=== PATIENT | male | born 2000 | race Caucasian/White ===

== ENCOUNTER 2022-03-20 14:41 | Emergency (ER) | payer OTHER, SELFPAY ==
--- NOTE | ~2022-03-20 | XR_ITS ---
EXAMINATION: XR foot LT min 3V DATE: 03/20/2022 15:07 INDICATION: Left foot pain. Injury. TECHNIQUE: 4 views of left foot were obtained. COMPARISON: None. FINDINGS: There is moderate hallux valgus. No fracture. Joint spaces are normal. IMPRESSION: 1. Moderate hallux valgus. Reviewed, dictated and finalized at location A. TIC CUTTER IMPRESSION: 1. Moderate hallux valgus.
--- NOTE | 2022-03-20 14:44 | ED.LOWEXIN ---
HPI - Extremity Injury (Lower) General Chief Complaint: Extremity Injury, Lower Stated Complaint: left foot injury Time Seen by Provider: 03/20/22 14:55 Source: patient and RN notes reviewed Mode of arrival: ambulatory Limitations: no limitations History of Present Illness HPI Narrative: 21-year-old male presents with concern for left ankle and foot injury. He reports that 2 days ago he rolled the ankle playing basketball. Reports he has been using crutches and has wrap the ankle. He reports pain worsens with weight-bearing MD complaint: ankle injury and foot injury Related Data Home Medications Medication Instructions Recorded Confirmed No Home Medications 03/20/22 03/20/22 Allergies Allergy/AdvReac Type Severity Reaction Status Date / Time No Known Allergies Allergy Verified 03/20/22 14:48 Review of Systems Review of Systems: CONSTITUTIONAL: Denies malaise, chills, sweats, or fever. SKIN: Denies rash or itching, open skin, laceration, abrasion, redness, warmth, swelling. MUSCULOSKELETAL: Reports left ankle and foot pain NEUROLOGIC: Denies numbness, weakness All systems reviewed & are unremarkable except as noted in HPI and below PMFSH Comments At time of signature, agree with nursing past medical, surgical, social and family history. There is no relevant family history pertinent to the presenting complaint Exam Narrative: GENERAL: Well-appearing, well-nourished, and in no acute distress. HEAD: Normocephalic, atraumatic. EYES: PERRLA, conjunctivae clear NECK: Supple. CHEST: Speaks in full sentences. No respiratory distress. HEART: Regular rate and rhythm. Normal and equal peripheral pulses. EXTREMITIES: Left ankle, foot, digits have grossly normal strength and sensation, grossly normal range of motion. Mild medial foot edema without ecchymosis. 5/5 strength with ankle in digit flexion and extension. Normal sensation with sensitivity to light touch and pain. Medial tenderness. No open wounds, no skin tenting, no devitalized tissue or atrophy, no trophic changes, no obvious deformity, alignment normal, nearby joints and structures intact. Distal pulses palpable and equal bilaterally, skin warm, dry, pink. Capillary refill less than 3 seconds. SKIN: Warm, dry, no rash. NEURO: Alert and oriented x3. PSYCH: Normal mood and affect Course Course Emergency Course: Patient is aware of diagnosis, understands and agrees to treatment plan. Anticipatory guidance given. Patient agrees to follow-up as directed and is aware of reasons to seek care at the emergency department. Portions of this record may have been created with voice recognition software Level of Care: Express Care Visit Vital Signs Vital signs: Reviewed. MDM - Extremity Injury (Lower) MDM Narrative Medical decision making narrative: Patients injury and pain is consistent with musculoskeletal etiology. No signs of neurological or vascular compromise on exam. Compartments and tissues are soft without signs of compartment syndrome. Pain is felt appropriate for further evaluation on an outpatient basis. Imaging Data My impression: Images reviewed, interpreted by radiologist, agree, see report. Radiologist's impression: EXAMINATION: XR foot LT min 3V DATE: 03/20/2022 15:07 INDICATION: Left foot pain. Injury. TECHNIQUE: 4 views of left foot were obtained. COMPARISON: None. FINDINGS: There is moderate hallux valgus. No fracture. Joint spaces are normal. IMPRESSION: 1. Moderate hallux valgus. Critical Care Time Critical Care Time Critical Care Time: No Discharge Plan Discharge Clinical Impression: Foot sprain Patient Disposition: Home, Self-Care Condition: Stable Instructions: Foot Sprain (ED) Additional Instructions: Avoid activities that cause pain until the pain subsides. Ice to the area 20-30 minutes 4-6 times a day Elevate above heart Elastic wrap as directed for comfort for the next 5-7 days Crutches as dir
[2022-03-20 14:50] VITALS: BP 128/51; PULSE 90; RESP 14; TEMP 36.6; O2SAT 100
== END 2022-03-20 15:23 | disposition home or self-care (01) ==
PROVIDERS: Emergency Provider Nurse Practitioner
DX: S93.602A Unspecified sprain of left foot, initial encounter (principal); X50.9XXA Other and unspecified overexertion or strenuous movements or postures, initial encounter; Y93.67 Activity, basketball
CPT/HCPCS: 73630; 99213; G0463

== ENCOUNTER 2023-02-10 13:41 | Emergency (ER) | payer OTHER, SELFPAY ==
[2023-02-10 13:56] VITALS: BP 143/91; PULSE 64; RESP 16; TEMP 36.9; O2SAT 100
--- NOTE | 2023-02-10 14:04 | ECG_ITS ---
Measurements Intervals [place] Rate: 93 P: 81 UT: 125 QRS: 79 QRSD: 90 T: 46 QT: 309 QTc: 385 Interpretive Statements SINUS RHYTHM WITH SINUS ARRHYTHMIA POSSIBLE LEFT ATRIAL ENLARGEMENT MINIMAL Q WAVES- INF/LAT LEADS BORDERLINE ST-T WAVE ABNORMALITY- INFERIOR LEADS BORDERLINE ECG NO PREVIOUS ECG AVAILABLE FOR COMPARISON Electronically Signed On 02-11-2023 6:58:03 LITHOGRAPHIC CAMERA OPERATOR by Ramy Sandoval D.O.
[2023-02-10 14:28] LABS: Basophils Percent Auto 0.4 % (0.2-1.2); Eosinophils Percent Auto 0.1 % (0-4.4); Hematocrit 43.5 % (42.0-52.0); Immature Granulocyte Absolute 0.04 K/mm3 (0.00-0.031); Immature Granulocyte Percent A 0.4 % (0-0.5); Lymphocytes Absolute Auto 0.73 K/mm3 (0.9-3.2); Lymphocytes Percent Auto 7.9 % (18.3-44.2); Mean Corpuscular HGB Conc 34.5 g/dl (32-36); Mean Corpuscular Hemoglobin 29.6 pg (26-34); Mean Corpuscular Volume 85.8 fl (80-100); Mean Platelet Volume 11.1 fl (7.4-10.4); Monocytes Absolute Auto 0.5 K/mm3 (0.1-0.6); Monocytes Percent Auto 5.7 % (2.6-8.5); Neutrophils Absolute Auto 7.9 K/mm3 (1.3-6.7); Neutrophils Percent Auto 85.5 % (45.5-73.1); Platelet Count Result 269 k/mm3 (150-375); Red Blood Count 5.07 M/mm3 (4.6-6.20); Red Cell Distribution Width 12.2 % (11.5-14.5); White Blood Count 9.3 K/mm3 (4.5-10.0)
[2023-02-10 14:30] LABS: Appearance Urine Clear (Clear); Bilirubin Urine Negative (Negative); Blood Urine Negative (Negative); Color Urine Yellow (Yellow); Glucose Urine UA Negative (Negative); Ketones Urine 1+ mg/dL (Negative); Leukocyte Esterase Ur Negative LEU/UL (Negative); Nitrate Urine Negative (Negative); Protein Urine Negative (Negative); Specific Grav Ur 1.007 (1.001-1.035)
[2023-02-10 14:34] LABS: Add Urine Microscopic? NO
[2023-02-10 14:42] LABS: Acetaminophen < 10 ug/mL (10-30); Ethanol < 10 mg/dL (<10); Salicylate < 1.0 mg/dL (2-20)
[2023-02-10 14:47] LABS: Amphetamine Screen Urine Negative (Negative); Barbiturate Screen Urine Negative (Negative); Benzodiazepines Screen Urine Negative (Negative); Cannabinoid Screen Urine Positive (Negative); Cocaine Screen Urine Negative (Negative); Methadone Screen Urine Negative (Negative); Opiate Screen Urine Negative (Negative); Phencyclidine Screen Urine Negative (Negative)
[2023-02-10 14:49] LABS: Alanine Aminotransferase 22 U/L (6-50); Albumin Level 5.4 g/dL (3.5-5.1); Alkaline Phosphatase 59 U/L (38-126); Anion Gap 15 mmol/L (8-16); Aspartate Amino Transferase 26 U/L (17-59); Bilirubin,Total 1.5 mg/dL (0.2-1.3); Blood Urea Nitrogen 9 mg/dL (9-20); Calcium 10.5 mg/dL (8.4-10.2); Carbon Dioxide 20 mmol/L (22-30); Chloride 103 mmol/L (98-107); Estimated Glomerular Filt Rate > 60; Glucose 126 mg/dL (65-110); Potassium 3.4 mmol/L (3.4-5.0); Sodium 138 mmol/L (137-145)
--- NOTE | 2023-02-10 15:11 | ED.PSYCH ---
HPI - Psych General Chief Complaint: Psychiatric Symptoms Stated Complaint: smoked thc Time Seen by Provider: 02/10/23 14:06 History of Present Illness HPI Narrative: 22-year-old male presenting for psychiatric evaluation. Patient's family is at bedside and helps with the history. He states that she was acting bizarrely earlier today. He seems to be having a manic episode and was jumping all around and saying things that did not make sense. He was paranoid and thought that people were out to kill him. EMS was called and reported that he continued to be paranoid in route, concern people were outside wanting to hurt him. Currently, patient is calm and cooperative. He states that he has been having worsening depression and anxiety lately. He feels that it is related to his stressful job. States that he has thought about hurting himself but he has never followed through. No plan for suicide. No homicidal ideation. States that he did feel paranoid earlier but he denies prior episodes of paranoia. No physical complaints. Related Data Home Medications Medication Instructions Recorded Confirmed No Home Medications 03/20/22 03/20/22 Allergies Allergy/AdvReac Type Severity Reaction Status Date / Time No Known Allergies Allergy Verified 02/10/23 14:30 Review of Systems Review of Systems: All systems reviewed & are unremarkable except as noted in HPI and below PMFSH Social History Social History Substance use type: marijuana Exam Narrative: GENERAL: Intermittently tearful, in no acute distress, pleasant and cooperative HEAD: Normocephalic, atraumatic. EYES: PERRLA and EOMI. ENT: Grossly unremarkable NECK: Supple. CHEST: No respiratory distress. HEART: Regular rate and rhythm ABDOMEN: Nondistended EXTREMITIES: Normal range of motion. No edema. SKIN: Warm, dry, no rash. NEURO: No focal deficits. Alert and oriented x3. PSYCH: Appears somewhat anxious, intermittently tearful when speaking about the situation, denies SI or HI Course Vital Signs Vital signs: Vital Signs Temperature 98.4 F 02/10/23 13:56 Pulse Rate 64 02/10/23 13:56 Respiratory Rate 16 02/10/23 13:56 Blood Pressure 143/91 H 02/10/23 13:56 Pulse Oximetry 100 02/10/23 13:56 Oxygen Delivery Room Air 02/10/23 13:56 Temperature 98.4 F 02/10/23 13:56 Pulse Rate 64 02/10/23 13:56 Respiratory Rate 16 02/10/23 13:56 Blood Pressure 143/91 H 02/10/23 13:56 Pulse Oximetry 100 02/10/23 13:56 Oxygen Delivery Room Air 02/10/23 13:56 MDM - Psych MDM Narrative Medical decision making narrative: 22-year-old male presenting for psychiatric evaluation. Vital stable. Exam remarkable for the above. Patient medically cleared. Evaluated by the crisis team who has contracted the patient for safety. Patient continues to deny SI HI. They have provided resources for close follow-up, his is at bedside and is supportive of this plan. Patient is also agreeable with this plan. They feel safe going home. Strict return precautions given. Discharged in stable condition. Differential Diagnosis Differential diagnosis: Likely acute psychosis, suicidal ideation, depression and acute anxiety Medical Records Attestation: I reviewed the patient's medical records. Lab Data Attestation: I reviewed the patient's lab results. 02/10/23 14:20 02/10/23 14:20 Labs: Lab Results 02/10/23 02/10/23 Range/Units 14:20 14:21 WBC 9.3 (4.5-10.0) K/mm3 RBC 5.07 (4.6-6.20) M/mm3 Hgb 15.0 (14.0-18.0) g/dL Hct 43.5 (42.0-52.0) % MCV 85.8 (80-100) fl MCH 29.6 (26-34) pg MCHC 34.5 (32-36) g/dl RDW 12.2 (11.5-14.5) % Plt Count 269 (150-375) k/mm3 MPV 11.1 H (7.4-10.4) fl Immature Gran % (Auto) 0.4 (0-0.5) % Neut % (Auto) 85.5 H (45.5-73.1) % Lymph % (Auto) 7.9 L (18.3-44.2) % [place] % (Auto)
[2023-02-10 16:13] LABS: SARS-CoV-2 RNA PCR Negative (Negative)
[2023-02-10 17:23] VITALS: BP 140/82; PULSE 62; RESP 20; O2SAT 100
== END 2023-02-10 17:25 | disposition home or self-care (01) ==
PROVIDERS: Emergency Provider Emergency Medicine
DX: F32.A Depression, unspecified (principal); F41.9 Anxiety disorder, unspecified; Z11.52 Encounter for screening for COVID-19; R94.31 Abnormal electrocardiogram [ECG] [EKG]
CPT/HCPCS: 36415; 80053; 80307; 81003; 84443; 85025; 87635; 93005; 99284

== ENCOUNTER 2023-09-10 19:53 | Emergency (ER) | payer MEDICAID, SELFPAY ==
--- NOTE | ~2023-09-10 | CT_ITS ---
EXAMINATION: CT brain wo con DATE: 09/10/2023 20:35 INDICATION: Seizure . TECHNIQUE: Computed tomography (CT) of the head was performed without intravenous contrast. The mA wa s adjusted according to patient size. Iterative reconstruction technique was employed. The dose-lengt h product was 605.33 mGy-cm. COMPARISON: None. FINDINGS: No acute intracranial hemorrhage or extra-axial fluid collection. No hydrocephalus, mass, or herniation. No acute ischemic infarct. Unremarkable dural venous sinus attenuation. No acute osseous abnormality. Bilateral maxillary mucosal thickening, the remaining aerated spaces are clear. IMPRESSION: No acute intracranial process. Reviewed, dictated and finalized at location K.
[2023-09-10 19:53] VITALS: BP 111/86; PULSE 98; RESP 14; O2SAT 97
--- NOTE | 2023-09-10 20:00 | ECG_ITS ---
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 Measurements Intervals [place] Rate: 91 P: 75 MO: 145 QRS: 76 QRSD: 90 T: 55 QT: 330 QTc: 408 Interpretive Statements SINUS RHYTHM ST ELEVATION, PROBABLY EARLY REPOLARIZATION [ST ELEVATION WITH NORMALLY INFLECTED T WAVE] NONSPECIFIC ST & T-WAVE ABNORMALITY No previous ECG available for comparison Electronically Signed On 09-11-2023 14:17:21 CDT by Esteban Toledo M.D.
[2023-09-10 20:05] VITALS: PULSE 91
[2023-09-10 20:17] LABS: Basophils Absolute Auto 0.1 K/mm3 (0.0-0.1); Basophils Percent Auto 0.5 % (0.2-1.2); Eosinophils Absolute Auto 0.4 K/mm3 (0-0.3); Eosinophils Percent Auto 3.1 % (0-4.4); Hematocrit 41.7 % (42.0-52.0); Hemoglobin 14.4 g/dL (14.0-18.0); Immature Granulocyte Absolute 0.07 K/mm3 (0.00-0.031); Immature Granulocyte Percent A 0.6 % (0-0.5); Lymphocytes Absolute Auto 1.86 K/mm3 (0.9-3.2); Lymphocytes Percent Auto 16.3 % (18.3-44.2); Mean Corpuscular HGB Conc 34.5 g/dl (32-36); Mean Corpuscular Hemoglobin 30.5 pg (26-34); Mean Corpuscular Volume 88.3 fl (80-100); Mean Platelet Volume 10.5 fl (7.4-10.4); Monocytes Absolute Auto 0.7 K/mm3 (0.1-0.6); Monocytes Percent Auto 6.1 % (2.6-8.5); Neutrophils Absolute Auto 8.4 K/mm3 (1.3-6.7); Neutrophils Percent Auto 73.4 % (45.5-73.1); Platelet Count Result 290 k/mm3 (150-375); Red Blood Count 4.72 M/mm3 (4.6-6.20); Red Cell Distribution Width 11.9 % (11.5-14.5); White Blood Count 11.4 K/mm3 (4.5-10.0)
[2023-09-10 20:29] LABS: Lactic Acid Reflex 2.4 mmol/L (0.7-2.0)
--- NOTE | 2023-09-10 20:32 | ED.SEIZURE ---
HPI - Seizure General Chief Complaint: Seizure Stated Complaint: seizure Time Seen by Provider: 09/10/23 20:22 History of Present Illness HPI Narrative: Pt was at [address] and had reported seizure lasting a couple of minutes. Pt has no prior seizure history. Pt has no recollection of event and woke up in ambulance in route. Pt has no complaints right now. Pt denies LAND or weakness or numbness. Pt admits to drinking some beers and has smoked marijuana. Related Data Home Medications Medication Instructions Recorded Confirmed No Home Medications 03/20/22 03/20/22 Allergies Allergy/AdvReac Type Severity Reaction Status Date / Time No Known Allergies Allergy Verified 02/10/23 14:30 Review of Systems Review of Systems: All systems reviewed & are unremarkable except as noted in HPI and below PMFSH Social History Social History Substance use type: marijuana Exam Const: General: healthy appearing and no acute distress Nutritional Appearance: well nourished Orientation/consciousness: patient oriented x3 Limitations: no limitations HENMT: Head: normal to inspection Face/Nose/Sinus: Normal external nose present Eyes: Conjunctivae: conjunctivae normal Pupils: Equal, round and reactive pupils present EOM: EOMs intact bilaterally Neck: Neck: normal visual inspection and no lymphadenopathy Resp: Effort & Inspection: normal respiratory effort Auscultation: clear to auscultation bilaterally Cardio: Rate: regular rate Rhythm: regular rhythm GI: GI Palp: Yes Soft to palpation Auscultation: normal bowel sounds Skin: General skin exam: normal color Rashes: no rashes Wounds: no wounds Extrem: General: normal to inspection and no clubbing, cyanosis or edema Psych: Appearance: grossly normal Mental Status: mental status grossly normal Affect: normal affect Attitude: cooperative Course Vital Signs Vital signs: Vital Signs Pulse Rate 98 09/10/23 19:53 Respiratory Rate 14 09/10/23 19:53 Blood Pressure 111/86 09/10/23 19:53 Pulse Oximetry 97 09/10/23 19:53 Oxygen Delivery Room Air 09/10/23 19:53 Pulse Rate 95 09/10/23 21:29 Respiratory Rate 16 09/10/23 21:29 Blood Pressure 120/71 09/10/23 21:29 Pulse Oximetry 98 09/10/23 21:29 Oxygen Delivery Room Air 09/10/23 19:53 MDM - Seizure MDM Narrative Medical decision making narrative: Pt has reported seizure with no prior hs. Pt has no complaints now. will check labs and CT head to rule out tumor or mass and to rule out electrolyte abnormality. CT and labs unremarkable. will send home with neuro follow up Lab Data 09/10/23 20:12 09/10/23 21:28 Labs: Lab Results 09/10/23 09/10/23 Range/Units 20:12 21:28 WBC 11.4 H (4.5-10.0) K/mm3 RBC 4.72 (4.6-6.20) M/mm3 Hgb 14.4 (14.0-18.0) g/dL Hct 41.7 L (42.0-52.0) % MCV 88.3 (80-100) fl MCH 30.5 (26-34) pg MCHC 34.5 (32-36) g/dl RDW 11.9 (11.5-14.5) % Plt Count 290 (150-375) k/mm3 MPV 10.5 H (7.4-10.4) fl Immature Gran % (Auto) 0.6 H (0-0.5) % Neut % (Auto) 73.4 H (45.5-73.1) % Lymph % (Auto) 16.3 L (18.3-44.2) % [place] % (Auto) 6.1 (2.6-8.5) % Eos % (Auto) 3.1 (0-4.4) % Baso % (Auto) 0.5 (0.2-1.2) % Lymph # (Auto) 1.86 (0.9-3.2) K/mm3 [place] # (Auto) 0.7 H (0.1-0.6) K/mm3 Eos # (Auto) 0.4 H (0-0.3) K/mm3 Baso # (Auto) 0.1 (0.0-0.1) K/mm3 Abs Immat Gran (auto) 0.07 H (0.00-0.031) K/mm3 Absolute Neuts (auto) 8.4 H (1.3-6.7) K/mm3 Absolute Nucleated RBC 0.000 (0.0-0.012) K/mm3 Nucleated RBC % 0.0 (0.0-0.2) % Sodium 137 (137-145) mmol/L Potassium 4.1 (3.4-5.0) mmol/L Chloride 102 (98-107) mmol/L Carbon Dioxide 26 (22-30) mmol/L Anion Gap 9 (4-12) mmol/L BUN 9 (9-20) mg/dL Creatinine 0.90 (0.7-1.3) mg/dL Estim Creat Clear Calc 99 ml/min P[place]ha
[2023-09-10 20:40] LABS: Ethanol 13 mg/dL (<10)
[2023-09-10 21:29] VITALS: BP 120/71; PULSE 95; RESP 16; O2SAT 98
[2023-09-10 21:52] LABS: Amphetamine Screen Urine Negative (Negative); Barbiturate Screen Urine Negative (Negative); Benzodiazepines Screen Urine Negative (Negative); Cannabinoid Screen Urine Positive (Negative); Cocaine Screen Urine Negative (Negative); Methadone Screen Urine Negative (Negative); Opiate Screen Urine Negative (Negative); Phencyclidine Screen Urine Negative (Negative)
[2023-09-10 22:15] LABS: Alanine Aminotransferase 18 U/L (6-50); Albumin Level 4.6 g/dL (3.5-5.1); Alkaline Phosphatase 54 U/L (38-126); Anion Gap 9 mmol/L (4-12); Aspartate Amino Transferase 22 U/L (17-59); Bilirubin,Total 0.7 mg/dL (0.2-1.3); Blood Urea Nitrogen 9 mg/dL (9-20); Calcium 9.9 mg/dL (8.4-10.2); Carbon Dioxide 26 mmol/L (22-30); Chloride 102 mmol/L (98-107); Creatine Kinase 74 U/L (55-170); Estimated CRCL calculation 99 ml/min; Estimated Glomerular Filt Rate > 60; Glucose 101 mg/dL (65-110); Magnesium 2.1 mg/dL (1.6-2.3); Potassium 4.1 mmol/L (3.4-5.0); Sodium 137 mmol/L (137-145)
[2023-09-10 23:15] LABS: Reflex Lactic Acid Yes or No Add Lactic
== END 2023-09-10 22:23 | disposition home or self-care (01) ==
PROVIDERS: Emergency Medicine; Emergency Provider Emergency Medicine
DX: R56.9 Unspecified convulsions (principal); R94.31 Abnormal electrocardiogram [ECG] [EKG]
CPT/HCPCS: 36415; 70450; 80053; 80307; 82550; 83605; 83735; 85025; 93005; 99284

== ENCOUNTER 2024-08-26 23:25 | Emergency (ER) | payer MEDICAID, SELFPAY ==
--- NOTE | ~2024-08-26 | CT_ITS ---
Non-contrast Head CT History: Altered mental status Technique: Axial non-contrast imaging of the brain was performed. Dose reduction technique was used on this scan by utilizing automated exposure control and iterative reconstruction technique. The dose -length product (DLP) was 681.00 mGy-cm. Findings: There is no evidence of intracranial hemorrhage, mass lesion, or acute infarct. Brain par enchyma appears normal. The ventricles and subarachnoid spaces are normal in size. The calvarium ap pears normal. The visualized paranasal sinuses and mastoid air cells are clear. Impression: No significant abnormality seen. Reviewed, dictated and finalized at location . Impression: No significant abnormality seen.
[2024-08-26 23:26] VITALS: BP 117/73; PULSE 126; RESP 15; TEMP 36.6; O2SAT 99
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
[2024-08-26] MEDS: LORazepam INJ (*CRX) 2 MG/ML VIAL IM (23:46)
[2024-08-26] MEDS: diphenhydrAMINE HCl INJ 50 MG/ML VIAL IM (23:47)
[2024-08-26] MEDS: HALOPERIDOL LACTATE 5 MG/ML VIAL IM (23:47)
[2024-08-26 23:49] VITALS: O2SAT 99
[2024-08-27] VITALS (8 sets, daily range): BP systolic 116–138; BP diastolic 65–91; PULSE 103–127; RESP 15–23; O2SAT 96–100
[2024-08-27 00:28] LABS: Basophils Percent Auto 0.2 % (0.2-1.2); Eosinophils Absolute Auto 0.3 K/mm3 (0-0.3); Eosinophils Percent Auto 2.4 % (0-4.4); Hematocrit 39.6 % (42.0-52.0); Hemoglobin 12.8 g/dL (14.0-18.0); Immature Granulocyte Absolute 0.03 K/mm3 (0.00-0.031); Immature Granulocyte Percent A 0.2 % (0-0.5); Lymphocytes Absolute Auto 0.72 K/mm3 (0.9-3.2); Mean Corpuscular HGB Conc 32.3 g/dl (32-36); Mean Corpuscular Hemoglobin 29.8 pg (26-34); Mean Corpuscular Volume 92.3 fl (80-100); Mean Platelet Volume 10.8 fl (7.4-10.4); Monocytes Absolute Auto 0.6 K/mm3 (0.1-0.6); Monocytes Percent Auto 5.1 % (2.6-8.5); Neutrophils Absolute Auto 10.3 K/mm3 (1.3-6.7); Neutrophils Percent Auto 86.1 % (45.5-73.1); Platelet Count Result 201 k/mm3 (150-375); Red Blood Count 4.29 M/mm3 (4.6-6.20); Red Cell Distribution Width 13.2 % (11.5-14.5)
--- OUTSIDE RECORDS SUMMARY | 2024-08-27 00:35 | XMS_ITS | Patient Health Record ---
Author Organization [facility] Address [address] [place] [address] Care Team Providers Care Ship'S Surveyor Name Role Phone Bebeto Kang Primary Care Provider Riya Chakraborty Unavailable [phone] Stanley, Jenni Unavailable [phone] Allergies No Known Allergies Results Component Value Reference Range Notes 12 Panel Urine Drug Screen Reviewed date:05/16/2024 11:40:11 AM Interpretation: Performing Lab: Notes/Report: THC POS PÉREZ neg MOP (OPI) neg AMP neg MET neg BAR neg BZO neg MDMA neg MTD neg OXY neg PCP neg BUP neg QuantiFERON-TB Gold Plus ([id number]) Reviewed date:05/26/2024 04:24:27 PM Interpretation: Performing Lab:[facility] [place], [address] [facility], [place], Phone - [phone], [facility] Notes/Report: QuantiFERON Incubation Incubation performed. QuantiFERON-TB Gold Plus Negative Negative No response to M tuberculosis antigens detected. Infection with M tuberculosis is unlikely, but high risk individuals should be considered for additional testing (ATS/IDSA/CDC Clinical Practice Guidelines, 2017). The reference range is an Antigen minus Nil result of <0.35 IU/mL. Chemiluminescence immunoassay methodology QuantiFERON Criteria QuantiFERON-TB Gold Plus is a qualitative indirect test for M tuberculosis infection (including disease) and is intended for use in conjunction with risk assessment, radiography, and other medical and diagnostic evaluations. The QuantiFERON-TB Gold Plus result is determined by subtracting the Nil value from either TB antigen (Ag) value. The Mitogen tube serves as a control for the test. QuantiFERON TB1 Ag Value 0.01 QuantiFERON TB2 Ag Value 0.01 QuantiFERON Nil Value 0.00 QuantiFERON Mitogen Value >10.00 Reason For Referral No Information Medications Medication SIG (Take, Route, Fr equency, Duration) Notes Start Date End Date Status Depakote 250 MG 1 tablet Orally Twice a day Active OLANZapine 20 MG 1 tablet Orally Once a day Active Problems Problem Type SNOMED Code ICD Code Onset Dates Problem Status W/U Status Risk Notes Problem Tobacco user (546720237) Nicotine dependence, unspecified, uncomplicated (F17.200) Active confirmed Problem Bipolar 1 disorder, depressed (F31.9) Active confirmed Diagnosis self-reported; patient struggled to identify symptom experience. Has reported history of stalking recieving two restraining orders. Disclosed history of auditory and visual hallucinations . Rule out psychotic disorder. Problem Mental health disorder (97357159) Mental health disorder (F99) Active confirmed Vital Signs Heart Rate 76 /min 05/16/2024 Respiratory Rate 16 /min 05/16/2024 Blood pressure diastolic 86 mm Hg 05/16/2024 Oximetry 98 % 05/16/2024 Height 69 in 05/16/2024 Blood pressure systolic 120 mm Hg 05/16/2024 Weight 167.6 lbs 05/16/2024 BMI 24.75 kg/m2 05/16/2024 Encounters Encounter Location Date Provider Diagnosis Formerly [facility], [facility] [place] [address] 05/16/2024 Bebeto Kang Adult general medica l exam Z00.00 ; Mental health disorder F99 ; Nicotine dependence, unspecified, uncomplicated F17.200 and Exposure to potential infection Z20.9 Formerly [facility], [facility] [address] [place] [address] 05/16/2024 Jenni Angel Bipolar 1 disorder, depressed F31.9 Assessments Encounter Date Diagnosis (ICD Code) Assessment Notes Treatment Notes Treatment Clinical Notes Section Notes 05/16/2024 Bipolar 1 disorder, depressed (ICD-10 - F31.9) Diagnosis self-reported; patient struggled to identify symptom experience. Has reported history of stalking recieving two restraining orders. Disclosed history of auditory and visual hallucinations . Rule out psychotic disorder. 05/16/2024 Mental health disorder (ICD-10 - F99) PSYCH EVALUATION PENDING 05/16/2024 Adult general medical exam (ICD-10 - Z00.00) NO HX OR PE FINDINGS THAT WOULD LIMIT HIS PARTICIPATION IN UNIT ACTVITIES. 05/16/2024 Nicotine dependence, unspecified, uncomplicated (ICD-10 - F17.200) 05/16/2024 Exposure to potential infection (ICD-10 - Z20.9) 05/16/2024 Other [facility]. 05/16/2024 Other [facility] met with José Miguel to assess behavioral health history and needs for current treatment. He was struggled to identify interested and goals for treatment, but was amenable to participating in groups to assist in learning and developing safe and healthy coping skills. José Miguel would benefit from continued support, development of adaptive and compensatory stragtegies to support attaining and maintaining indepedent living skills and emotional regulation. Plan Of Treatment No Information Insurance Providers Payer Name Payer Address Payer Phone Subscriber Number Group Number Insured Name Patient Relationship to Insured Coverage Start Date Coverage End Date [facility] Attn Claims Department [address] [address] [phone] [id number] José Miguel Marshall Self - patient is the insured 5 [employer] Attn Claims Department [address] [id number] José Miguel Marshall Self - patient is the insured 5 [facility] [employer] Claims Department [address] [id number] José Miguel Marshall Self - patient is the insured 5
--- OUTSIDE RECORDS SUMMARY | 2024-08-27 00:35 | XMS_ITS | Clinical Summary ---
Author Organization [facility] Address [address] [place] [address] Phone Care Team Providers Care Plastics Process Hand Name Role Phone Provider, None Primary Care Provider Unavailabl e Allergies No known active allergies Medications OLANZapine (ZyPREXA) 15 MG Tablet Take 15 mg by mouth daily. Active divalproex (DEPAKOTE) 250 MG Tablet Delayed Response Take 250 mg by mouth 2 times daily. Active famotidine (Pepcid) 20 MG Tablet Take 20 mg by mouth 2 times daily. Active Social History Tobacco Use Types Packs/Day Years Used Date Smoking Tobacco: Some Days Cigarettes Smokeless Tobacco: Never Tobacco Cessation:Ready to Q uit: Not Asked; Counseling Given: Not Answered Alcohol Use Standard Drinks/Week Comments Not Currently 0 (1 standard drink = 0.6 oz pur e alcohol) Sex and Gender Information Value Date Recorded Sex Assigned at Male 03/25/2024 6:06 PM [employer] Legal Sex Male 3:57 PM [employer] Gender Identity Male 03/25/2024 6:06 PM [employer] Sexual Orientation Not on file Last Filed Vital Signs Vital Sign Reading Time Taken Comments Blood Pressure 135/95 05/08/2024 10:12 AM [employer] Pulse 77 05/08/2024 10:12 AM [employer] Temperature 36.2 C (97.1 F) 05/08/2024 10:02 AM [employer] Respiratory Rate 16 05/08/2024 10:02 AM [employer] Oxygen Saturation 98% 05/08/2024 10:12 AM [employer] Inhaled Oxygen Concentration - - Weight 73 kg (161 lb) 05/08/2024 10:02 AM [employer] Height 175.3 cm (5' 9 ) 05/08/2024 10:02 AM [employer] Body Mass Index 23.78 05/08/2024 10:02 AM STE[employer]NER Plan of Treatment Not on file Insurance MEDICAID [facility] Care Teams Plastics Process Hand Relationship Specialty Start Date End Date Provider, None [place] PCP - General 03/25/24
--- OUTSIDE RECORDS SUMMARY | 2024-08-27 00:35 | XMS_ITS | Referral Summary ---
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 [place] facility (including now)? Yes 07/20/2024 Personal Safety Answer Date Recorded Have you ever been in or are you currently in a harmful physical or emotional relationship or is someone making you feel afraid or unsafe? Denies 08/18/2024 Education Answer Date Recorded What is the highest level of school you have completed or the highest degree you have received? 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 Answer Date of Assessment Author No 07/16/2024 2:34 PM CDT Irma Yepez, [employer] SALES REPRESENTATIVE * Are you blind or do you have serious difficulty seeing, even when wearing glasses? Answer Date of Assessment Author No 07/16/2024 2:34 PM CDT Irma Yepez, [employer] SALES REPRESENTATIVE * Do you have serious difficulty walking or climbing stairs? Answer Date of Assessment Author No 07/16/2024 2:34 PM CDT Irma Yepez, [employer] SALES REPRESENTATIVE * Do you have serious difficulty dressing or bathing? Answer Date of Assessment Author No 07/16/2024 2:34 PM CDT Irma Yepez, [employer] SALES REPRESENTATIVE * Because of a physical, mental, or emotional condition, do you have serious difficulty doing errandsalone such as visiting the doctor? Answer Date of Assessment Author Yes 07/16/2024 2:34 PM CDT Imra Yepez, [employer] SALES REPRESENTATIVE Mental Status * Because of a physical, mental, or emotional condition, do you have serious difficulty concentrating, remembering, or making decisions? (5 years old or older) Answer Entry Date Author Yes 07/16/2024 2:34 PM CDT Irma Yepez [employer] SALES REPRESENTATIVE Plan of Treatment Not on file Procedures Procedure Name Priority Date/Time Associated Diagnosis Comments EGFR STAT 08/15/2024 10:26 AM CDT DIFFERENTIAL AUTO STAT 08/15/2024 10: 26 AM CDT URINALYSIS AND REFLEX TO MICROSCOPIC STAT 08/15/2024 10:26 AM CDT DRUGS OF ABUSE SCREEN, URINE WITHOUT CONFIRMATION STAT 08/15/2024 10:26 AM CDT ETHANOL STAT 08/15/2024 10:26 AM CDT THYROID FUNCTION CASCADE STAT 08/15/2024 10:26 AM CDT COMPREHENSIVE METABOLIC PANEL STAT 08/15/2024 10:26 AM CDT CBC WITH AUTO DIFFERENTIAL STAT 08/15/2024 10:26 AM CDT DIFFERENTIAL AUTO Timed 08/12/2024 1:2 7 PM CDT CBC WITH AUTO DIFFERENTIAL Timed 08/12/2024 1:27 PM CDT VALPROIC ACID LEVEL, TOTAL Timed 08/11/2024 11:02 PM CDT CLOZAPINE (CLOZARIL) Timed 08/11/2024 11:02 PM CDT DIFFERENTIAL AUTO Timed 08/07/2024 8:2 9 AM CDT CBC WITH AUTO DIFFERENTIAL Timed 08/07/2024 8:29 AM CDT VALPROIC ACID LEVEL, TOTAL STAT 08/07/2024 8:29 AM CDT DIFFERENTIAL AUTO STAT 07/31/2024 4:3 6 PM CDT CBC WITH AUTO DIFFERENTIAL STAT 07/31/2024 4:36 PM CDT VALPROIC ACID LEVEL, TOTAL Timed 07/28/2024 9:47 PM CDT URINALYSIS AND REFLEX TO MICROSCOPIC STAT 07/20/2024 4:34 AM CDT DRUGS OF ABUSE SCREEN, URINE WITHOUT CONFIRMATION STAT 07/20/2024 4:34 AM CDT NE CRITICAL CARE ILL/INJURED PATIENT INIT 30-74 MIN Routine 07/19/2024 9:44 PM CDT EGFR STAT 07/19/2024 8:38 PM CDT DIFFERENTIAL AUTO STAT 07/19/2024 8:3 8 PM CDT ETHANOL STAT 07/19/2024 8:38 PM CDT COMPREHENSIVE METABOLIC PANEL STAT 07/19/2024 8:38 PM CDT CBC WITH AUTO DIFFERENTIAL STAT 07/19/2024 8:38 PM CDT NE CRITICAL CARE ILL/INJURED PATIENT INIT 30-74 MIN Routine 07/16/2024 5:12 AM CDT DRUGS OF ABUSE SCREEN, URINE WITHOUT CONFIRMATION STAT 07/16/2024 2:26 AM CDT URINALYSIS AND REFLEX TO MICROSCOPIC AND CULTURE STAT 07/16/2024 2:26 AM CDT POCT RAPID HIV ANTIBODY COMMUNITY SCREENING-YASMIN ELIGIBLE Routine 07/16/2024 2:07 AM CDT EGFR STAT 07/16/2024 12:46 AM CDT DIFFERENTIAL AUTO STAT 07/16/2024 12: 46 AM CDT VALPROIC ACID LEVEL, TOTAL STAT 07/16/2024 12:46 AM CDT ETHANOL STAT 07/16/2024 12:46 AM CDT THYROID FUNCTION CASCADE STAT 07/16/2024 12:46 AM CDT COMPREHENSIVE METABOLIC PANEL STAT 07/16/2024 12:46 AM CDT CBC WITH AUTO DIFFERENTIAL STAT 07/16/2024 12:46 AM CDT XR HAND RIGHT 3 OR MORE VIEWS ED 07/11/2024 12:06 AM CDT DRUGS OF ABUSE SCREEN, URINE WITHOUT CONFIRMATION STAT 07/10/2024 4:25 PM CDT URINALYSIS AND REFLEX TO MICROSCOPIC AND CULTURE STAT 07/10/2024 4:25 PM CDT COVID-19 CORONAVIRUS RNA STAT 07/10/2024 2:49 PM CDT EGFR STAT 07/10/2024 2:46 PM CDT DIFFERENTIAL AUTO STAT 07/10/2024 2:4 6 PM CDT ETHANOL STAT 07/10/2024 2:46 PM CDT COMPREHENSIVE METABOLIC PANEL STAT 07/10/2024 2:46 PM CDT CBC WITH AUTO DIFFERENTIAL STAT 07/10/2024 2:46 PM CDT URINALYSIS AND REFLEX TO MICROSCOPIC STAT 06/29/2024 6:16 AM CDT DRUGS OF ABUSE SCREEN, URINE WITHOUT CONFIRMATION STAT 06/29/2024 6:16 AM CDT EGFR STAT 06/29/2024 5:39 AM CDT VALPROIC ACID LEVEL, TOTAL STAT 06/29/2024 5:39 AM CDT DIFFERENTIAL AUTO STAT 06/29/2024 5:3 9 AM CDT ETHANOL STAT 06/29/2024 5:39 AM CDT COMPREHENSIVE METABOLIC PANEL STAT 06/29/2024 5:39 AM CDT CBC WITH AUTO DIFFERENTIAL STAT 06/29/2024 5:39 AM CDT VALPROIC ACID LEVEL, TOTAL Timed 06/23/2024 8:21 PM CDT HIV 1/2 ANTIBODY PLUS P24 ANTIGEN Routine 06/19/2024 11:58 AM CDT RPR Routine 06/19/2024 11:58 AM CDT DRUGS OF ABUSE SCREEN, URINE WITHOUT CONFIRMATION STAT 06/18/2024 2:58 PM CDT URINALYSIS AND REFLEX TO MICROSCOPIC AND CULTURE STAT 06/18/2024 2:58 PM CDT NE CRITICAL CARE ILL/INJURED PATIENT INIT 30-74 MIN Routine 06/18/2024 8:32 AM CDT EGFR STAT 06/18/2024 3:30 AM CDT DIFFERENTIAL AUTO STAT 06/18/2024 3:3 0 AM CDT ETHANOL STAT 06/18/2024 3:30 AM CDT THYROID FUNCTION CASCADE STAT 06/18/2024 3:30 AM CDT BASIC METABOLIC PANEL STAT 06/18/2024 3:30 AM CDT CBC WITH AUTO DIFFERENTIAL STAT 06/18/2024 3:30 AM CDT HEPATITIS C ANTIBODY Routine 10/02/2023 5:43 AM CDT from Last 3 Months or Most Recently Relevant to Health Maintenance Results * eGFR (08/15/2024 10:26 AM CDT) eGFR >90 >=60 mL/min/1. 73 m2 Comment: Interpretive Data Reference Interval Normal >/= 90 mL/min/1.73m2 Mildly decreased* 60 - 89 mL/min/1.73m2 Mildly to moderately decreased 45 - 59 mL/min/1.73m2 Moderately to severely decreased 30 - 44 mL/min/1.73m2 Severely decreased 15 - 29 mL/min/1.73m2 Kidney Failure < 15 mL/min/1.73m2 *Relative to young adult level Estimated glomerular filtration rate is determined by the 2020 CKD-EPI equation recommended by the National Kidney [employer] (A Unifying Approach to GFR Estimation: Recommendations of the NKF-ASK Task Force on Reassessing the Inclusion of Race in Diagnosing Kidney Disease, JASN 2020). The CKD-EPI equation should not be used for patients with unstable renal function and has not been validated in children and those over 70. Current interpretive data was last reviewed 2021. Blood 08/15/2024 10:2 6 AM CDT 08/15/2024 10:40 AM CDT us Kendrick Hassan MD LAB BLOOD ORDERABLES Final Result [facility] Department [place] [address] * (ABNORMAL) Differential, auto (08/15/2024 10:26 AM CDT) Neutrophil abs 7.40(H) 1.50 - 6.50 K/cumm Imm gran abs 0.03 0.00 - 0.10 K/cumm [facility] Lymphocyte abs 1.10 0.80 - 3.30 K/cumm [facility] Monocyte abs 1.08(H) 0.20 - 0.80 K/cumm [facility] Eosinophil abs 0.29 0.00 - 0.50 K/cumm [facility] Basophil abs 0.02 0.00 - 0.10 K/cumm [facility] Neutrophil pct 74.6 % [facility] Comment: Interpretive Data Percent cell count reference ranges are not reported, since discordance with absolute values may lead to misinterpretation of CBC data. Current Interpretive Data was last revised on 2017. Imm gran pct 0.3 % [facility] Comment: Interpretive Data Percent cell count reference ranges are not reported, since discordance with absolute values may lead to misinterpretation of CBC data. Current Interpretive Data was last revised on 2017. Lymphocyte pct 11.1 % [facility] Comment: Interpretive Data Percent cell count reference ranges are not reported, since discordance with absolute values may lead to misinterpretation of CBC data. Current Interpretive Data was last revised on 2017. Monocyte pct 10.9 % [facility] Comment: Interpretive Data Percent cell count reference ranges are not reported, since discordance with absolute values may lead to misinterpretation of CBC data. Current Interpretive Data was last revised on 2017. Eosinophil pct 2.9 % [facility] Comment: Interpretive Data Percent cell count reference ranges are not reported, since discordance with absolute values may lead to misinterpretation of CBC data. Current Interpretive Data was last revised on 2017. Basophil pct 0.2 % [facility] Comment: Interpretive Data Percent cell count reference ranges are not reported, since discordance with absolute values may lead to misinterpretation of CBC data. Current Interpretive Data was last revised on 2017. Blood 08/15/2024 10:2 6 AM CDT 08/15/2024 10:40 AM CDT Kendrick Hassan MD LAB BLOOD ORDERABLES Final Result Performing Organization Address City/[facility] Co de Phone Number [facility] Department [place] [address] * Thyroid Function [place] (08/15/2024 10:26 AM CDT) TSH 2.73 0.30 - 4.20 mcIUnit/mL Comment:Reviewed Blood 08/15/2024 10:2 6 AM CDT 08/15/2024 10:36 AM CDT Kendrick Hassan MD LAB BLOOD ORDERABLES Final Result Performing Organization Address City/[facility] Co de Phone Number [facility] Department [place] [address] * (ABNORMAL) Urinalysis reflex to microscopic (08/15/2024 10:26 AM CDT) Color, ur Yellow Yellow Clarity, ur Clear Clear [facility] Specific gravity, ur 1.021 1.003 - 1.030 [facility] pH, urine 7.0 [facility] Comment: Interpretive Data U rine pH is affected by diet, medications, systemic acid-base disturbances, and renal tubular function. pH may affect urinary stone formation. For example, urine pH below 6.0 may help reduce the tendency for calcium phosphate stones and pH greater than 6.0 may reduce the tendency for uric acid stone formation. Source: [facility] Current Interpretive Data was last revised on 2017 Protein, ur ql Trace Negative [facility] Glucose, ur ql Negative Negative [facility] Ketones, ur Negative Negative [facility] Bilirubin, ur Negative Negative [facility] Blood, ur Negative Negative [facility] Urobilinogen, ur 2.0(A) <2.0 mg/dL [facility] Nitrite, ur Negative Negative [facility] Leukocyte esterase, ur Negative Negative [facility] UA reflex comment Reflex conditions for microscopic UA not met. [facility] Urine 08/15/2024 10:2 6 AM CDT 08/15/2024 10:36 AM CDT us Kendrick Hassan MD LAB URINE ORDERABLES Final Result [facility] Department [place] [address] * (ABNORMAL) CBC with auto differential (08/15/2024 10:26 AM CDT) WBC 9.92(H) 3.80 - 9.90 K/cumm Hgb 12.9(L) 13.0 - 17.5 g/dL [facility] Hct 38.7(L) 38.9 - 50.3 % [facility] Plt 175 150 - 400 K/cumm [facility] MPV 11.3 9.1 - 12.3 fL [facility] RBC 4.40 4.30 - 5.80 M/cumm [facility] MCV 88.0 81.3 - 96.4 fL [facility] MCH 29.3 27.1 - 33.3 pg [facility] MCHC 33.3 32.3 - 35.7 g/dL [facility] RDW CV 12.8 11.1 - 14.9 % [facility] RDW SD 41.1 35.7 - 48.1 fL [facility] NRBC abs 0.00 0.00 - 0.01 K/cumm [facility] Blood Venous blood specimen / Unknown 08/15/2024 10:26 AM CDT 08/15/2024 10:40 AM CDT us Kendrick Hassan MD LAB BLOOD ORDERABLES Final Result [facility] Department [place] [address] * (ABNORMAL) Drugs of Abuse Screen, Urine without Confirmation (08/15/2024 10:26 AM CDT) Amphetamine, ur Not Detected CutOff 500ng/mL Comment: Interpretive Data - Amphetamines: Samples containing greater than 500 ng/mL d-methamphetamine or other cross-reacting amphetamine compounds are reported as positive. Amphetamine immunoassays are subject to significant false positive rates due to cross-reactivity of non-amphetamine drugs. Confirmatory testing required for definitive results. Current Interpretive Data was last reviewed 2022. Barbiturates, ur Not Detected CutOff 200ng/mL [facility] Comment: Interpretive Data - Barbiturates: Samples containing greater than 200 ng/mL secobarbital or other cross-reacting barbiturate compounds are reported as positive. False positive and false negative results are possible. Confirmatory testing required for definitive results. Current Interpretive Data was last reviewed 2022. Benzodiazepines, ur Not Detected CutOff 100ng/mL [facility] Comment: Interpretive Data - Benzodiazepines: Samples containing greater than 100 ng/mL nordiazepam or other cross-reacting compounds are reported as positive. False positive and false negative results are possible. Confirmatory testing required for definitive results. Current Interpretive Data was last reviewed 2022. Cannabinoids, ur Screen Positive, presumptive (A) CutOff 50 ng/mL [facility] Comment: Interpretive Data - Cannabinoids: Samples containing greater than 50 ng/mL delta-9 THC -COOH or other cross- reacting compounds are reported as positive. False positive and false negative results are possible. Confirmatory testing required for definitive results. Current Interpretive Data was last reviewed 2022. Cocaine, ur Not Detected CutOff 150ng/mL [facility] Comment: Interpretive Data - Cocaine: Samples containing greater than 150 ng/mL benzoylecgonine or other cross- reacting compounds are reported as positive. False positive and false negative results are possible. Confirmatory testing required for definitive results. Current Interpretive Data was last reviewed 2022. Fentanyl, Ur Not Detected CutOff 5 ng/mL [facility] Comment: Interpretive Data - Fentanyl: Samples containing greater than 5 ng/mL norfentanyl, fentanyl, or other cross-reacting fentanyl compounds are reported as positive. False positive and false negative results are possible. Confirmatory testing required for definitive results. Current Interpretive Data was last reviewed 2023. Methadone, ur Not Detected CutOff 300ng/mL [facility] Comment: Interpretive Data - Methadone: Samples containing greater than 300 ng/mL d,l-methadone or other cross-reacting compounds are reported as positive. False positive and false negative results are possible. Confirmatory testing required for definitive results. Current Interpretive Data was last reviewed 2022. Opiates, ur Not Detected CutOff 300ng/mL [facility] Comment: Interpretive Data - Opiates: Samples containing greater than 300 ng/mL morphine or other cross-reacting compounds are reported as positive. False positive and false negative results are possible. Confirmatory testing required for definitive results. Current Interpretive Data was last reviewed 2022. Oxycodone, ur Not Detected CutOff 100ng/mL [facility] Comment: Interpretive Data - Oxycodone: Samples containing greater than 100 ng/mL oxycodone or other cross-reacting compounds are reported as positive. False positive and false negative results are possible. Confirmatory testing required for definitive results. Current Interpretive Data was last reviewed 2022. Phencyclidine, ur Not Detected CutOff 25 ng/mL [facility] Comment: Interpretive Data - Phencyclidine: Samples containing greater than 25 ng/mL phencyclidine or other cross-reacting compounds are reported as positive. False positive and false negative results are possible. Confirmatory testing required for definitive results. Current Interpretive Data was last reviewed 2022. Urine Creatinine 167 mg/dL [facility] Comment: Interpretive Data Urine Creatinine: < 10 mg/dL is extremely dilute = or > 10 but < 20 mg/dL is dilute = or > 20 mg/dL is normal Current Interpretive Data was last revised on 2017. Urine 08/15/2024 10:2 6 AM CDT 08/15/2024 10:41 AM CDT Narrative [facility] - 08/15/2024 12:25 PM CDT Drug of Abuse screening is performed by immunoassay for medical purposes only. This is not to be used for Pain Management purposes. Kendrick Hassan MD LAB URINE ORDERABLES Final Result Performing Organization Address City/[facility] Co de Phone Number [facility] Department [place] [address] * Ethanol (08/15/2024 10:26 AM CDT) Pathologist [facility] Ethanol <10 <=10 mg/dL Comment: Interpretive Data Legal limit of intoxication > or = 80 mg/dL Levels > or = 400 mg/dL are potentially TOXIC. Current interpretive data was last revised on 2018. Blood 08/15/2024 10:2 6 AM CDT 08/15/2024 10:36 AM CDT Kendrick Hassan MD LAB BLOOD ORDERABLES Final Result Performing Organization Address [facility] Co de Phone Number [facility] Department [place] [address] * Comprehensive metabolic panel (08/15/2024 10:26 AM CDT) Sodium 144 135 - 145 mmol/L Potassium, pl 3.9 3.3 - 4.9 mmol/L [facility] Chloride 107 97 - 110 mmol/L [facility] CO2 27 22 - 32 mmol/L [facility] Anion gap 10 2 - 15 mmol/L [facility] BUN 9 6 - 25 mg/dL [facility] Creatinine 0.80 0.80 - 1.30 mg/dL [facility] Glucose 98 70 - 199 mg/dL [facility] Comment: Interpretive Data Fasting glucose >/= 126 mg/dl is diagnostic for diabetes. Fasting is defined as no caloric intake for at least 8 hours. Fasting glucose between 100 mg/dl to 125 mg/dl is diagnostic of prediabetes. In a patient with classic symptoms of hyperglycemia or hyperglycemic crisis, a random glucose >/= 200 mg/dl is diagnostic for diabetes. In the absence of unequivocal hyperglycemia, results should be confirmed by repeat testing. The classification and Diagnosis of Diabetes Diabetes Care 2021; 46: S19-S40. Current interpretive data was last revised 2022. Calcium 9.0 8.5 - 10.3 mg/dL [facility] Bilirubin, total 0.4 0.1 - 1.2 mg/dL [facility] Protein, pl 7.1 6.5 - 8.5 g/dL [facility] Albumin 4.3 3.5 - 5.0 g/dL [facility] Alk phos 47 40 - 130 Units/L [facility] ALT 20 7 - 55 Units/L [facility] AST 23 10 - 50 Units/L [facility] Blood 08/15/2024 10:2 6 AM CDT 08/15/2024 10:36 AM CDT us Kendrick Hassan MD LAB BLOOD ORDERABLES Final Result [facility] Department [place] [address] * (ABNORMAL) Differential, auto (08/12/2024 1:27 PM CDT) Neutrophil abs 7.00(H) 1.50 - 6.50 K/cumm Imm gran abs 0.07 0.00 - 0.10 K/cumm [facility] Lymphocyte abs 1.14 0.80 - 3.30 K/cumm [facility] Monocyte abs 0.76 0.20 - 0.80 K/cumm [facility] Eosinophil abs 0.20 0.00 - 0.50 K/cumm [facility] Basophil abs 0.04 0.00 - 0.10 K/cumm [facility] Neutrophil pct 75.9 % [facility] Comment: Interpretive Data Percent cell count reference ranges are not reported, since discordance with absolute values may lead to misinterpretation of CBC data. Current Interpretive Data was last revised on 2017. Imm gran pct 0.8 % [facility] Comment: Interpretive Data Percent cell count reference ranges are not reported, since discordance with absolute values may lead to misinterpretation of CBC data. Current Interpretive Data was last revised on 2017. Lymphocyte pct 12.4 % [facility] Comment: Interpretive Data Percent cell count reference ranges are not reported, since discordance with absolute values may lead to misinterpretation of CBC data. Current Interpretive Data was last revised on 2017. Monocyte pct 8.3 % [facility] Comment: Interpretive Data Percent cell count reference ranges are not reported, since discordance with absolute values may lead to misinterpretation of CBC data. Current Interpretive Data was last revised on 2017. Eosinophil pct 2.2 % [facility] Comment: Interpretive Data Percent cell count reference ranges are not reported, since discordance with absolute values may lead to misinterpretation of CBC data. Current Interpretive Data was last revised on 2017. Basophil pct 0.4 % [facility] Comment: Interpretive Data Percent cell count reference ranges are not reported, since discordance with absolute values may lead to misinterpretation of CBC data. Current Interpretive Data was last revised on 2017. Blood 08/12/2024 1:27 PM CDT 08/12/2024 1:54 PM CDT us Maulik Leary MD LAB BLOOD ORDERABLES Final Result [facility] Department [place] [address] * CBC with auto differential (08/12/2024 1:27 PM CDT) WBC 9.21 3.80 - 9.90 K/cumm Hgb 14.6 13.0 - 17.5 g/dL [facility] Hct 43.3 38.9 - 50.3 % [facility] Plt 179 150 - 400 K/cumm [facility] MPV 11.3 9.1 - 12.3 fL [facility] RBC 4.82 4.30 - 5.80 M/cumm [facility] MCV 89.8 81.3 - 96.4 fL [facility] MCH 30.3 27.1 - 33.3 pg [facility] MCHC 33.7 32.3 - 35.7 g/dL [facility] RDW CV 12.8 11.1 - 14.9 % [facility] RDW SD 41.7 35.7 - 48.1 fL [facility] NRBC abs 0.00 0.00 - 0.01 K/cumm [facility] Blood 08/12/2024 1:27 PM CDT 08/12/2024 1:54 PM CDT Maulik Leary MD LAB BLOOD ORDERABLES Final Result [facility] [place] [address] * (ABNORMAL) Clozapine - Clozaril, serum (08/11/2024 11:02 PM CDT) Clozapine (Clozaril) 275(L) 350 - 600 ng/mL [facility] Norclozapine 65 Not well established ng/mL [facility] Clozapine+Norcloza pine,total 340 Not well established ng/mL [facility] Comment: ADDITIONAL INFORMATION This test was developed and its performance characteristics determined by [facility] in a manner consistent with CLIA requirements. This test has not been cleared or approved by the U.S. Food and Drug Administration. Test Performed by: [facility] Laboratories - [facility] [address] [place] [address] [place] Sample Case: Ssuan Mohr Ph.D.; CLIA# [id number] Blood 08/11/2024 11:0 2 PM CDT 08/11/2024 11:30 PM CDT Narrative [facility] - 08/14/2024 7:36 PM CDT To be drawn BEFORE patient's evening clozapine dose Maulik Leary MD LAB BLOOD ORDERABLES Final Result Performing Organization Address [facility] Co de Phone Number [facility] Department [place] [address] [facility] * Valproic acid level, total (08/11/2024 11:02 PM CDT) [facility] Valproic Acid 75.0 50.0 - 100.0 mcg/mL Comment: Interpretive Data Therapeutic or toxic effects of anticonvulsant drugs may occur at different concentrations in different patients and the correlation between dose and clinical effect must be evaluated individually. Current interpretative data was last revised on 13. Blood 08/11/2024 11:0 2 PM CDT 08/11/2024 11:33 PM CDT [facility] - 08/12/2024 12:02 AM CDT To be taken BEFORE patient's evening depakote dose Maulik Leary MD LAB BLOOD ORDERABLES Final Result Performing Organization Address [facility] de Phone Number [facility] Department [place] [address] * Differential, auto (08/07/2024 8:29 AM CDT) [facility] Neutrophil abs 3.32 1.50 - 6.50 K/cumm Imm gran abs 0.03 0.00 - 0.10 K/cumm [facility] Lymphocyte abs 1.49 0.80 - 3.30 K/cumm [facility] Monocyte abs 0.51 0.20 - 0.80 K/cumm [facility] Eosinophil abs 0.14 0.00 - 0.50 K/cumm [facility] Basophil abs 0.04 0.00 - 0.10 K/cumm [facility] Neutrophil pct 60.2 % [facility] Comment: Interpretive Data Percent cell count reference ranges are not reported, since discordance with absolute values may lead to misinterpretation of CBC data. Current Interpretive Data was last revised on 2017. Imm gran pct 0.5 % [facility] Comment: Interpretive Data Percent cell count reference ranges are not reported, since discordance with absolute values may lead to misinterpretation of CBC data. Current Interpretive Data was last revised on 2017. Lymphocyte pct 26.9 % [facility] Comment: Interpretive Data Percent cell count reference ranges are not reported, since discordance with absolute values may lead to misinterpretation of CBC data. Current Interpretive Data was last revised on 2017. Monocyte pct 9.2 % [facility] Comment: Interpretive Data Percent cell count reference ranges are not reported, since discordance with absolute values may lead to misinterpretation of CBC data. Current Interpretive Data was last revised on 2017. Eosinophil pct 2.5 % [facility] Comment: Interpretive Data Percent cell count reference ranges are not reported, since discordance with absolute values may lead to misinterpretation of CBC data. Current Interpretive Data was last revised on 2017. Basophil pct 0.7 % [facility] Comment: Interpretive Data Percent cell count reference ranges are not reported, since discordance with absolute values may lead to misinterpretation of CBC data. Current Interpretive Data was last revised on 2017. Blood 08/07/2024 8:29 AM CDT 08/07/2024 10:34 AM CDT us Maulik Leary MD LAB BLOOD ORDERABLES Final Result [facility] Department [place] [address] * CBC with auto differential (08/07/2024 8:29 AM CDT) WBC 5.53 3.80 - 9.90 K/cumm Hgb 15.5 13.0 - 17.5 g/dL [facility] Hct 46.0 38.9 - 50.3 % [facility] Plt 188 150 - 400 K/cumm [facility] MPV 11.2 9.1 - 12.3 fL [facility] RBC 5.12 4.30 - 5.80 M/cumm [facility] MCV 89.8 81.3 - 96.4 fL [facility] MCH 30.3 27.1 - 33.3 pg [facility] MCHC 33.7 32.3 - 35.7 g/dL [facility] RDW CV 12.8 11.1 - 14.9 % [facility] RDW SD 41.7 35.7 - 48.1 fL [facility] NRBC abs 0.00 0.00 - 0.01 K/cumm [facility] Blood 08/07/2024 8:29 AM CDT 08/07/2024 10:34 AM CDT Maulik Leary MD LAB BLOOD ORDERABLES Final Result Performing Organization Address [facility] de Phone Number [facility] Department [place] [address] * (ABNORMAL) Valproic acid level, total (08/07/2024 8:29 AM CDT) Valproic Acid 120.0(H) 50.0 - 100.0 mcg/mL Comment: Interpretive Data Therapeutic or toxic effects of anticonvulsant drugs may occur at different concentrations in different patients and the correlation between dose and clinical effect must be evaluated individually. Current interpretative data was last revised on 13. Blood 08/07/2024 8:29 AM CDT 08/07/2024 10:34 AM CDT Narrative [facility] - 08/07/2024 11:11 AM CDT To be taken BEFORE patient received depakote at 9 am Maulik Leary MD LAB BLOOD ORDERABLES Final Result Performing Organization Address City/[facility]/ZIP Co de Phone Number [facility] Department [place] [address] * Differential, auto (07/31/2024 4:36 PM CDT) Neutrophil abs 4.57 1.50 - 6.50 K/cumm Imm gran abs 0.03 0.00 - 0.10 K/cumm [facility] Lymphocyte abs 1.40 0.80 - 3.30 K/cumm [facility] Monocyte abs 0.59 0.20 - 0.80 K/cumm [facility] Eosinophil abs 0.23 0.00 - 0.50 K/cumm [facility] Basophil abs 0.04 0.00 - 0.10 K/cumm [facility] Neutrophil pct 66.6 % [facility] Comment: Interpretive Data Percent cell count reference ranges are not reported, since discordance with absolute values may lead to misinterpretation of CBC data. Current Interpretive Data was last revised on 2017. Imm gran pct 0.4 % [facility] Comment: Interpretive Data Percent cell count reference ranges are not reported, since discordance with absolute values may lead to misinterpretation of CBC data. Current Interpretive Data was last revised on 2017. Lymphocyte pct 20.4 % [facility] Comment: Interpretive Data Percent cell count reference ranges are not reported, since discordance with absolute values may lead to misinterpretation of CBC data. Current Interpretive Data was last revised on 2017. Monocyte pct 8.6 % [facility] Comment: Interpretive Data Percent cell count reference ranges are not reported, since discordance with absolute values may lead to misinterpretation of CBC data. Current Interpretive Data was last revised on 2017. Eosinophil pct 3.4 % [facility] Comment: Interpretive Data Percent cell count reference ranges are not reported, since discordance with absolute values may lead to misinterpretation of CBC data. Current Interpretive Data was last revised on 2017. Basophil pct 0.6 % [facility] Comment: Interpretive Data Percent cell count reference ranges are not reported, since discordance with absolute values may lead to misinterpretation of CBC data. Current Interpretive Data was last revised on 2017. Blood 07/31/2024 4:36 PM CDT 07/31/2024 5:35 PM CDT us Maulik Leary MD LAB BLOOD ORDERABLES Final Result [facility] Department [place] [address] * CBC with auto differential (07/31/2024 4:36 PM CDT) [facility] WBC 6.86 3.80 - 9.90 K/cumm Hgb 13.6 13.0 - 17.5 g/dL [facility] Hct 40.0 38.9 - 50.3 % [facility] Plt 208 150 - 400 K/cumm [facility] MPV 11.2 9.1 - 12.3 fL [facility] RBC 4.44 4.30 - 5.80 M/cumm [facility] MCV 90.1 81.3 - 96.4 fL [facility] MCH 30.6 27.1 - 33.3 pg [facility] MCHC 34.0 32.3 - 35.7 g/dL [facility] RDW CV 12.7 11.1 - 14.9 % [facility] RDW SD 42.0 35.7 - 48.1 fL [facility] NRBC abs 0.00 0.00 - 0.01 K/cumm [facility] Blood 07/31/2024 4:36 PM CDT 07/31/2024 5:35 PM CDT Maulik Leary MD LAB BLOOD ORDERABLES Final Result [facility] Department [place] [address] * Valproic acid level, total (07/28/2024 9:47 PM CDT) [facility] Valproic Acid 83.0 50.0 - 100.0 mcg/mL Comment: Repeated and Verified Interpretive Data Therapeutic or toxic effects of anticonvulsant drugs may occur at different concentrations in different patients and the correlation between dose and clinical effect must be evaluated individually. Current interpretative data was last revised on 13. Blood 07/28/2024 9:47 PM CDT 07/28/2024 10:45 PM CDT Narrative [facility] - 07/28/2024 11:49 PM CDT Please take this level BEFORE patient gets his evening depakote dose us Maulik Leary MD LAB BLOOD ORDERABLES Final Result Performing Organization Address [facility] de Phone Number [facility] Department [place] [address] * Urinalysis reflex to microscopic (07/20/2024 4:34 AM CDT) Color, ur Straw Yellow Clarity, ur Clear Clear [facility] Specific gravity, ur 1.016 1.003 - 1.030 [facility] pH, urine 6.5 [facility] Comment: Interpretive Data U rine pH is affected by diet, medications, systemic acid-base disturbances, and renal tubular function. pH may affect urinary stone formation. For example, urine pH below 6.0 may help reduce the tendency for calcium phosphate stones and pH greater than 6.0 may reduce the tendency for uric acid stone formation. Source: [facility] Current Interpretive Data was last revised on 2017 Protein, ur ql Negative Negative [facility] Glucose, ur ql Negative Negative [facility] Ketones, ur Negative Negative [facility] Bilirubin, ur Negative Negative [facility] Blood, ur Negative Negative [facility] Urobilinogen, ur <2.0 <2.0 mg/dL [facility] Nitrite, ur Negative Negative [facility] Leukocyte esterase, ur Negative Negative [facility] UA reflex comment Reflex conditions for microscopic UA not met. [facility] Urine 07/20/2024 4:34 AM CDT 07/20/2024 4:41 AM CDT us Norma Ly NP LAB URINE ORDERABLES Nelida l Result Performing Organization Address [facility]/ZIP Co de Phone Number [facility] Department [place] [address] * (ABNORMAL) Drugs of Abuse Screen, Urine without Confirmation (07/20/2024 4:34 AM CDT) [facility] Amphetamine, ur Not Detected CutOff 500ng/mL Comment: Interpretive Data - Amphetamines: Samples containing greater than 500 ng/mL d-methamphetamine or other cross-reacting amphetamine compounds are reported as positive. Amphetamine immunoassays are subject to significant false positive rates due to cross-reactivity of non-amphetamine drugs. Confirmatory testing required for definitive results. Current Interpretive Data was last reviewed 2022. Barbiturates, ur Not Detected CutOff 200ng/mL [facility] Comment: Interpretive Data - Barbiturates: Samples containing greater than 200 ng/mL secobarbital or other cross-reacting barbiturate compounds are reported as positive. False positive and false negative results are possible. Confirmatory testing required for definitive results. Current Interpretive Data was last reviewed 2022. Benzodiazepines, ur Not Detected CutOff 100ng/mL [facility] Comment: Interpretive Data - Benzodiazepines: Samples containing greater than 100 ng/mL nordiazepam or other cross-reacting compounds are reported as positive. False positive and false negative results are possible. Confirmatory testing required for definitive results. Current Interpretive Data was last reviewed 2022. Cannabinoids, ur Screen Positive, presumptive (A) CutOff 50 ng/mL [facility] Comment: Interpretive Data - Cannabinoids: Samples containing greater than 50 ng/mL delta-9 THC -COOH or other cross- reacting compounds are reported as positive. False positive and false negative results are possible. Confirmatory testing required for definitive results. Current Interpretive Data was last reviewed 2022. Cocaine, ur Not Detected CutOff 150ng/mL [facility] Comment: Interpretive Data - Cocaine: Samples containing greater than 150 ng/mL benzoylecgonine or other cross- reacting compounds are reported as positive. False positive and false negative results are possible. Confirmatory testing required for definitive results. Current Interpretive Data was last reviewed 2022. Fentanyl, Ur Not Detected CutOff 5 ng/mL [facility] Comment: Interpretive Data - Fentanyl: Samples containing greater than 5 ng/mL norfentanyl, fentanyl, or other cross-reacting fentanyl compounds are reported as positive. False positive and false negative results are possible. Confirmatory testing required for definitive results. Current Interpretive Data was last reviewed 2023. Methadone, ur Not Detected CutOff 300ng/mL [facility] Comment: Interpretive Data - Methadone: Samples containing greater than 300 ng/mL d,l-methadone or other cross-reacting compounds are reported as positive. False positive and false negative results are possible. Confirmatory testing required for definitive results. Current Interpretive Data was last reviewed 2022. Opiates, ur Not Detected CutOff 300ng/mL [facility] Comment: Interpretive Data - Opiates: Samples containing greater than 300 ng/mL morphine or other cross-reacting compounds are reported as positive. False positive and false negative results are possible. Confirmatory testing required for definitive results. Current Interpretive Data was last reviewed 2022. Oxycodone, ur Not Detected CutOff 100ng/mL [facility] Comment: Interpretive Data - Oxycodone: Samples containing greater than 100 ng/mL oxycodone or other cross-reacting compounds are reported as positive. False positive and false negative results are possible. Confirmatory testing required for definitive results. Current Interpretive Data was last reviewed 2022. Phencyclidine, ur Not Detected CutOff 25 ng/mL [facility] Comment: Interpretive Data - Phencyclidine: Samples containing greater than 25 ng/mL phencyclidine or other cross-reacting compounds are reported as positive. False positive and false negative results are possible. Confirmatory testing required for definitive results. Current Interpretive Data was last reviewed 2022. Urine Creatinine 146 mg/dL [facility] Comment: Interpretive Data Urine Creatinine: < 10 mg/dL is extremely dilute = or > 10 but < 20 mg/dL is dilute = or > 20 mg/dL is normal Current Interpretive Data was last revised on 2017. Urine 07/20/2024 4:34 AM CDT 07/20/2024 4:41 AM CDT Narrative [facility] - 07/20/2024 6:03 AM CDT Drug of Abuse screening is performed by immunoassay for medical purposes only. This is not to be used for Pain Management purposes. Norma Ly NP LAB URINE ORDERABLES Nelida walter Result [facility] [place] [address] * NE CRITICAL CARE ILL/INJURED PATIENT INIT 30-74 MIN (07/19/2024 9:44 PM CDT) Narrative Norma Ly NP - 07/19/2024 9:44 PM CDT Norma Ly NP 07/19/2024 9:44 PM Critical Care Performed by: Norma Ly NP Authorized by: Guero Tellez MD Critical care provider statement: As reflected in the history, physical exam, orders, notes, and/or MDM, I was personally present while the patient was critically ill and provided critical care services for 30 minutes, excluding time involved in separately billable procedures. Critical care was necessary to treat or prevent imminent or life-threatening deterioration of the following condition(s): acute psychotic episode Critical care was time spent by me providing the following: psychological evaluation with medical clearance I provided emergent necessary critical care medicine services to this patient. I ordered and reviewed test results and/or imaging studies. I spent time discussing the management of this critically ill patient with consultants and the medical staff. I spent time discussing the management and therapeutic options for this critically ill patient with the patient themselves or with the appropriate designated surrogate decision-maker. I spent time documenting in the medical record. us Guero Tellez MD IN CLINIC/BEDSIDE [facility] Final Result * eGFR (07/19/2024 8:38 PM CDT) eGFR >90 >=60 mL/min/1. 73 m2 Comment: Interpretive Data Reference Interval Normal >/= 90 mL/min/1.73m2 Mildly decreased* 60 - 89 mL/min/1.73m2 Mildly to moderately decreased 45 - 59 mL/min/1.73m2 Moderately to severely decreased 30 - 44 mL/min/1.73m2 Severely decreased 15 - 29 mL/min/1.73m2 Kidney Failure < 15 mL/min/1.73m2 *Relative to young adult level Estimated glomerular filtration rate is determined by the 2020 CKD-EPI equation recommended by the National Kidney [employer] (A Unifying Approach to GFR Estimation: Recommendations of the NKF-ASK Task Force on Reassessing the Inclusion of Race in Diagnosing Kidney Disease, MARIA DE JESUSSPatricia 2020). The CKD-EPI equation should not be used for patients with unstable renal function and has not been validated in children and those over 70. Current interpretive data was last reviewed 2021. Blood 07/19/2024 8:38 PM CDT 07/19/2024 8:50 PM CDT us Norma Ly NP LAB BLOOD ORDERABLES Nelida saba Result [facility] [place] [address] * (ABNORMAL) Differential, auto (07/19/2024 8:38 PM CDT) Neutrophil abs 8.39(H) 1.50 - 6.50 K/cumm Imm gran abs 0.04 0.00 - 0.10 K/cumm [facility] Lymphocyte abs 1.79 0.80 - 3.30 K/cumm [facility] Monocyte abs 0.93(H) 0.20 - 0.80 K/cumm [facility] Eosinophil abs 0.10 0.00 - 0.50 K/cumm [facility] Basophil abs 0.08 0.00 - 0.10 K/cumm [facility] Neutrophil pct 74.0 % [facility] Comment: Interpretive Data Percent cell count reference ranges are not reported, since discordance with absolute values may lead to misinterpretation of CBC data. Current Interpretive Data was last revised on 2017. Imm gran pct 0.4 % [facility] Comment: Interpretive Data Percent cell count reference ranges are not reported, since discordance with absolute values may lead to misinterpretation of CBC data. Current Interpretive Data was last revised on 2017. Lymphocyte pct 15.8 % [facility] Comment: Interpretive Data Percent cell count reference ranges are not reported, since discordance with absolute values may lead to misinterpretation of CBC data. Current Interpretive Data was last revised on 2017. Monocyte pct 8.2 % [facility] Comment: Interpretive Data Percent cell count reference ranges are not reported, since discordance with absolute values may lead to misinterpretation of CBC data. Current Interpretive Data was last revised on 2017. Eosinophil pct 0.9 % [facility] Comment: Interpretive Data Percent cell count reference ranges are not reported, since discordance with absolute values may lead to misinterpretation of CBC data. Current Interpretive Data was last revised on 2017. Basophil pct 0.7 % [facility] Comment: Interpretive Data Percent cell count reference ranges are not reported, since discordance with absolute values may lead to misinterpretation of CBC data. Current Interpretive Data was last revised on 2017. Blood 07/19/2024 8:38 PM CDT 07/19/2024 8:50 PM CDT Norma Ly NP LAB BLOOD ORDERABLES Nelida walter Result [facility] [place] [address] * (ABNORMAL) CBC with auto differential (07/19/2024 8:38 PM CDT) WBC 11.33(H) 3.80 - 9.90 K/cumm Hgb 13.9 13.0 - 17.5 g/dL [facility] Hct 40.9 38.9 - 50.3 % [facility] Plt 251 150 - 400 K/cumm [facility] MPV 11.4 9.1 - 12.3 fL [facility] RBC 4.66 4.30 - 5.80 M/cumm [facility] MCV 87.8 81.3 - 96.4 fL [facility] MCH 29.8 27.1 - 33.3 pg [facility] MCHC 34.0 32.3 - 35.7 g/dL [facility] RDW CV 13.0 11.1 - 14.9 % [facility] RDW SD 41.4 35.7 - 48.1 fL [facility] NRBC abs 0.00 0.00 - 0.01 K/cumm [facility] Blood Venous blood specimen / Unknown 07/19/2024 8:38 PM CDT 07/19/2024 8:50 PM CDT Norma Ly NP LAB BLOOD ORDERABLES Nelida l Result Performing Organization Address [facility] de Phone Number [facility] [place] [address] * Ethanol (07/19/2024 8:38 PM CDT) Pathologist [facility] Ethanol <10 <=10 mg/dL Comment: Interpretive Data Legal limit of intoxication > or = 80 mg/dL Levels > or = 400 mg/dL are potentially TOXIC. Current interpretive data was last revised on 2018. Blood 07/19/2024 8:38 PM CDT 07/19/2024 8:50 PM CDT Norma Ly NP LAB BLOOD ORDERABLES Nelida l Result Performing Organization Address [facility] [place] [address] * Comprehensive metabolic panel (07/19/2024 8:38 PM CDT) [facility] Sodium 140 135 - 145 mmol/L Potassium, pl 3.9 3.3 - 4.9 mmol/L [facility] Chloride 103 97 - 110 mmol/L [facility] CO2 24 22 - 32 mmol/L [facility] Anion gap 13 2 - 15 mmol/L [facility] BUN 9 6 - 25 mg/dL [facility] Creatinine 0.89 0.80 - 1.30 mg/dL [facility] Glucose 90 70 - 199 mg/dL [facility] Comment: Interpretive Data Fasting glucose >/= 126 mg/dl is diagnostic for diabetes. Fasting is defined as no caloric intake for at least 8 hours. Fasting glucose between 100 mg/dl to 125 mg/dl is diagnostic of prediabetes. In a patient with classic symptoms of hyperglycemia or hyperglycemic crisis, a random glucose >/= 200 mg/dl is diagnostic for diabetes. In the absence of unequivocal hyperglycemia, results should be confirmed by repeat testing. The classification and Diagnosis of Diabetes Diabetes Care 2021; 46: S19-S40. Current interpretive data was last revised 2022. Calcium 9.7 8.5 - 10.3 mg/dL [facility] Bilirubin, total 1.0 0.1 - 1.2 mg/dL [facility] Protein, pl 7.6 6.5 - 8.5 g/dL [facility] Albumin 4.6 3.5 - 5.0 g/dL [facility] Alk phos 67 40 - 130 Units/L [facility] ALT 23 7 - 55 Units/L [facility] AST 37 10 - 50 Units/L [facility] Blood 07/19/2024 8:38 PM CDT 07/19/2024 8:50 PM CDT Norma Ly NP LAB BLOOD ORDERABLES Nelida walter Result [facility] [place] [address] * NE CRITICAL CARE ILL/INJURED PATIENT INIT 30-74 MIN (07/16/2024 5:12 AM CDT) Narrative Rosalio Balbuena MD - 07/16/2024 5:12 AM CDT Rosalio Balbuena MD 07/16/2024 5:13 AM Critical Care Performed by: Rosalio Balbuena MD Authorized by: Rosalio Balbuena MD Critical care provider statement: As reflected in the history, physical exam, orders, notes, and/or MDM, I was personally present while the patient was critically ill and provided critical care services for 30 minutes, excluding time involved in separately billable procedures. Critical care was necessary to treat or prevent imminent or life-threatening deterioration of the following condition(s): severe agitation Critical care was time spent by me providing the following: continuous telemetry, continuous pulse oximetry, interpretation of bedside monitors, imaging, and arterial/venous lab draws and serial bedside patient exams sedatives and psychotropic medications I provided emergent necessary critical care medicine services to this patient. I ordered and reviewed test results and/or imaging studies. I spent time discussing the management of this critically ill patient with consultants and the medical staff. I spent time discussing the management and therapeutic options for this critically ill patient with the patient themselves or with the appropriate designated surrogate decision-maker. I spent time documenting in the medical record. Rosalio Balbuena MD IN CLINIC/BEDSID E ORDERABLES Final Result * Urinalysis reflex to microscopic and culture Urine (07/16/2024 2:26 AM CDT) Color, ur Straw Yellow Clarity, ur Clear Clear [facility] Specific gravity, ur 1.015 1.003 - 1.030 [facility] pH, urine 6.0 [facility] Comment: Interpretive Data U rine pH is affected by diet, medications, systemic acid-base disturbances, and renal tubular function. pH may affect urinary stone formation. For example, urine pH below 6.0 may help reduce the tendency for calcium phosphate stones and pH greater than 6.0 may reduce the tendency for uric acid stone formation. Source: [facility] Current Interpretive Data was last revised on 2017 Protein, ur ql Trace Negative [facility] Glucose, ur ql Negative Negative [facility] Ketones, ur Negative Negative [facility] Bilirubin, ur Negative Negative [facility] Blood, ur Negative Negative [facility] Urobilinogen, ur <2.0 <2.0 mg/dL [facility] Nitrite, ur Negative Negative [facility] Leukocyte esterase, ur Negative Negative [facility] UA reflex comment Reflex conditions for microscopic UA and culture not met. [facility] Urine 07/16/2024 2:26 AM CDT 07/16/2024 2:35 AM CDT Rosalio Balbuena MD LAB MICROBIOLOGY - GENERAL ORDERABLES Final Result [facility] [place] [address] * (ABNORMAL) Drugs of Abuse Screen, Urine without Confirmation (07/16/2024 2:26 AM CDT) [facility] Amphetamine, ur Not Detected CutOff 500ng/mL Comment: Interpretive Data - Amphetamines: Samples containing greater than 500 ng/mL d-methamphetamine or other cross-reacting amphetamine compounds are reported as positive. Amphetamine immunoassays are subject to significant false positive rates due to cross-reactivity of non-amphetamine drugs. Confirmatory testing required for definitive results. Current Interpretive Data was last reviewed 2022. Barbiturates, ur Not Detected CutOff 200ng/mL [facility] Comment: Interpretive Data - Barbiturates: Samples containing greater than 200 ng/mL secobarbital or other cross-reacting barbiturate compounds are reported as positive. False positive and false negative results are possible. Confirmatory testing required for definitive results. Current Interpretive Data was last reviewed 2022. Benzodiazepines, ur Not Detected CutOff 100ng/mL [facility] Comment: Interpretive Data - Benzodiazepines: Samples containing greater than 100 ng/mL nordiazepam or other cross-reacting compounds are reported as positive. False positive and false negative results are possible. Confirmatory testing required for definitive results. Current Interpretive Data was last reviewed 2022. Cannabinoids, ur Screen Positive, presumptive (A) CutOff 50 ng/mL [facility] Comment: Interpretive Data - Cannabinoids: Samples containing greater than 50 ng/mL delta-9 THC -COOH or other cross- reacting compounds are reported as positive. False positive and false negative results are possible. Confirmatory testing required for definitive results. Current Interpretive Data was last reviewed 2022. Cocaine, ur Not Detected CutOff 150ng/mL [facility] Comment: Interpretive Data - Cocaine: Samples containing greater than 150 ng/mL benzoylecgonine or other cross- reacting compounds are reported as positive. False positive and false negative results are possible. Confirmatory testing required for definitive results. Current Interpretive Data was last reviewed 2022. Fentanyl, Ur Not Detected CutOff 5 ng/mL [facility] Comment: Interpretive Data - Fentanyl: Samples containing greater than 5 ng/mL norfentanyl, fentanyl, or other cross-reacting fentanyl compounds are reported as positive. False positive and false negative results are possible. Confirmatory testing required for definitive results. Current Interpretive Data was last reviewed 2023. Methadone, ur Not Detected CutOff 300ng/mL [facility] Comment: Interpretive Data - Methadone: Samples containing greater than 300 ng/mL d,l-methadone or other cross-reacting compounds are reported as positive. False positive and false negative results are possible. Confirmatory testing required for definitive results. Current Interpretive Data was last reviewed 2022. Opiates, ur Not Detected CutOff 300ng/mL [facility] Comment: Interpretive Data - Opiates: Samples containing greater than 300 ng/mL morphine or other cross-reacting compounds are reported as positive. False positive and false negative results are possible. Confirmatory testing required for definitive results. Current Interpretive Data was last reviewed 2022. Oxycodone, ur Not Detected CutOff 100ng/mL [facility] Comment: Interpretive Data - Oxycodone: Samples containing greater than 100 ng/mL oxycodone or other cross-reacting compounds are reported as positive. False positive and false negative results are possible. Confirmatory testing required for definitive results. Current Interpretive Data was last reviewed 2022. Phencyclidine, ur Not Detected CutOff 25 ng/mL [facility] Comment: Interpretive Data - Phencyclidine: Samples containing greater than 25 ng/mL phencyclidine or other cross-reacting compounds are reported as positive. False positive and false negative results are possible. Confirmatory testing required for definitive results. Current Interpretive Data was last reviewed 2022. Urine Creatinine 136 mg/dL [facility] Comment: Interpretive Data Urine Creatinine: < 10 mg/dL is extremely dilute = or > 10 but < 20 mg/dL is dilute = or > 20 mg/dL is normal Current Interpretive Data was last revised on 2017. Urine 07/16/2024 2:26 AM CDT 07/16/2024 2:41 AM CDT Narrative [facility] - 07/16/2024 3:13 AM CDT Drug of Abuse screening is performed by immunoassay for medical purposes only. This is not to be used for Pain Management purposes. Rosalio Balbuena MD LAB URINE ORDERA BLES Final Result [facility] Department [place] [address] * POCT Rapid HIV Antibody Community Screening-Yasmin Eligible (07/16/2024 2:07 AM CDT) [facility] Rapid HIV, POC Negative Negative Lot Number [id number] QC Control Line Acceptable Blood 07/16/2024 2:07 AM CDT Rosalio Balbuena MD POINT OF CARE TE ST ORDERABLES Final Result * eGFR (07/16/2024 12:46 AM CDT) [facility] eGFR >90 >=60 mL/min/1. 73 m2 Comment: Interpretive Data Reference Interval Normal >/= 90 mL/min/1.73m2 Mildly decreased* 60 - 89 mL/min/1.73m2 Mildly to moderately decreased 45 - 59 mL/min/1.73m2 Moderately to severely decreased 30 - 44 mL/min/1.73m2 Severely decreased 15 - 29 mL/min/1.73m2 Kidney Failure < 15 mL/min/1.73m2 *Relative to young adult level Estimated glomerular filtration rate is determined by the 2020 CKD-EPI equation recommended by the National Kidney [employer] (A Unifying Approach to GFR Estimation: Recommendations of the NKF-ASK Task Force on Reassessing the Inclusion of Race in Diagnosing Kidney Disease, JASN 2020). The CKD-EPI equation should not be used for patients with unstable renal function and has not been validated in children and those over 70. Current interpretive data was last reviewed 2021. Blood 07/16/2024 12:4 6 AM CDT 07/16/2024 12:55 AM CDT Rosalio Balbuena MD LAB BLOOD ORDERA BLES Final Result [facility] Department [place] [address] * (ABNORMAL) Differential, auto (07/16/2024 12:46 AM CDT) Neutrophil abs 9.35(H) 1.50 - 6.50 K/cumm Imm gran abs 0.08 0.00 - 0.10 K/cumm [facility] Lymphocyte abs 1.74 0.80 - 3.30 K/cumm [facility] Monocyte abs 1.12(H) 0.20 - 0.80 K/cumm [facility] Eosinophil abs 0.28 0.00 - 0.50 K/cumm [facility] Basophil abs 0.05 0.00 - 0.10 K/cumm [facility] Neutrophil pct 74.1 % [facility] Comment: Interpretive Data Percent cell count reference ranges are not reported, since discordance with absolute values may lead to misinterpretation of CBC data. Current Interpretive Data was last revised on 2017. Imm gran pct 0.6 % [facility] Comment: Interpretive Data Percent cell count reference ranges are not reported, since discordance with absolute values may lead to misinterpretation of CBC data. Current Interpretive Data was last revised on 2017. Lymphocyte pct 13.8 % [facility] Comment: Interpretive Data Percent cell count reference ranges are not reported, since discordance with absolute values may lead to misinterpretation of CBC data. Current Interpretive Data was last revised on 2017. Monocyte pct 8.9 % [facility] Comment: Interpretive Data Percent cell count reference ranges are not reported, since discordance with absolute values may lead to misinterpretation of CBC data. Current Interpretive Data was last revised on 2017. Eosinophil pct 2.2 % [facility] Comment: Interpretive Data Percent cell count reference ranges are not reported, since discordance with absolute values may lead to misinterpretation of CBC data. Current Interpretive Data was last revised on 2017. Basophil pct 0.4 % [facility] Comment: Interpretive Data Percent cell count reference ranges are not reported, since discordance with absolute values may lead to misinterpretation of CBC data. Current Interpretive Data was last revised on 2017. Blood 07/16/2024 12:4 6 AM CDT 07/16/2024 12:55 AM CDT Rosalio Balbuena MD LAB BLOOD ORDERA BLES Final Result [facility] Department [place] [address] * Thyroid Function [place] (07/16/2024 12:46 AM CDT) Pathologist [facility] TSH 1.01 0.30 - 4.20 mcIUnit/mL Blood 07/16/2024 12:4 6 AM CDT 07/16/2024 12:55 AM CDT Rosalio Balbuena MD LAB BLOOD ORDERA BLES Final Result Performing Organization Address City/[facility] Co de Phone Number [facility] Department [place] [address] * (ABNORMAL) CBC with auto differential (07/16/2024 12:46 AM CDT) [facility] WBC 12.62(H) 3.80 - 9.90 K/cumm Hgb 13.9 13.0 - 17.5 g/dL [facility] Hct 41.1 38.9 - 50.3 % [facility] Plt 216 150 - 400 K/cumm [facility] MPV 11.1 9.1 - 12.3 fL [facility] RBC 4.56 4.30 - 5.80 M/cumm [facility] MCV 90.1 81.3 - 96.4 fL [facility] MCH 30.5 27.1 - 33.3 pg [facility] MCHC 33.8 32.3 - 35.7 g/dL [facility] RDW CV 13.2 11.1 - 14.9 % [facility] RDW SD 43.3 35.7 - 48.1 fL [facility] NRBC abs 0.00 0.00 - 0.01 K/cumm [facility] Blood Venous blood specimen / Unknown 07/16/2024 12:46 AM CDT 07/16/2024 12:55 AM CDT Rosalio Balbuena MD LAB BLOOD ORDERA BLES Final Result Performing Organization Address [facility] Co de Phone Number [facility] Department [place] [address] * Ethanol (07/16/2024 12:46 AM CDT) Ethanol <10 <=10 mg/dL Comment: Interpretive Data Legal limit of intoxication > or = 80 mg/dL Levels > or = 400 mg/dL are potentially TOXIC. Current interpretive data was last revised on 2018. Blood 07/16/2024 12:4 6 AM CDT 07/16/2024 12:55 AM CDT Rosalio Balbuena MD LAB BLOOD ORDERA BLES Final Result Performing Organization Address [facility] Co de Phone Number [facility] [place] [address] * (ABNORMAL) Valproic acid level, total (07/16/2024 12:46 AM CDT) Valproic Acid <15.0(L) 50.0 - 100.0 mcg/mL Comment: Reviewed Interpretive Data Therapeutic or toxic effects of anticonvulsant drugs may occur at different concentrations in different patients and the correlation between dose and clinical effect must be evaluated individually. Current interpretative data was last revised on 13. Blood 07/16/2024 12:4 6 AM CDT 07/16/2024 12:55 AM CDT Rosalio Balbuena MD LAB BLOOD ORDERA BLES Final Result Performing Organization Address [facility] Co de Phone Number ALEKSANDAR [facility] Department [place] [address] * Comprehensive metabolic panel (07/16/2024 12:46 AM CDT) Sodium 142 135 - 145 mmol/L Potassium, pl 4.5 3.3 - 4.9 mmol/L [facility] Chloride 106 97 - 110 mmol/L [facility] CO2 27 22 - 32 mmol/L [facility] Anion gap 9 2 - 15 mmol/L [facility] BUN 9 6 - 25 mg/dL [facility] Creatinine 1.01 0.80 - 1.30 mg/dL [facility] Glucose 117 70 - 199 mg/dL [facility] Comment: Interpretive Data Fasting glucose >/= 126 mg/dl is diagnostic for diabetes. Fasting is defined as no caloric intake for at least 8 hours. Fasting glucose between 100 mg/dl to 125 mg/dl is diagnostic of prediabetes. In a patient with classic symptoms of hyperglycemia or hyperglycemic crisis, a random glucose >/= 200 mg/dl is diagnostic for diabetes. In the absence of unequivocal hyperglycemia, results should be confirmed by repeat testing. The classification and Diagnosis of Diabetes Diabetes Care 2021; 46: S19-S40. Current interpretive data was last revised 2022. Calcium 9.7 8.5 - 10.3 mg/dL [facility] Bilirubin, total 0.5 0.1 - 1.2 mg/dL [facility] Protein, pl 7.6 6.5 - 8.5 g/dL [facility] Albumin 4.5 3.5 - 5.0 g/dL [facility] Alk phos 65 40 - 130 Units/L [facility] ALT 21 7 - 55 Units/L [facility] AST 28 10 - 50 Units/L [facility] Blood 07/16/2024 12:4 6 AM CDT 07/16/2024 12:55 AM CDT us Rosalio Balbuena MD LAB BLOOD ORDERA BLES Final Result [facility] Department [place] [address] * XR Hand Right 3 or More Views (07/11/2024 12:06 AM CDT) Anatomical Region Laterality Modality Upper Extremities, Hand Right Computed Radiography 07/11/2024 12:4 5 AM CDT Narrative 07/11/2024 12:47 AM CDT EXAM DESCRIPTION: XR HAND RIGHT 3 OR MORE VIEWS REASON FOR STUDY: injury Pt Punched a Door Tonight in ER Room. Pt is not Responsive and can't cooperate for Images. Best Obtainable Images. C/o needing a psychiatric evaluation. Pt is schizophrenic and has been off his meds for a while. When asked what is going on today he states Do you want me to be honest? I'm just trying to find the love of my life, but you guys aren't black. Pt making nonsensical statements. TECHNIQUE: 4 radiographic view(s) of the right hand . COMPARISON: None FINDINGS: BONES/JOINTS: There is no acute fracture, malalignment or osseous abnormality. The joint spaces are normal. SOFT TISSUES: Mild soft tissue swelling about the right hand. No radiopaque foreign body. IMPRESSION: No acute osseous abnormality. THIS IS AN ELECTRONICALLY VERIFIED FINAL REPORT 07/11/2024 12:47 AM - Electronically signed by Bebeto Rosario M.D. KT: TALYA Report ID: [id number] Reading Location: [id number] Procedure Note Bebeto Rosario MD - 07/11/2024 EXAM DESCRIPTION: XR HAND RIGHT 3 OR MORE VIEWS REASON FOR STUDY: injury Pt Punched a Door Tonight in ER Room. Pt is not Responsive and can't cooperate for Images. Best Obtainable Images. C/o needing apsychiatric evaluation. Pt is schizophrenic and has been off his meds for a while. When asked what is going on today he states Do you want me to be honest? I'm just trying to find the love of my life, but you guys aren't black. Pt making nonsensical statements. TECHNIQUE: 4 radiographic view(s) of the right hand . COMPARISON: None FINDINGS: BONES/JOINTS: There is no acute fracture, malalignment or osseousabnormality. The joint spaces are normal. SOFT TISSUES: Mild soft tissue swelling about the right hand. Noradiopaque foreign body. IMPRESSION: No acute osseous abnormality. THIS IS AN ELECTRONICALLY VERIFIED FINAL REPORT 07/11/2024 12:47 AM - Electronically signed by Bebeto Rosario M.D. KT: KT Report ID: [id number] Reading Location: [place] [address] Eduin Ruth MD IMG XR PROCEDURES Final Result * Urinalysis reflex to microscopic and culture Urine (07/10/2024 4:25 PM CDT) Color, ur Straw Yellow Clarity, ur Clear Clear [facility] ([place]) Specific gravity, ur 1.004 1.003 - 1.030 [facility] ([place] pH, urine 7.0 [facility] ([place] Comment: Interpretive Data U rine pH is affected by diet, medications, systemic acid-base disturbances, and renal tubular function. pH may affect urinary stone formation. For example, urine pH below 6.0 may help reduce the tendency for calcium phosphate stones and pH greater than 6.0 may reduce the tendency for uric acid stone formation. Source: [facility] Current Interpretive Data was last revised on 2017 Protein, ur ql Negative Negative [facility] ([place]) Glucose, ur ql Negative Negative [facility] ([place]) Ketones, ur Negative Negative [facility] Bilirubin, ur Negative Negative [facility] ([place]) Blood, ur Negative Negative [facility]) Urobilinogen, ur <2.0 <2.0 mg/dL [facility] ([place]) Nitrite, ur Negative Negative [facility]) Leukocyte esterase, ur Negative Negative [facility] ([place]) UA reflex comment Reflex conditions for microscopic UA and culture not met. [facility] Urine 07/10/2024 4:25 PM CDT 07/10/2024 4:28 PM CDT Manuela Suarez MD LAB MICROBIOLOGY - GENERA L ORDERABLES Final Result [facility] ([place]) 1 [facility] Department [place] [address] * (ABNORMAL) Drugs of Abuse Screen, Urine without Confirmation (07/10/2024 4:25 PM CDT) Pathologist [facility] Amphetamine, ur Not Detected CutOff 500ng/mL Comment: Interpretive Data - Amphetamines: Samples containing greater than 500 ng/mL d-methamphetamine or other cross-reacting amphetamine compounds are reported as positive. Amphetamine immunoassays are subject to significant false positive rates due to cross-reactivity of non-amphetamine drugs. Confirmatory testing required for definitive results. Current Interpretive Data was last reviewed 2022. Barbiturates, ur Not Detected CutOff 200ng/mL [facility] ([place] Comment: Interpretive Data - Barbiturates: Samples containing greater than 200 ng/mL secobarbital or other cross-reacting barbiturate compounds are reported as positive. False positive and false negative results are possible. Confirmatory testing required for definitive results. Current Interpretive Data was last reviewed 2022. Benzodiazepines, ur Not Detected CutOff 100ng/mL [facility] ([place] Comment: Interpretive Data - Benzodiazepines: Samples containing greater than 100 ng/mL nordiazepam or other cross-reacting compounds are reported as positive. False positive and false negative results are possible. Confirmatory testing required for definitive results. Current Interpretive Data was last reviewed 2022. Cannabinoids, ur Screen Positive, presumptive (A) CutOff 50 ng/mL [facility] ([place] Comment: Interpretive Data - Cannabinoids: Samples containing greater than 50 ng/mL delta-9 THC -COOH or other cross- reacting compounds are reported as positive. False positive and false negative results are possible. Confirmatory testing required for definitive results. Current Interpretive Data was last reviewed 2022. Cocaine, ur Not Detected CutOff 150ng/mL [facility] ([place] Comment: Interpretive Data - Cocaine: Samples containing greater than 150 ng/mL benzoylecgonine or other cross- reacting compounds are reported as positive. False positive and false negative results are possible. Confirmatory testing required for definitive results. Current Interpretive Data was last reviewed 2022. Fentanyl, Ur Not Detected CutOff 5 ng/mL [facility] ([place] Comment: Interpretive Data - Fentanyl: Samples containing greater than 5 ng/mL norfentanyl, fentanyl, or other cross-reacting fentanyl compounds are reported as positive. False positive and false negative results are possible. Confirmatory testing required for definitive results. Current Interpretive Data was last reviewed 2023. Methadone, ur Not Detected CutOff 300ng/mL [facility] ([place]) Comment: Interpretive Data - Methadone: Samples containing greater than 300 ng/mL d,l-methadone or other cross-reacting compounds are reported as positive. False positive and false negative results are possible. Confirmatory testing required for definitive results. Current Interpretive Data was last reviewed 2022. Opiates, ur Not Detected CutOff 300ng/mL [facility] ([place] Comment: Interpretive Data - Opiates: Samples containing greater than 300 ng/mL morphine or other cross-reacting compounds are reported as positive. False positive and false negative results are possible. Confirmatory testing required for definitive results. Current Interpretive Data was last reviewed 2022. Oxycodone, ur Not Detected CutOff 100ng/mL [facility] ([place]) Comment: Interpretive Data - Oxycodone: Samples containing greater than 100 ng/mL oxycodone or other cross-reacting compounds are reported as positive. False positive and false negative results are possible. Confirmatory testing required for definitive results. Current Interpretive Data was last reviewed 2022. Phencyclidine, ur Not Detected CutOff 25 ng/mL [facility] ([place]) Comment: Interpretive Data - Phencyclidine: Samples containing greater than 25 ng/mL phencyclidine or other cross-reacting compounds are reported as positive. False positive and false negative results are possible. Confirmatory testing required for definitive results. Current Interpretive Data was last reviewed 2022. Urine Creatinine 28 mg/dL [facility] ([place]) Comment: Interpretive Data Urine Creatinine: < 10 mg/dL is extremely dilute = or > 10 but < 20 mg/dL is dilute = or > 20 mg/dL is normal Current Interpretive Data was last revised on 2017. Urine 07/10/2024 4:25 PM CDT 07/10/2024 4:28 PM CDT us Mnauela Suarez MD LAB URINE ORDERABLES Nelida l Result [facility] ([place]) 1 [facility] [place] [address] * COVID-19 Coronavirus RNA Nasopharyngeal (07/10/2024 2:49 PM CDT) COVID-19 RNA Negative Negative Nasopharyngeal 07/10/2024 2: 49 PM CDT 07/10/2024 2:52 PM CDT Narrative [facility] ([place]) - 07/10/2024 3:26 PM CDT Is the patient experiencing any symptoms consistent with COVID (eg. Fever, cough, shortness of breath)?->No What is the reason for testing?->Screening prior to Behavioral health admission Interpretive data: Testing performed by [facility]. This test is performed using the eCollect Xpert Xpress CoV-2 plus assay. This is a real-time RT-PCR test intended for the qualitative detection of nucleic acid from the SARS-CoV-2. This assay has been cleared by the [place] Food and Drug administration. The performance characteristics have been verified by [facility]. Results must be considered in the clinical context, and a negative result does not rule out infection. Interpretive data last revised 2023. Interpretive data: Testing performed by [facility]. This test is performed using the eCollect Xpert Xpress CoV-2 plus assay. This is a real-time RT-PCR test intended for the qualitative detection of nucleic acid from the SARS-CoV-2. This assay has been cleared by the [place] Food and Drug administration. The performance characteristics have been verified by [facility]. Results must be considered in the clinical context, and a negative result does not rule out infection. Interpretive data last revised 2023. Manuela Suarez MD LAB MICROBIOLOGY - GENERA L ORDERABLES Final Result [facility] ([place]) 1 Formerly [facility] [employer] [place] [address] * eGFR (07/10/2024 2:46 PM CDT) Pathologist [facility] eGFR >90 >=60 mL/min/1. 73 m2 Comment: Interpretive Data Reference Interval Normal >/= 90 mL/min/1.73m2 Mildly decreased* 60 - 89 mL/min/1.73m2 Mildly to moderately decreased 45 - 59 mL/min/1.73m2 Moderately to severely decreased 30 - 44 mL/min/1.73m2 Severely decreased 15 - 29 mL/min/1.73m2 Kidney Failure < 15 mL/min/1.73m2 *Relative to young adult level Estimated glomerular filtration rate is determined by the 2020 CKD-EPI equation recommended by the National Kidney Foundation (A Unifying Approach to GFR Estimation: Recommendations of the NKF-ASK Task Force on Reassessing the Inclusion of Race in Diagnosing Kidney Disease, JASN 2020). The CKD-EPI equation should not be used for patients with unstable renal function and has not been validated in children and those over 70. Current interpretive data was last reviewed 2021. Blood 07/10/2024 2:46 PM CDT 07/10/2024 2:52 PM CDT Manuela Suarez MD LAB BLOOD ORDERABLES Nelida walter Result [facility] ([place]) 1 Formerly [facility] Department [place] [address] * (ABNORMAL) Differential, auto (07/10/2024 2:46 PM CDT) Pathologist [facility] Neutrophil abs 6.18 1.50 - 6.50 K/cumm Imm gran abs 0.03 0.00 - 0.10 K/cumm [facility] ([place]) Lymphocyte abs 1.95 0.80 - 3.30 K/cumm [facility] ([place]) Monocyte abs 0.83(H) 0.20 - 0.80 K/cumm [facility] ([place]) Eosinophil abs 0.19 0.00 - 0.50 K/cumm [facility] ([place]) Basophil abs 0.06 0.00 - 0.10 K/cumm [facility] ([place]) Neutrophil pct 66.9 % [facility] ([place]) Comment: Interpretive Data Percent cell count reference ranges are not reported, since discordance with absolute values may lead to misinterpretation of CBC data. Current Interpretive Data was last revised on 2017. Imm gran pct 0.3 % [facility] ([place]) Comment: Interpretive Data Percent cell count reference ranges are not reported, since discordance with absolute values may lead to misinterpretation of CBC data. Current Interpretive Data was last revised on 2017. Lymphocyte pct 21.1 % [facility] ([place]) Comment: Interpretive Data Percent cell count reference ranges are not reported, since discordance with absolute values may lead to misinterpretation of CBC data. Current Interpretive Data was last revised on 2017. Monocyte pct 9.0 % [facility] ([place]) Comment: Interpretive Data Percent cell count reference ranges are not reported, since discordance with absolute values may lead to misinterpretation of CBC data. Current Interpretive Data was last revised on 2017. Eosinophil pct 2.1 % [facility] ([place]) Comment: Interpretive Data Percent cell count reference ranges are not reported, since discordance with absolute values may lead to misinterpretation of CBC data. Current Interpretive Data was last revised on 2017. Basophil pct 0.6 % [facility] ([place]) Comment: Interpretive Data Percent cell count reference ranges are not reported, since discordance with absolute values may lead to misinterpretation of CBC data. Current Interpretive Data was last revised on 2017. Blood 07/10/2024 2:46 PM CDT 07/10/2024 2:52 PM CDT us Manuela Suarez MD LAB BLOOD ORDERABLES Nelida walter Result [facility] ([place]) 1 Formerly [facility] Department [place] [address] * CBC with auto differential (07/10/2024 2:46 PM CDT) WBC 9.24 3.80 - 9.90 K/cumm Hgb 13.4 13.0 - 17.5 g/dL [facility] ([place]) Hct 39.1 38.9 - 50.3 % [facility] ([place]) Plt 263 150 - 400 K/cumm [facility] ([place]) MPV 10.5 9.1 - 12.3 fL [facility] ([place]) RBC 4.40 4.30 - 5.80 M/cumm [facility] ([place]) MCV 88.9 81.3 - 96.4 fL [facility] ([place]) MCH 30.5 27.1 - 33.3 pg [facility] ([place]) MCHC 34.3 32.3 - 35.7 g/dL [facility] ([place]) RDW CV 13.2 11.1 - 14.9 % [facility] ([place]) RDW SD 42.8 35.7 - 48.1 fL [facility] NRBC abs 0.00 0.00 - 0.01 K/cumm [facility] Blood 07/10/2024 2:46 PM CDT 07/10/2024 2:52 PM CDT Manuela Suarez MD LAB BLOOD ORDERABLES Nelida l Result Performing Organization Address City/[facility]/ZIP Co de Phone Number [facility] ([place]) 1 Formerly [facility] [place] [address] * Ethanol (07/10/2024 2:46 PM CDT) Ethanol <10 <=10 mg/dL Comment: Interpretive Data Legal limit of intoxication > or = 80 mg/dL Levels > or = 400 mg/dL are potentially TOXIC. Current interpretive data was last revised on 2018. Blood 07/10/2024 2:46 PM CDT 07/10/2024 2:52 PM CDT Manuela Suarez MD LAB BLOOD ORDERABLES Nelida l Result [facility] ([place]) 1 Formerly [facility] Department [place] [address] * Comprehensive metabolic panel (07/10/2024 2:46 PM CDT) Sodium 135 135 - 145 mmol/L Potassium, pl 3.9 3.3 - 4.9 mmol/L [facility] ([place]) Chloride 100 97 - 110 mmol/L [facility] ([place]) CO2 23 22 - 32 mmol/L [facility] ([place] Anion gap 12 2 - 15 mmol/L [facility] ([place]) BUN 8 6 - 25 mg/dL [facility] ([place]) Creatinine 0.85 0.80 - 1.30 mg/dL [facility] ([place]) Glucose 131 70 - 199 mg/dL [facility] ([place]) Comment: Interpretive Data Fasting glucose >/= 126 mg/dl is diagnostic for diabetes. Fasting is defined as no caloric intake for at least 8 hours. Fasting glucose between 100 mg/dl to 125 mg/dl is diagnostic of prediabetes. In a patient with classic symptoms of hyperglycemia or hyperglycemic crisis, a random glucose >/= 200 mg/dl is diagnostic for diabetes. In the absence of unequivocal hyperglycemia, results should be confirmed by repeat testing. The classification and Diagnosis of Diabetes Diabetes Care 2021; 46: S19-S40. Current interpretive data was last revised 2022. Calcium 9.5 8.5 - 10.3 mg/dL [facility] ([place]) Bilirubin, total 0.3 0.1 - 1.2 mg/dL [facility] ([place]) Protein, pl 6.9 6.5 - 8.5 g/dL [facility] ([place]) Albumin 4.4 3.5 - 5.0 g/dL [facility] ([place]) Alk phos 58 40 - 130 Units/L [facility] ([place]) ALT 15 7 - 55 Units/L [facility] ([place] AST 17 10 - 50 Units/L [facility] ([place]) Blood 07/10/2024 2:46 PM CDT 07/10/2024 2:52 PM CDT Manuela Suarez MD LAB BLOOD ORDERABLES Nelida l Result [facility] ([place]) 1 Formerly [facility] Department [place] [address] * Urinalysis reflex to microscopic (06/29/2024 6:16 AM CDT) Color, ur Straw Yellow Clarity, ur Clear Clear [facility] Specific gravity, ur 1.006 1.003 - 1.030 [facility] pH, urine 7.0 [facility] Comment: Interpretive Data U rine pH is affected by diet, medications, systemic acid-base disturbances, and renal tubular function. pH may affect urinary stone formation. For example, urine pH below 6.0 may help reduce the tendency for calcium phosphate stones and pH greater than 6.0 may reduce the tendency for uric acid stone formation. Source: [facility] Current Interpretive Data was last revised on 2017 Protein, ur ql Negative Negative [facility] Glucose, ur ql Negative Negative [facility] Ketones, ur Negative Negative [facility] Bilirubin, ur Negative Negative [facility] Blood, ur Negative Negative [facility] Urobilinogen, ur <2.0 <2.0 mg/dL [facility] Nitrite, ur Negative Negative [facility] Leukocyte esterase, ur Negative Negative [facility] UA reflex comment Reflex conditions for microscopic UA not met. [facility] Urine 06/29/2024 6:16 AM CDT 06/29/2024 6:26 AM CDT Lyndsay Sal MD LAB URINE ORDERABLES Final Result Performing Organization Address City/State/[facility] Co de Phone Number [facility] Department [place] [address] * (ABNORMAL) Drugs of Abuse Screen, Urine without Confirmation (06/29/2024 6:16 AM CDT) Amphetamine, ur Not Detected CutOff 500ng/mL Comment: Interpretive Data - Amphetamines: Samples containing greater than 500 ng/mL d-methamphetamine or other cross-reacting amphetamine compounds are reported as positive. Amphetamine immunoassays are subject to significant false positive rates due to cross-reactivity of non-amphetamine drugs. Confirmatory testing required for definitive results. Current Interpretive Data was last reviewed 2022. Barbiturates, ur Not Detected CutOff 200ng/mL [facility] Comment: Interpretive Data - Barbiturates: Samples containing greater than 200 ng/mL secobarbital or other cross-reacting barbiturate compounds are reported as positive. False positive and false negative results are possible. Confirmatory testing required for definitive results. Current Interpretive Data was last reviewed 2022. Benzodiazepines, ur Not Detected CutOff 100ng/mL [facility] Comment: Interpretive Data - Benzodiazepines: Samples containing greater than 100 ng/mL nordiazepam or other cross-reacting compounds are reported as positive. False positive and false negative results are possible. Confirmatory testing required for definitive results. Current Interpretive Data was last reviewed 2022. Cannabinoids, ur Screen Positive, presumptive (A) CutOff 50 ng/mL [facility] Comment: Interpretive Data - Cannabinoids: Samples containing greater than 50 ng/mL delta-9 THC -COOH or other cross- reacting compounds are reported as positive. False positive and false negative results are possible. Confirmatory testing required for definitive results. Current Interpretive Data was last reviewed 2022. Cocaine, ur Not Detected CutOff 150ng/mL [facility] Comment: Interpretive Data - Cocaine: Samples containing greater than 150 ng/mL benzoylecgonine or other cross- reacting compounds are reported as positive. False positive and false negative results are possible. Confirmatory testing required for definitive results. Current Interpretive Data was last reviewed 2022. Fentanyl, Ur Not Detected CutOff 5 ng/mL [facility] Comment: Interpretive Data - Fentanyl: Samples containing greater than 5 ng/mL norfentanyl, fentanyl, or other cross-reacting fentanyl compounds are reported as positive. False positive and false negative results are possible. Confirmatory testing required for definitive results. Current Interpretive Data was last reviewed 2023. Methadone, ur Not Detected CutOff 300ng/mL [facility] Comment: Interpretive Data - Methadone: Samples containing greater than 300 ng/mL d,l-methadone or other cross-reacting compounds are reported as positive. False positive and false negative results are possible. Confirmatory testing required for definitive results. Current Interpretive Data was last reviewed 2022. Opiates, ur Not Detected CutOff 300ng/mL [facility] Comment: Interpretive Data - Opiates: Samples containing greater than 300 ng/mL morphine or other cross-reacting compounds are reported as positive. False positive and false negative results are possible. Confirmatory testing required for definitive results. Current Interpretive Data was last reviewed 2022. Oxycodone, ur Not Detected CutOff 100ng/mL [facility] Comment: Interpretive Data - Oxycodone: Samples containing greater than 100 ng/mL oxycodone or other cross-reacting compounds are reported as positive. False positive and false negative results are possible. Confirmatory testing required for definitive results. Current Interpretive Data was last reviewed 2022. Phencyclidine, ur Not Detected CutOff 25 ng/mL [facility] Comment: Interpretive Data - Phencyclidine: Samples containing greater than 25 ng/mL phencyclidine or other cross-reacting compounds are reported as positive. False positive and false negative results are possible. Confirmatory testing required for definitive results. Current Interpretive Data was last reviewed 2022. Urine Creatinine 36 mg/dL [facility] Comment: Interpretive Data Urine Creatinine: < 10 mg/dL is extremely dilute = or > 10 but < 20 mg/dL is dilute = or > 20 mg/dL is normal Current Interpretive Data was last revised on 2017. Urine 06/29/2024 6:16 AM CDT 06/29/2024 6:28 AM CDT Narrative [facility] - 06/29/2024 7:02 AM CDT Drug of Abuse screening is performed by immunoassay for medical purposes only. This is not to be used for Pain Management purposes. us Lyndsay Sal MD LAB URINE ORDERABLES Final Result [facility] Department [place] [address] * eGFR (06/29/2024 5:39 AM CDT) eGFR >90 >=60 mL/min/1. 73 m2 Comment: Interpretive Data Reference Interval Normal >/= 90 mL/min/1.73m2 Mildly decreased* 60 - 89 mL/min/1.73m2 Mildly to moderately decreased 45 - 59 mL/min/1.73m2 Moderately to severely decreased 30 - 44 mL/min/1.73m2 Severely decreased 15 - 29 mL/min/1.73m2 Kidney Failure < 15 mL/min/1.73m2 *Relative to young adult level Estimated glomerular filtration rate is determined by the 2020 CKD-EPI equation recommended by the National Kidney Foundation (A Unifying Approach to GFR Estimation: Recommendations of the NKF-ASK Task Force on Reassessing the Inclusion of Race in Diagnosing Kidney Disease, JASN 2020). The CKD-EPI equation should not be used for patients with unstable renal function and has not been validated in children and those over 70. Current interpretive data was last reviewed 2021. Blood 06/29/2024 5:39 AM CDT 06/29/2024 6:12 AM CDT Roosevelt ROSE LAB BLOOD ORDERABLES F inal Result [facility] Department [place] [address] * (ABNORMAL) Differential, auto (06/29/2024 5:39 AM CDT) Neutrophil abs 7.7(H) 1.5 - 6.5 K/cumm Imm gran abs 0.1 0.0 - 0.1 K/cumm [facility] Lymphocyte abs 1.5 0.8 - 3.3 K/cumm [facility] Monocyte abs 1.4(H) 0.2 - 0.8 K/cumm [facility] Eosinophil abs 0.2 0.0 - 0.5 K/cumm [facility] Basophil abs 0.1 0.0 - 0.1 K/cumm [facility] Neutrophil pct 70.7 % [facility] Comment: Interpretive Data Percent cell count reference ranges are not reported, since discordance with absolute values may lead to misinterpretation of CBC data. Current Interpretive Data was last revised on 2017. Imm gran pct 0.6 % [facility] Comment: Interpretive Data Percent cell count reference ranges are not reported, since discordance with absolute values may lead to misinterpretation of CBC data. Current Interpretive Data was last revised on 2017. Lymphocyte pct 13.7 % [facility] Comment: Interpretive Data Percent cell count reference ranges are not reported, since discordance with absolute values may lead to misinterpretation of CBC data. Current Interpretive Data was last revised on 2017. Monocyte pct 12.5 % [facility] Comment: Interpretive Data Percent cell count reference ranges are not reported, since discordance with absolute values may lead to misinterpretation of CBC data. Current Interpretive Data was last revised on 2017. Eosinophil pct 1.9 % [facility] Comment: Interpretive Data Percent cell count reference ranges are not reported, since discordance with absolute values may lead to misinterpretation of CBC data. Current Interpretive Data was last revised on 2017. Basophil pct 0.6 % [facility] Comment: Interpretive Data Percent cell count reference ranges are not reported, since discordance with absolute values may lead to misinterpretation of CBC data. Current Interpretive Data was last revised on 2017. Blood 06/29/2024 5:39 AM CDT 06/29/2024 5:52 AM CDT Roosevelt ROSE LAB BLOOD ORDERABLES F inal Result [facility] Department [place] [address] * (ABNORMAL) CBC with auto differential (06/29/2024 5:39 AM CDT) WBC 10.8(H) 3.8 - 9.9 K/cumm Hgb 14.7 13.0 - 17.5 g/dL [facility] Hct 42.8 38.9 - 50.3 % [facility] Plt 224 150 - 400 K/cumm [facility] MPV 11.1 9.1 - 12.3 fL [facility] RBC 4.88 4.30 - 5.80 M/cumm [facility] MCV 87.7 81.3 - 96.4 fL [facility] MCH 30.1 27.1 - 33.3 pg [facility] MCHC 34.3 32.3 - 35.7 g/dL [facility] RDW CV 13.2 11.1 - 14.9 % [facility] RDW SD 42.9 35.7 - 48.1 fL [facility] NRBC abs 0.00 0.00 - 0.01 K/cumm [facility] Blood Venous blood specimen / Unknown 06/29/2024 5:39 AM CDT 06/29/2024 5:52 AM CDT Lyndsay Sal MD LAB BLOOD ORDERABLES Final Result Performing Organization Address City/[facility] Co de Phone Number [facility] Department [place] [address] * Ethanol (06/29/2024 5:39 AM CDT) Ethanol <10 <=10 mg/dL Comment: Interpretive Data Legal limit of intoxication > or = 80 mg/dL Levels > or = 400 mg/dL are potentially TOXIC. Current interpretive data was last revised on 2018. Blood 06/29/2024 5:39 AM CDT 06/29/2024 6:12 AM CDT Lyndsay Sal MD LAB BLOOD ORDERABLES Final Result Performing Organization Address City/[facility] Co de Phone Number [facility] Department [place] [address] * (ABNORMAL) Valproic acid level, total (06/29/2024 5:39 AM CDT) Valproic Acid 18.0(L) 50.0 - 100.0 mcg/mL Comment: Interpretive Data Therapeutic or toxic effects of anticonvulsant drugs may occur at different concentrations in different patients and the correlation between dose and clinical effect must be evaluated individually. Current interpretative data was last revised on 13. Blood 06/29/2024 5:39 AM CDT 06/29/2024 6:12 AM CDT us Lyndsay Sal MD LAB BLOOD ORDERABLES Final Result [facility] [place] [address] * Comprehensive metabolic panel (06/29/2024 5:39 AM CDT) Sodium 142 135 - 145 mmol/L Potassium, pl 4.0 3.3 - 4.9 mmol/L [facility] Chloride 101 97 - 110 mmol/L [facility] CO2 28 22 - 32 mmol/L [facility] Anion gap 13 2 - 15 mmol/L [facility] BUN 7 6 - 25 mg/dL [facility] Creatinine 0.80 0.80 - 1.30 mg/dL [facility] Glucose 107 70 - 199 mg/dL [facility] Comment: Interpretive Data Fasting glucose >/= 126 mg/dl is diagnostic for diabetes. Fasting is defined as no caloric intake for at least 8 hours. Fasting glucose between 100 mg/dl to 125 mg/dl is diagnostic of prediabetes. In a patient with classic symptoms of hyperglycemia or hyperglycemic crisis, a random glucose >/= 200 mg/dl is diagnostic for diabetes. In the absence of unequivocal hyperglycemia, results should be confirmed by repeat testing. The classification and Diagnosis of Diabetes Diabetes Care 2021; 46: S19-S40. Current interpretive data was last revised 2022. Calcium 9.9 8.5 - 10.3 mg/dL [facility] Bilirubin, total 0.4 0.1 - 1.2 mg/dL [facility] Protein, pl 7.9 6.5 - 8.5 g/dL [facility] Albumin 4.7 3.5 - 5.0 g/dL [facility] Alk phos 67 40 - 130 Units/L [facility] ALT 23 7 - 55 Units/L [facility] AST 33 10 - 50 Units/L [facility] Blood 06/29/2024 5:39 AM CDT 06/29/2024 6:12 AM CDT Lyndsay Sal MD LAB BLOOD ORDERABLES Final Result Performing Organization Address [facility] Co de Phone Number [facility] [place] [address] * Valproic acid level, total (06/23/2024 8:21 PM CDT) Valproic Acid 60.0 50.0 - 100.0 mcg/mL Comment: Interpretive Data Therapeutic or toxic effects of anticonvulsant drugs may occur at different concentrations in different patients and the correlation between dose and clinical effect must be evaluated individually. Current interpretative data was last revised on 13. Blood 06/23/2024 8:21 PM CDT 06/23/2024 8:46 PM CDT Narrative [facility] - 06/23/2024 9:18 PM CDT Please draw just prior to giving PM dose of depakote Martell Santana MD LAB BLOOD ORDERABLES Final Result Performing Organization Address [facility] de Phone Number [facility] [place] [address] * HIV 1/2 Antibody plus p24 Antigen Blood (06/19/2024 11:58 AM CDT) Pathologist [facility] HIV 1/2 ab + p24 ag Nonreactive Nonreactive Comment:Nonreactive for HIV- 1 antigen and HIV-1/HIV-2 antibodies. No laboratory evidence of HIV infection. If acute HIV infection is suspected, consider testing for HIV-1 RNA. Current interpretive data was last revised on 21. Blood 06/19/2024 11:5 8 AM CDT 06/19/2024 12:31 PM CDT Martell Santana MD LAB MICROBIOLOGY - GENERAL ORDERABLES Final Result Performing Organization Address City/[facility]/ZIP Co de Phone Number [facility] Department [place] [address] * RPR Blood (06/19/2024 11:58 AM CDT) RPR Nonreactive Nonreactive Blood 06/19/2024 11:5 8 AM CDT 06/19/2024 12:31 PM CDT us Martell Santana MD LAB MICROBIOLOGY - GENERAL ORDERABLES Final Result [facility] [place] [address] * Urinalysis reflex to microscopic and culture Urine (06/18/2024 2:58 PM CDT) Color, ur Straw Yellow Clarity, ur Clear Clear [facility] Specific gravity, ur 1.010 1.003 - 1.030 [facility] pH, urine 6.0 [facility] Comment: Interpretive Data U rine pH is affected by diet, medications, systemic acid-base disturbances, and renal tubular function. pH may affect urinary stone formation. For example, urine pH below 6.0 may help reduce the tendency for calcium phosphate stones and pH greater than 6.0 may reduce the tendency for uric acid stone formation. Source: [facility] Current Interpretive Data was last revised on 2017 Protein, ur ql Negative Negative [facility] Glucose, ur ql Negative Negative [facility] Ketones, ur Negative Negative [facility] Bilirubin, ur Negative Negative [facility] Blood, ur Negative Negative [facility] Urobilinogen, ur <2.0 <2.0 mg/dL [facility] Nitrite, ur Negative Negative [facility] Leukocyte esterase, ur Negative Negative [facility] UA reflex comment Reflex conditions for microscopic UA and culture not met. [facility] Urine 06/18/2024 2:58 PM CDT 06/18/2024 3:05 PM CDT us Eleuterio Lawson MD LAB MICROBIOLOGY - GENERAL ORD ERABLES Final Result [facility] Department [place] [address] * (ABNORMAL) Drugs of Abuse Screen, Urine without Confirmation (06/18/2024 2:58 PM CDT) Amphetamine, ur Not Detected CutOff 500ng/mL Comment: Interpretive Data - Amphetamines: Samples containing greater than 500 ng/mL d-methamphetamine or other cross-reacting amphetamine compounds are reported as positive. Amphetamine immunoassays are subject to significant false positive rates due to cross-reactivity of non-amphetamine drugs. Confirmatory testing required for definitive results. Current Interpretive Data was last reviewed 2022. Barbiturates, ur Not Detected CutOff 200ng/mL [facility] Comment: Interpretive Data - Barbiturates: Samples containing greater than 200 ng/mL secobarbital or other cross-reacting barbiturate compounds are reported as positive. False positive and false negative results are possible. Confirmatory testing required for definitive results. Current Interpretive Data was last reviewed 2022. Benzodiazepines, ur Not Detected CutOff 100ng/mL [facility] Comment: Interpretive Data - Benzodiazepines: Samples containing greater than 100 ng/mL nordiazepam or other cross-reacting compounds are reported as positive. False positive and false negative results are possible. Confirmatory testing required for definitive results. Current Interpretive Data was last reviewed 2022. Cannabinoids, ur Screen Positive, presumptive (A) CutOff 50 ng/mL [facility] Comment: Interpretive Data - Cannabinoids: Samples containing greater than 50 ng/mL delta-9 THC -COOH or other cross- reacting compounds are reported as positive. False positive and false negative results are possible. Confirmatory testing required for definitive results. Current Interpretive Data was last reviewed 2022. Cocaine, ur Not Detected CutOff 150ng/mL [facility] Comment: Interpretive Data - Cocaine: Samples containing greater than 150 ng/mL benzoylecgonine or other cross- reacting compounds are reported as positive. False positive and false negative results are possible. Confirmatory testing required for definitive results. Current Interpretive Data was last reviewed 2022. Fentanyl, Ur Not Detected CutOff 5 ng/mL [facility] Comment: Interpretive Data - Fentanyl: Samples containing greater than 5 ng/mL norfentanyl, fentanyl, or other cross-reacting fentanyl compounds are reported as positive. False positive and false negative results are possible. Confirmatory testing required for definitive results. Current Interpretive Data was last reviewed 2023. Methadone, ur Not Detected CutOff 300ng/mL [facility] Comment: Interpretive Data - Methadone: Samples containing greater than 300 ng/mL d,l-methadone or other cross-reacting compounds are reported as positive. False positive and false negative results are possible. Confirmatory testing required for definitive results. Current Interpretive Data was last reviewed 2022. Opiates, ur Not Detected CutOff 300ng/mL [facility] Comment: Interpretive Data - Opiates: Samples containing greater than 300 ng/mL morphine or other cross-reacting compounds are reported as positive. False positive and false negative results are possible. Confirmatory testing required for definitive results. Current Interpretive Data was last reviewed 2022. Oxycodone, ur Not Detected CutOff 100ng/mL [facility] Comment: Interpretive Data - Oxycodone: Samples containing greater than 100 ng/mL oxycodone or other cross-reacting compounds are reported as positive. False positive and false negative results are possible. Confirmatory testing required for definitive results. Current Interpretive Data was last reviewed 2022. Phencyclidine, ur Not Detected CutOff 25 ng/mL [facility] Comment: Interpretive Data - Phencyclidine: Samples containing greater than 25 ng/mL phencyclidine or other cross-reacting compounds are reported as positive. False positive and false negative results are possible. Confirmatory testing required for definitive results. Current Interpretive Data was last reviewed 2022. Urine Creatinine 71 mg/dL [facility] Comment: Interpretive Data Urine Creatinine: < 10 mg/dL is extremely dilute = or > 10 but < 20 mg/dL is dilute = or > 20 mg/dL is normal Current Interpretive Data was last revised on 2017. Urine 06/18/2024 2:58 PM CDT 06/18/2024 3:13 PM CDT Narrative [facility] - 06/18/2024 3:53 PM CDT Drug of Abuse screening is performed by immunoassay for medical purposes only. This is not to be used for Pain Management purposes. us Eleuterio Lawson MD LAB URINE ORDERABLES Final Res ult [facility] [place] [address] * NE CRITICAL CARE ILL/INJURED PATIENT INIT 30-74 MIN (06/18/2024 8:32 AM CDT) Narrative Lori Tobar MD - 06/18/2024 8:32 AM CDT Lori Tobar MD 06/24/2024 8:33 AM Critical Care Performed by: Lori Tobar MD Authorized by: Lori Tobar MD Critical care provider statement: As reflected in the history, physical exam, orders, notes, and/or MDM, I was personally present while the patient was critically ill and provided critical care services for 35 minutes, excluding time involved in separately billable procedures. Critical care was necessary to treat or prevent imminent or life-threatening deterioration of the following condition(s): acute psychotic episode Critical care was time spent by me providing the following: sedatives and psychotropic medications I provided emergent necessary critical care medicine services to this patient. I ordered and reviewed test results and/or imaging studies. I spent time discussing the management of this critically ill patient with consultants and the medical staff. I spent time discussing the management and therapeutic options for this critically ill patient with the patient themselves or with the appropriate designated surrogate decision-maker. I spent time documenting in the medical record. us Lori Tobar MD IN CLINIC/BEDSIDE ORDERABLE S Final Result * eGFR (06/18/2024 3:30 AM CDT) eGFR >90 >=60 mL/min/1. 73 m2 Comment: Interpretive Data Reference Interval Normal >/= 90 mL/min/1.73m2 Mildly decreased* 60 - 89 mL/min/1.73m2 Mildly to moderately decreased 45 - 59 mL/min/1.73m2 Moderately to severely decreased 30 - 44 mL/min/1.73m2 Severely decreased 15 - 29 mL/min/1.73m2 Kidney Failure < 15 mL/min/1.73m2 *Relative to young adult level Estimated glomerular filtration rate is determined by the 2020 CKD-EPI equation recommended by the National Kidney [employer] (A Unifying Approach to GFR Estimation: Recommendations of the NKF-ASK Task Force on Reassessing the Inclusion of Race in Diagnosing Kidney Disease, JASN 2020). The CKD-EPI equation should not be used for patients with unstable renal function and has not been validated in children and those over 70. Current interpretive data was last reviewed 2021. Blood 06/18/2024 3:30 AM CDT 06/18/2024 3:39 AM CDT us Eleuterio Lawson MD LAB BLOOD ORDERABLES Final Res ult [facility] Department [place] [address] * (ABNORMAL) Differential, auto (06/18/2024 3:30 AM CDT) Neutrophil abs 7.6(H) 1.5 - 6.5 K/cumm Imm gran abs 0.0 0.0 - 0.1 K/cumm [facility] Lymphocyte abs 1.8 0.8 - 3.3 K/cumm [facility] Monocyte abs 1.0(H) 0.2 - 0.8 K/cumm [facility] Eosinophil abs 0.2 0.0 - 0.5 K/cumm [facility] Basophil abs 0.1 0.0 - 0.1 K/cumm [facility] Neutrophil pct 70.8 % [facility] Comment: Interpretive Data Percent cell count reference ranges are not reported, since discordance with absolute values may lead to misinterpretation of CBC data. Current Interpretive Data was last revised on 2017. Imm gran pct 0.3 % [facility] Comment: Interpretive Data Percent cell count reference ranges are not reported, since discordance with absolute values may lead to misinterpretation of CBC data. Current Interpretive Data was last revised on 2017. Lymphocyte pct 17.1 % [facility] Comment: Interpretive Data Percent cell count reference ranges are not reported, since discordance with absolute values may lead to misinterpretation of CBC data. Current Interpretive Data was last revised on 2017. Monocyte pct 9.5 % [facility] Comment: Interpretive Data Percent cell count reference ranges are not reported, since discordance with absolute values may lead to misinterpretation of CBC data. Current Interpretive Data was last revised on 2017. Eosinophil pct 1.8 % [facility] Comment: Interpretive Data Percent cell count reference ranges are not reported, since discordance with absolute values may lead to misinterpretation of CBC data. Current Interpretive Data was last revised on 2017. Basophil pct 0.5 % [facility] Comment: Interpretive Data Percent cell count reference ranges are not reported, since discordance with absolute values may lead to misinterpretation of CBC data. Current Interpretive Data was last revised on 2017. Blood 06/18/2024 3:30 AM CDT 06/18/2024 3:39 AM CDT Eleuterio Lawson MD LAB BLOOD ORDERABLES Final Res ult Performing Organization Address City/[facility]/ZIP Co de Phone Number [facility] Department [place] [address] * Thyroid Function [place] (06/18/2024 3:30 AM CDT) TSH 1.05 0.30 - 4.20 mcIUnit/mL Blood 06/18/2024 3:30 AM CDT 06/18/2024 3:39 AM CDT Eleuterio Lawson MD LAB BLOOD ORDERABLES Final Res ult Performing Organization Address City/[facility]/ZIP Co de Phone Number [facility] Department [place] [address] * (ABNORMAL) CBC with auto differential (06/18/2024 3:30 AM CDT) WBC 10.7(H) 3.8 - 9.9 K/cumm Hgb 14.3 13.0 - 17.5 g/dL [facility] Hct 41.5 38.9 - 50.3 % [facility] Plt 263 150 - 400 K/cumm [facility] MPV 11.0 9.1 - 12.3 fL [facility] RBC 4.74 4.30 - 5.80 M/cumm [facility] MCV 87.6 81.3 - 96.4 fL [facility] MCH 30.2 27.1 - 33.3 pg [facility] MCHC 34.5 32.3 - 35.7 g/dL [facility] RDW CV 13.2 11.1 - 14.9 % [facility] RDW SD 42.7 35.7 - 48.1 fL [facility] NRBC abs 0.00 0.00 - 0.01 K/cumm [facility] Blood 06/18/2024 3:30 AM CDT 06/18/2024 3:39 AM CDT Eleuterio Lawson MD LAB BLOOD ORDERABLES Final Res ult Performing Organization Address [facility] Co de Phone Number [facility] [place] [address] * Ethanol (06/18/2024 3:30 AM CDT) Ethanol <10 <=10 mg/dL Comment: Interpretive Data Legal limit of intoxication > or = 80 mg/dL Levels > or = 400 mg/dL are potentially TOXIC. Current interpretive data was last revised on 2018. Blood 06/18/2024 3:30 AM CDT 06/18/2024 3:39 AM CDT Eleuterio Lawson MD LAB BLOOD ORDERABLES Final Res ult [facility] [place] [address] * Basic metabolic panel (06/18/2024 3:30 AM CDT) Pathologist [facility] Sodium 143 135 - 145 mmol/L Potassium, pl 4.1 3.3 - 4.9 mmol/L [facility] Chloride 106 97 - 110 mmol/L [facility] CO2 25 22 - 32 mmol/L [facility] Anion gap 12 2 - 15 mmol/L [facility] BUN 8 6 - 25 mg/dL [facility] Creatinine 1.00 0.80 - 1.30 mg/dL [facility] Glucose 106 70 - 199 mg/dL [facility] Comment: Interpretive Data Fasting glucose >/= 126 mg/dl is diagnostic for diabetes. Fasting is defined as no caloric intake for at least 8 hours. Fasting glucose between 100 mg/dl to 125 mg/dl is diagnostic of prediabetes. In a patient with classic symptoms of hyperglycemia or hyperglycemic crisis, a random glucose >/= 200 mg/dl is diagnostic for diabetes. In the absence of unequivocal hyperglycemia, results should be confirmed by repeat testing. The classification and Diagnosis of Diabetes Diabetes Care 202; 46: S19-S40. Current interpretive data was last revised 2022. Calcium 9.8 8.5 - 10.3 mg/dL [facility] Blood 06/18/2024 3:30 AM CDT 06/18/2024 3:39 AM CDT us Eleuterio Lawson MD LAB BLOOD ORDERABLES Final Res ult [facility] [place] [address] * Hepatitis C antibody Blood (10/02/2023 5:43 AM CDT) [facility] Hep C Ab Nonreactive Nonreactive Comment:Antibodies to HCV no t detected. Does NOT exclude the possibility of recent exposure to HCV. Current interpretive data was last revised on 21 Blood 10/02/2023 5:43 AM CDT 10/02/2023 7:40 AM CDT us Denise Reyes MD LAB MICROBIOLOGY - GEN ERAL ORDERABLES Final Result [facility] [place] [address] from Last 3 Months or Most Recently Relevant to Health Maintenance Insurance IDPA IDPA IDPA Advance Directives For more information, please contact: [phone] * Full Code (Latest Code Status on File) Date Activated Date Inactivated Comments 07/20/2024 10:37 AM 08/12/2024 7:23 PM * Full Code Date Activated Date Inactivated Comments 07/16/2024 6:49 AM 07/17/2024 4:32 PM * Full Code Date Activated Date Inactivated Comments 06/18/2024 8:00 PM 06/27/2024 8:54 PM * Full Code Date Activated Date Inactivated Comments 03/04/2024 12:54 AM 03/12/2024 8:31 PM * Full Code Date Activated Date Inactivated Comments 02/16/2024 6:20 PM 02/22/2024 6:38 PM Care Teams Water [employer] Engineer Relationship Specialty Start Date End Date Anderson Huynh PA [address] [place] [address] PCP - General Internal Medicine 04/21/23
--- OUTSIDE RECORDS SUMMARY | 2024-08-27 00:35 | XMS_ITS ---
Author Organization [facility] Address [address] [place] [address] Care Team Providers Care Change Consultant Name Role Phone Bebeto Kang Primary Care Provider Riya Chakraborty Unavailable [phone] REASON FOR VISIT On CRU- New Eval Encounters Encounter Location Date Provider Diagnosis [address] [facility] [place] [address] 05/19/2024 Riya Chakraborty Plan Of Treatment No Information Progress Notes * Gloria REEDOB:2000 (24 yo M)Acc No.[id number]:05/19/2024 UNLOCKED PROGRESS NOTE Patient: Rochelle CORONA José Miguel Provider: ANG Pham :2000 A ge:23 Y S ex:Male Date:05/19/2024 Phone: Address:[address] [place] [address] [id number] Pcp:Bebeto Kang Subjective: * Chief Complaints: * 1 . On CRU- New Eval. * Medical History: Objective: * Vitals: Assessment: Plan: * Treatment: * * Electronic signature of Yvette Chakraborty on 08/27/2024 at 12:35 AM CDT Sign off status: Pending * Provider: ANG Pham Date: 0 05/19/2024 Generated for Baudilio justice/Yaquelin/eTramonsmitting on: 0 08/27/2024 12:35 AM CDT
--- OUTSIDE RECORDS SUMMARY | 2024-08-27 00:35 | XMS_ITS | Data Portability ---
Author Organization [place] [facility] [employer], Main Office Address [address] [place] [address] Assessment No assessment recorded. Plan of Treatment Reminders Order Date Submit Date Provider Last Modified By Organization Details Last Modified Time Details Appointments None recorded. Lab lithium, serum 2023 024 [facility] (Lab), [address] [place], [address], 4 14:47:42 CBC w/ auto diff [address] (Lab), [address] [place], [address], 3 11:53:14 CMP, serum or plasma [address] (Lab), [address] [place], [address], 3 11:53:14 lipid panel, serum [address] (Lab), [address] [place], [address], 3 12:48:15 TSH + free T4, serum [address] (Lab), [address] [place], [address], 3 11:53:14 lithium, serum [address] (Lab), [address] [place], [address], 3 12:48:25 HbA1c (hemoglobin A1c), blood 2022 023 [email or web address] [facility] (Lab), [address] [place], [address], 3 12:48:24 Referral psychiatris t referral - 22 y/o with bipolar 1 . first manic episode was last month. Please eval and treat. Thank you 2022 023 [email or web address] [facility], [address] [facility] , [address], [place], [address], 4 10:50:44 Procedures None recorded. Surgeries None recorded. Imaging None recorded. Medication Orders aripiprazol e 15 mg tablet 2022 023 [facility], [place] [address], [address], 3 11:42:51 lithium carbonate ER 300 mg tablet,exte nded release 2022 023 [facility], [place] [address], [address], 3 11:43:53 Patient TargetsNo targets recorded. Patient Instructions Encounter Date Encounter Id Patient Instructions Last Modified By Organization Details Last Modified Time 03/22/2023 [id number] counseled : no si/hi [email or web address] Not available 04/02/2023 19:26:23 12/05/2023 [id number] reviewed [employer] to [employer] . recheck BP here in 7 days , free. does have an appointment with psychiatrist soon [email or web address] Not available 12/10/2023 15:22:23 Reason for Referral Psychiatrist Referral for Se candelaria bipolar I disorder 22 y/o with bipolar 1 . first manic episode was last month. Please eval and treat. Thank you Referring Physician: Anderson Huynh, Family Medicine, Encounter Date: 03/22/2023 Results Created Date Observation Date Name Description Value Unit Range Abnormal Flag Note LastModifiedBy Organization Detail LastModifiedTime Result Notes None recorded. Problems Name Problem SNOMED Code Status Onset Date Resolution Date Notes Provider Name and Address Organization Details Recorded Time Severe bipolar I disorder 255647694 Active 2022 ROSE Cedeño [address], [address], [place], [address], [employer] 3 11:39:38 Gastroesophage al reflux disease 447450472 Active 2023 ROSE Cedeño [address], [place], [address], [employer] 4 15:32:54 Problem Notes None recorded. Medical Equipment None Reported. Allergies No known drug allergies Medications Name Sig Start Date Stop Date Status Note LastModified by Organization Details LastModified Time benztropi ne 0.5 mg tablet Take 1 tablet twice a day by oral route for 30 days. 2023 active Not Available Not Available Not Avai lable haloperid ol 5 mg tablet TAKE 1 TABLET BY MOUTH TWICE A DAY active Not Available Not Available No t Available divalproe x 250 mg tablet,de layed release TAKE 1 TABLET BY MOUTH TWICE DAILY active Not Available Not Available No t Available quetiapin e 200 mg tablet TAKE 1 Tablet BY MOUTH TWICE DAILY active Not Available Not Available No t Available olanzapin e 5 mg tablet Take 1 tablet every day by oral route around the clock for 30 days. active Not Available Not Available No t Available olanzapin e 10 mg tablet Take 1 tablet every day by oral route at bedtime for 30 days. active Not Available Not Available No t Available lithium carbonate ER 300 mg tablet,ex tended release Take 1 tablet every day by oral route in the morning for 30 days. 2023 active Not Available Not Available Not Avai lable hydroxyzi ne HCl 50 mg tablet active Not Available Not Available No t Available lithium carbonate ER 450 mg tablet,ex tended release TAKE 1 TABLET BY MOUTH EVERY DAY AT BEDTIME FOR 30 DAYS 12/04 completed dose adjustme nt Not Available Not Available Not Available propranol ol 10 mg tablet TAKE 1 TABLET BY MOUTH TWICE A DAY DIRECTED active Not Available Not Available No t Available famotidin e 20 mg tablet TAKE 1 TABLET BY MOUTH TWICE DAILY 30 MINUTES BEFORE MEALS active Not Available Not Available No t Available trazodone 100 mg tablet active Not Available Not Available Not Available lithium carbonate 600 mg capsule Take 1 capsule every day by oral route at bedtime for 30 days. 2023 active Not Available Not Available Not Avai lable divalproe x ER 500 mg tablet,ex tended release 24 hr active Not Available Not Available Not Available haloperid ol 10 mg tablet TAKE 1 TABLET BY MOUTH TWICE A DAY 12/04 completed dose adjustme nt Not Available Not Available Not Available nicotine 21 mg/24 hr daily transderm al patch APPLY 1 PATCH ON SKIN DAILY active Not Available Not Available No t Available olanzapin e 20 mg tablet TAKE 1 TABLET BY MOUTH AT BEDTIME active Not Available Not Available No t Available hydroxyzi ne pamoate 25 mg capsule active Not Available Not Available Not Available aripipraz ole 15 mg tablet Take 1 tablet every day by oral route at bedtime for 30 days. 2023 active Not Available Not Available Not Avai lable quetiapin e ER 50 mg tablet,ex tended release 24 hr TAKE 1 TABLET BY MOUTH EVERY DAY AT BEDTIME FOR 30 DAYS 12/04 completed Not Available Not Available Not Available Vitals Date Recorded Body weight Body mass index (BMI) Body height Body temperature Heart rate Oxygen saturation Oxygen saturation in Arterial blood by Pulse oximetry Systolic blood pressure Diastolic blood pressure Provider Name and Address Organization Details Last Updated DateTime 3 32965.4 5 g 23 kg/m2 172.72 cm 97.9 [degF] 89 /min 99 % 99 % 118 mm[Hg] 88 mm[Hg] Nancy Newberry MA [place] [facility] 3 11:26:25 Date Recorded Body height Body mass index (BMI) Body weight Body temperature Heart rate Oxygen saturation Oxygen saturation in Arterial blood by Pulse oximetry Respiratory rate Systolic blood pressure Diastolic blood pressure Provider Name and Address Organization Details Last Updated DateTime 4 172.72 cm 23.7 kg/m2 57684.4 1 g 98.5 [degF] 96 /min 96 % 96 % 16 /min 124 mm[Hg] 96 mm[Hg] Sarah Noble RN [employer] 11:10:31 Social History Question Answer Notes LastModified by [employer] Details LastModified Time Tobacco Smoking Status Current Some Day Smoker SOY Tom, [employer] 03/22/2023 11:31:47 What Is Your Level Of Caffeine Consumption? Moderate [email or web address] Information not available 03/22/2023 Which Illicit Or Recreational Drugs Have You Used? [place] Pen [email or web address] Information not available 03/22/2023 Do You Use Your Seat Belt Or Car Seat Routinely? Yes [email or web address] Information not available 03/22/2023 Do You Participate In Social Media? Yes [email or web address] Information not available 03/22/2023 Have You Used IV Drugs? No Information not available 03/22/2023 How Many Years Have You Used E-cigarettes Or Vape? 6 [email or web address] Information not available 03/22/2023 Sex: Unknown Functional Status Question Answer Note LastModified by [employer] Details LastModified Time Do you use any illicit or recreational drugs? Yes [email or web address] Information not available 03/22/2023 Do you or have you ever used any other forms of tobacco or nicotine? Yes [email or web address] Information not available 03/22/2023 What is your level of alcohol consumption? None [email or web address] Information not available 03/22/2023 Do you or have you ever used smokeless tobacco? [id number] [email or web address] Information not available 03/22/2023 Do you or have you ever used e-cigarettes or vape? Current user of electronic cigarettes [email or web address] Information not available 03/22/2023 Mental Status Question Answer Note LastModified by Organization D etails LastModified Time Do you feel stressed (tense, restless, nervous, or anxious, or unable to sleep at night)? [id number] [email or web address] Information not available 03/22/2023 Family History Relationship Description Onset Age of this Age Resolved Age Notes LastModified by Organization Details LastModified Time Paternal Grandfather Schizophreni a [email or web address] Not available 03/09 11:28:04 Medical History No medical history recorded. Past Encounters Encounter ID Performer Location Encounter Start Date Encounter Closed Date Diagnosis/Indication Diagnosis SNOMED-CT Code Diagnosis ICD10 Code Diagnosis Note [id number] Bienvenido Ngo MD [facility] Radha villegas [address] [place] [address] 03/22/2023 11:10:12 03/22/2023 11:57:17 Severe bipolar I disorder 455020503 F31.9 Diabetes m [facility] screening 735444404 Z13.1 Hyperlipid emia screening 511394087 Z13.220 Screening for disorder 868089948 Z13.9 Thyroid di sorder screening 000260715 Z13.29 [id number] Juan Toledo MD [facility] Radha [address]as [address] [facility] [address] [place] [address] 12/05/2023 11:02:25 12/05/2023 11:32:58 Severe bipolar I disorder 822354924 F31.9 Health Concerns Section Related Observation LastModified by Organization Detai ls LastModified Time None Recorded Concern Status LastModified by Organization Details LastModified Time None Recorded Advance Directives Directive None Recorded Payers Encounter Date Sequence Insurance Name Policy Number Policy Ribeiro Covered Member ID Ribeiro Member ID Guarantor Name 03/22/2023 1 [facility] [id number] Murray Marshall [id number] José Miguel Marshall 12/05/2023 1 *SELF PAY* Pablo Marshall Notes Date Note Type Note Provider Name and Address Organization Details Recorded Time 03/22/2023 text/html on lithium , was in [place] ROSE Cedeño [address], [place], [address], [facility] [employer] 04/02/2023 19:26:27 12/05/2023 text/html involuntary jerking episodes , ROSE Cedeño [address], [place], [address], [facility] [employer] 12/10/2023 15:22:29
--- OUTSIDE RECORDS SUMMARY | 2024-08-27 00:36 | XMS_ITS | Clinical Summary ---
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 Name Role Phone Anderson Huynh Primary Care Provider + Allergies No known active allergies Medications divalproex DR (DEPAKOTE) 250 mg EC tabletIndications :Bipolar Disorder Take 3 tablets (750 mg total) by mouth 2 (two) times a day 180 tablet 11 025 2025 Active senna-docusate (PERICOLACE) 8.6-50 mgIndications:For clozapine induced constipation prevention Take 2 tablets by mouth daily 180 tablet 025 Active cloZAPine (CLOZARIL) 50 mg tabletIndications :Bipolar Disorder in Remission Take 5 tablets (250 mg total) by mouth nightly 300 tablet 025 2024 Active ARIPiprazole lauroxil (ARISTADA) 882 mg/3.2 mL suspension,extend ed rel syringIndications :Bipolar Disorder Type 1 with psychosis Inject 3.2 mL (882 mg total) into the muscle as instructed every 4 (four) weeks 3.2 mL 11 025 Active ARIPiprazole (ABILIFY) 10 mg disintegrating tabletIndications [...] lack of income. - nicotine patch - psychotherapist counselor on cessation Bipolar disorder with severe [...] he appeared at discharge at his last [facility] pavilion stay. Consequently, we do not think [...] harm to self or others today. Update 4/10: pt with no behavioral issues, sleeping well. Some residual hypersexuality, but not currently causing issues on the unit. Compliant with medications. Denying psych symptoms. Stable for d/c. -s/p Abilify maintena 400 mg on 07/13 at [facility] -Continue oral bridge Abilify 10 mg PO [...] plans, and is planning to discharge to fdc when bed is available. Plan - Continue [...] and judgement. He still wishes to pursue Sara on discharge, and it is unclear whether [...] discharging soon. Patient will be discharging to fdc, and discussed with him need to call shelters. -Zyprexa 10 mg QAM and 20 mg QHS -Depakote 500 mg QAM and 1000 mg QHS -trough level = 60 on 500 mg BID -Discontinue Ativan tonight - granted 06/25/2024 -PRNs: PO Haldol 5 mg q6h PRN of IM Haldol 5 mg/Ativan 2 mg for clinically emergent agitation -Anticipate discharge by Sunday at the latest Homeless 03/04/2024 Assessment & Plan (03/04/2024 1:10 PM BACKUP OPERATOR): Would consult social work to assist with this. Cannabis use disorder, severe, dependence 2023 Assessment & Plan (07/20/2024 1:38 PM CDT): Hx of chronic daily cannabis use. Wishes he could use more now but unable to afford it. - psychotherapist counselor on importance of abstaining from substances Assessment & Plan (07/16/2024 10:56 AM CDT): Likely contributing to complaint and complicating management Routine general medical exam ination at a health care facility 10/01/2023 Assessment & Plan (07/16/2024 10:56 AM CDT): Hospital Medicine will continue to follow through his admission Assessment & Plan (02/17/2024 10:14 AM BACKUP OPERATOR): No acute medical concern Psychiatry Team following [...] 02/16/2024 Assessment & Plan (03/05/2024 10:14 AM BACKUP OPERATOR): José Miguel has a hx of behavior [...] apprec. Assessment & Plan (03/04/2024 1:10 PM BACKUP OPERATOR): Per psychiatry. Assessment & Plan (03/04/2024 11:15 AM BACKUP OPERATOR): José Miguel has a hx of behavior [...] apprec. Assessment & Plan (02/20/2024 9:38 AM BACKUP OPERATOR): patient self-describes schizophrenia dx ~ 1 year ago and many admissions since then. 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 Unclear [...] on 02-25-24 at 0701 Med recs apprec Berny to help with dispo Assessment & Plan (02/19/2024 11:55 AM BACKUP OPERATOR): patient self-describes schizophrenia dx ~ 1 year ago and many admissions since then. 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 Unclear [...] dispo Assessment & Plan (02/18/2024 10:38 AM BACKUP OPERATOR): patient self-describes schizophrenia dx ~ 1 year ago and many admissions since then. 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 Unclear if this is due to abdoul or the result of Meth. I will give him another day or two without meds. If his behavior conitnues, then it is more likely that it is due to abdoul and he will be treated with Li. He gave permission for me to speak with his , Candy. [phone] 96-hour hold Med recs apprec Swer to help with dispo Assessment & Plan (02/17/2024 10:15 AM BACKUP OPERATOR): As per Psychiatry Forehead abrasion, initial encounter [...] days and patient solely on latuda. Last [place] administered on 10/03. Latuda d/c'ed on 10/07 [...] - Appreciate psychiatric care by primary team Encounters Date Type Department Care Team Description 08/18/2024 1:20 AM CDT - 08/18/2024 1:21 AM CDT Emergency [facility] Emergency Department [address] [place] [phone] Anabelle Allison MD Hypersexuality (Primary Dx); Malingering Discharge Disposition: Discharge to home or self care 08/15/2024 9:41 AM CDT - 08/15/2024 1:19 PM CDT Emergency [facility] Emergency Department [address] [place] [address] Kendrick Hassan MD Bipolar affective disorder, remission status unspecified (HCC) (Primary Dx) Discharge Disposition: Discharge to home or self care 07/19/2024 8:22 PM CDT - 08/12/2024 2:55 PM CDT Hospital Encounter [address] [phone] Lori Mcmillan MD Kane, MD Chela Boston, MD Sapphire Ferreira, Maulik Cordon MD Abdoul (HCC) (Primary Dx); Bipolar I disorder, current or most recent episode manic, with psychotic features (HCC) [F31.2] Discharge Disposition: Discharge to home or self care 07/18/2024 Telephone [facility] [address] [facility] [address] [place] [phone] Winnie Pena 07/16/2024 12:23 AM CDT - 07/17/2024 12:25 PM CDT Hospital Encounter [facility] [address] [place] [id number] Rosalio Balbuena MD Trillo Alvarez, Ludwig, MD O'Jose Antonio, Bola Hartmann MD Bipolar disorder with severe abdoul (HCC) (Primary Dx) Discharge Disposition: Discharge to home or self care 07/16/2024 Results Follow-Up [facility] Emergency Department [address] [place] [address] Loyd Corbett RN CBC with auto differential, Drugs of Abuse Screen, Urine without Confirmation, Valproic acid level, total, Differential, auto 07/11/2024 3:21 PM CDT - 07/11/2024 11:59 PM CDT Hospital En[facility] Emergency, Room R Discharge Disposition: Discharge to home or self care 07/10/2024 2:00 PM CDT - 07/11/2024 3:27 PM CDT Emergency [facility] Emergency Department [address] [place] [address] Manuela Suarez MD Kanumuri, Raghu, MD Burnside, Fredrick Corona MD Psychosis, unspecified psychosis type (HCC) (Primary Dx); Homicidal ideation Discharge Disposition: Discharge to psych hospital or psych unit 07/10/2024 1:44 PM CDT - 07/10/2024 11:59 PM CDT Hospital Encounter [facility] Emergency, Room R Discharge Disposition: Discharge to home or self care 07/04/2024 Telephone [facility] [address] [place] [address] Outpatient Health [address] [place] [phone] Winnie Pena 07/02/2024 Telephone [facility] Psych[facility]ry Clinic [address] [place] [address] Outpatient Health [address] [place] [phone] Maryjane Cherry Appointment Reminder Call 07/01/2024 3:06 AM CDT - 07/01/2024 4:52 AM CDT Emergency [facility] Emergency Department [address] [place] [address] Adrienne Camargo MD Bipolar 1 disorder (HCC) (Primary Dx) Discharge Disposition: Discharge to home or self care 06/29/2024 5:18 AM CDT - 06/29/2024 3:04 PM CDT Emergency [facility] Emergency Department [address] [place] [address] Lyndsay Sal MD Wagner, Johnathon Arias MD Bipolar 1 disorder (HCC) (Primary Dx) Discharge Disposition: Discharge to home or self care 06/18/2024 3:09 AM CDT - 06/27/2024 3:50 PM CDT Hospital Encounter [facility] [address] [place] [address] Julien Iglesias MD Chapman, MD Amadou Martinez, MD Deysi Escobar, MD Max Velasquez, Martell Camacho MD Psychosis, unspecified psychosis type (HCC) (Primary Dx); Bipolar I disorder, current or most recent episode manic, severe (HCC) [F31.13]; Cannabis use disorder, severe, dependence (HCC) [F12.20] Discharge Disposition: Discharge to home or self care from Last 3 Months Immunizations Immunization Administration Dates Next Due Tdap 01/16/2024 Medical History Medical History Date Comments Bipolar 1 disorder (HCC) Family History Medical History Relation Name Comments Schizophrenia Paternal Grandfather Relation Name Status Comments Paternal Grandfather Social History Tobacco Use Types Packs/Day Years Used Date Smoking Tobacco: Never Smokeless Tobacco: Current Tobacco Cessation:Ready to Q uit: Not Asked; Counseling Given: Not Answered [facility] Utilities Answer Date Recorded In the past 12 months has e [employer] oil, or water [employer] threatened to shut off services in your [...] Never 07/20/2024 How often do you attend voodoo or anabaptist serv ices? Never 07/20/2024 Do you belong to any clubs o r organizations such as voodoo groups, unions, fraternal or athletic groups, or [...] staff should administer the PHQ-9) 0 07/16/2024 [facility] - Occupational Stress Questionnaire Answer Date Recorded [...] any time in the past 12 m [facility], were you homeless or living in a fdc (including now)? Yes 07/20/2024 Personal Safety Answer [...] on file Legal Sex Male 5:07 PM BACKUP OPERATOR Gender Identity Not on file Sexual Orientation Not on file Obstetrics History Last Filed Vital Signs Vital Sign Reading [...] Mass Index 25.99 08/18/2024 12:44 AM CDT Plan of Treatment Health Maintenance Due Date Last Done Comments Varicella Vaccines (2 of 2 - 2-dose childhood series) 2002 07/01/1999 HPV Vaccines (1 - Male 3-dose series) 2013 Regular Well Visit/Exam 18-64 2016 Influenza Vaccine (Season Ended) 2024 Depression Screening 07/16/2025 07/16/2024, 07/16/2024, 09/30/2023, Additional history exists DTaP/Tdap/Td Vaccine (7 - Td or Tdap) 01/15/2034 01/16/2024, 02/02/2004, 01/03/2000, Additional history exists Hepatitis B Screening Completed 1998, 999 Hepatitis C Screening Completed 10/02/2023 Pneumococcal vaccine <65 Aged Out No longer eligible based on patient's age to complete this topic Procedures Procedure Name Priority Date/Time Associated Diagnosis [...] WITHOUT CONFIRMATION STAT 07/20/2024 4:34 AM CDT [facility]IT[facility] C[facility] ILL/INJURED PATIENT INIT 30-74 MIN Routine 07/19/2024 9:44 PM CDT EGFR STAT 07/19/2024 8:38 PM CDT DIFFERENTIAL AUTO STAT 07/19/2024 8:3 8 PM CDT ETHANOL STAT 07/19/2024 8:38 PM CDT COMPREHENSIVE METABOLIC PANEL STAT 07/19/2024 8:38 PM CDT CBC WITH AUTO DIFFERENTIAL STAT 07/19/2024 8:38 PM CDT [place] CRITICAL CARE ILL/INJURED PATIENT INIT 30-74 MIN [...] AND CULTURE STAT 06/18/2024 2:58 PM CDT [place] CRITICAL CARE ILL/INJURED PATIENT INIT 30-74 MIN [...] of Race in Diagnosing Kidney Disease, JASN 202). The CKD-EPI equation should not be used for patients with unstable renal function and has not been validated in children and those over 70. Current interpretive data was last reviewed 2021. Blood 08/15/2024 10:2 6 AM CDT 08/15/2024 10:40 AM CDT us Kendrick Hassan MD LAB BLOOD ORDERABLES Final Result [facility] Department [place] [address] * (ABNORMAL) Differential, auto (08/15/2024 10:26 AM CDT) Neutrophil abs 7.40(H) 1.50 - 6.50 K/cumm Imm gran abs 0.03 0.00 - 0.10 K/cumm [facility] Lymphocyte abs 1.10 0.80 - 3.30 K/cumm [facility] Monocyte abs 1.08(H) 0.20 - 0.80 K/cumm [facility] Eosinophil abs 0.29 0.00 - 0.50 K/cumm [facility] Basophil abs 0.02 0.00 - 0.10 K/cumm [facility] Neutrophil pct 74.6 % [facility] Comment: Interpretive Data Percent cell count reference ranges are not reported, since discordance with absolute values may lead to misinterpretation of CBC data. Current Interpretive Data was last revised on 2017. Imm gran pct 0.3 % [facility] Comment: Interpretive Data Percent cell count reference ranges are not reported, since discordance with absolute values may lead to misinterpretation of CBC data. Current Interpretive Data was last revised on 2017. Lymphocyte pct 11.1 % [facility] Comment: Interpretive Data Percent cell count reference ranges are not reported, since discordance with absolute values may lead to misinterpretation of CBC data. Current Interpretive Data was last revised on 2017. Monocyte pct 10.9 % [facility] Comment: Interpretive Data Percent cell count reference ranges are not reported, since discordance with absolute values may lead to misinterpretation of CBC data. Current Interpretive Data was last revised on 2017. Eosinophil pct 2.9 % [facility] Comment: Interpretive Data Percent cell count reference ranges are not reported, since discordance with absolute values may lead to misinterpretation of CBC data. Current Interpretive Data was last revised on 2017. Basophil pct 0.2 % [facility] Comment: Interpretive Data Percent cell count reference ranges are not reported, since discordance with absolute values may lead to misinterpretation of CBC data. Current Interpretive Data was last revised on 2017. Blood 08/15/2024 10:2 6 AM CDT 08/15/2024 10:40 AM CDT Kendrick Hassan MD LAB BLOOD ORDERABLES Final Result Performing Organization Address [facility] [place] [address] * Thyroid Function [place] (08/15/2024 10:26 AM CDT) TSH 2.73 0.30 - 4.20 mcIUnit/mL Comment:Reviewed Blood 08/15/2024 10:2 6 AM CDT 08/15/2024 10:36 AM CDT Kendrick Hassan MD LAB BLOOD ORDERABLES Final Result Performing Organization Address [facility] de Phone Number [facility] [place] [address] * (ABNORMAL) Urinalysis reflex to microscopic (08/15/2024 10:26 AM CDT) Color, ur Yellow Yellow Clarity, ur Clear Clear [facility] Specific gravity, ur 1.021 1.003 - 1.030 [facility] pH, urine 7.0 [facility] Comment: Interpretive Data U rine pH is affected by diet, medications, systemic acid-base disturbances, and renal tubular function. pH may affect urinary stone formation. For example, urine pH below 6.0 may help reduce the tendency for calcium phosphate stones and pH greater than 6.0 may reduce the tendency for uric acid stone formation. Source: [facility] [employer] Current Interpretive Data was last revised on 2017 Protein, ur ql Trace Negative [facility] Glucose, ur ql Negative Negative [facility] Ketones, ur Negative Negative [facility] Bilirubin, ur Negative Negative [facility] Blood, ur Negative Negative [facility] Urobilinogen, ur 2.0(A) <2.0 mg/dL [facility] Nitrite, ur Negative Negative [facility] Leukocyte esterase, ur Negative Negative [facility] UA reflex comment Reflex conditions for microscopic UA not met. [facility] Urine 08/15/2024 10:2 6 AM CDT 08/15/2024 10:36 AM CDT us Kendrick Hassan MD LAB URINE ORDERABLES Final Result [facility] Department [place] [address] * (ABNORMAL) CBC with auto differential (08/15/2024 10:26 AM CDT) WBC 9.92(H) 3.80 - 9.90 K/cumm Hgb 12.9(L) 13.0 - 17.5 g/dL [facility] Hct 38.7(L) 38.9 - 50.3 % [facility] Plt 175 150 - 400 K/cumm [facility] MPV 11.3 9.1 - 12.3 fL [facility] RBC 4.40 4.30 - 5.80 M/cumm [facility] MCV 88.0 81.3 - 96.4 fL [facility] MCH 29.3 27.1 - 33.3 pg [facility] MCHC 33.3 32.3 - 35.7 g/dL [facility] RDW CV 12.8 11.1 - 14.9 % [facility] RDW SD 41.1 35.7 - 48.1 fL [facility] NRBC abs 0.00 0.00 - 0.01 K/cumm [facility] Blood Venous blood specimen / Unknown 08/15/2024 10:26 AM CDT 08/15/2024 10:40 AM CDT Kendrick Hassan MD LAB BLOOD ORDERABLES Final Result [facility] Department [place] [address] * (ABNORMAL) Drugs of Abuse Screen, Urine [...] Barbiturates, ur Not Detected CutOff 200ng/mL [facility] Comment: Interpretive Data - Barbiturates: Samples containing greater than 200 ng/mL secobarbital or other cross-reacting barbiturate compounds are reported as positive. False positive and false negative results are possible. Confirmatory testing required for definitive results. Current Interpretive Data was last reviewed 2022. Benzodiazepines, ur Not Detected CutOff 100ng/mL [facility] Comment: Interpretive Data - Benzodiazepines: Samples containing greater than 100 ng/mL nordiazepam or other cross-reacting compounds are reported as positive. False positive and false negative results are possible. Confirmatory testing required for definitive results. Current Interpretive Data was last reviewed 2022. Cannabinoids, ur Screen Positive, presumptive (A) CutOff 50 ng/mL [facility] Comment: Interpretive Data - Cannabinoids: Samples containing greater than 50 ng/mL delta-9 THC -COOH or other cross- reacting compounds are reported as positive. False positive and false negative results are possible. Confirmatory testing required for definitive results. Current Interpretive Data was last reviewed 2022. Cocaine, ur Not Detected CutOff 150ng/mL [facility] Comment: Interpretive Data - Cocaine: Samples containing greater than 150 ng/mL benzoylecgonine or other cross- reacting compounds are reported as positive. False positive and false negative results are possible. Confirmatory testing required for definitive results. Current Interpretive Data was last reviewed 2022. Fentanyl, Ur Not Detected CutOff 5 ng/mL [facility] Comment: Interpretive Data - Fentanyl: Samples containing greater than 5 ng/mL norfentanyl, fentanyl, or other cross-reacting fentanyl compounds are reported as positive. False positive and false negative results are possible. Confirmatory testing required for definitive results. Current Interpretive Data was last reviewed 2023. Methadone, ur Not Detected CutOff 300ng/mL [facility] Comment: Interpretive Data - Methadone: Samples containing greater than 300 ng/mL d,l-methadone or other cross-reacting compounds are reported as positive. False positive and false negative results are possible. Confirmatory testing required for definitive results. Current Interpretive Data was last reviewed 2022. Opiates, ur Not Detected CutOff 300ng/mL [facility] Comment: Interpretive Data - Opiates: Samples containing greater than 300 ng/mL morphine or other cross-reacting compounds are reported as positive. False positive and false negative results are possible. Confirmatory testing required for definitive results. Current Interpretive Data was last reviewed 2022. Oxycodone, ur Not Detected CutOff 100ng/mL [facility] Comment: Interpretive Data - Oxycodone: Samples containing greater than 100 ng/mL oxycodone or other cross-reacting compounds are reported as positive. False positive and false negative results are possible. Confirmatory testing required for definitive results. Current Interpretive Data was last reviewed 2022. Phencyclidine, ur Not Detected CutOff 25 ng/mL [facility] Comment: Interpretive Data - Phencyclidine: Samples containing greater than 25 ng/mL phencyclidine or other cross-reacting compounds are reported as positive. False positive and false negative results are possible. Confirmatory testing required for definitive results. Current Interpretive Data was last reviewed 2022. Urine Creatinine 167 mg/dL [facility] Comment: Interpretive Data Urine Creatinine: < 10 mg/dL is extremely dilute = or > 10 but < 20 mg/dL is dilute = or > 20 mg/dL is normal Current Interpretive Data was last revised on 2017. Urine 08/15/2024 10:2 6 AM CDT 08/15/2024 10:41 AM CDT Narrative [facility] - 08/15/2024 12:25 PM CDT Drug of Abuse screening is performed by immunoassay for medical purposes only. This is not to be used for Pain Management purposes. Kendrick Hassan MD LAB URINE ORDERABLES Final Result Performing Organization Address [facility] Co de Phone Number [facility] [place] [address] * Ethanol (08/15/2024 10:26 AM CDT) Ethanol <10 <=10 mg/dL Comment: Interpretive Data Legal limit of intoxication > or = 80 mg/dL Levels > or = 400 mg/dL are potentially TOXIC. Current interpretive data was last revised on 2018. Blood 08/15/2024 10:2 6 AM CDT 08/15/2024 10:36 AM CDT Kendrick Hassan MD LAB BLOOD ORDERABLES Final Result Performing Organization Address [facility] de Phone Number [facility] [place] [address] * Comprehensive metabolic panel (08/15/2024 10:26 AM CDT) Pathologist [facility] Sodium 144 135 - 145 mmol/L Potassium, pl 3.9 3.3 - 4.9 mmol/L [facility] Chloride 107 97 - 110 mmol/L [facility] CO2 27 22 - 32 mmol/L [facility] Anion gap 10 2 - 15 mmol/L [facility] BUN 9 6 - 25 mg/dL [facility] Creatinine 0.80 0.80 - 1.30 mg/dL [facility] Glucose 98 70 - 199 mg/dL [facility] Comment: Interpretive Data Fasting glucose >/= 126 [...] 2022. Calcium 9.0 8.5 - 10.3 mg/dL [facility] Bilirubin, total 0.4 0.1 - 1.2 mg/dL [facility] Protein, pl 7.1 6.5 - 8.5 g/dL [facility] Albumin 4.3 3.5 - 5.0 g/dL [facility] Alk phos 47 40 - 130 Units/L [facility] ALT 20 7 - 55 Units/L [facility] AST 23 10 - 50 Units/L [facility] Blood 08/15/2024 10:2 6 AM CDT 08/15/2024 10:36 AM CDT us Kendrick Hassan MD LAB BLOOD ORDERABLES Final Result [facility] Department [place] [address] * (ABNORMAL) Differential, auto (08/12/2024 1:27 PM CDT) Neutrophil abs 7.00(H) 1.50 - 6.50 K/cumm Imm gran abs 0.07 0.00 - 0.10 K/cumm [facility] Lymphocyte abs 1.14 0.80 - 3.30 K/cumm [facility] Monocyte abs 0.76 0.20 - 0.80 K/cumm [facility] Eosinophil abs 0.20 0.00 - 0.50 K/cumm [facility] Basophil abs 0.04 0.00 - 0.10 K/cumm [facility] Neutrophil pct 75.9 % [facility] Comment: Interpretive Data Percent cell count reference ranges are not reported, since discordance with absolute values may lead to misinterpretation of CBC data. Current Interpretive Data was last revised on 2017. Imm gran pct 0.8 % [facility] Comment: Interpretive Data Percent cell count reference ranges are not reported, since discordance with absolute values may lead to misinterpretation of CBC data. Current Interpretive Data was last revised on 2017. Lymphocyte pct 12.4 % [facility] Comment: Interpretive Data Percent cell count reference ranges are not reported, since discordance with absolute values may lead to misinterpretation of CBC data. Current Interpretive Data was last revised on 2017. Monocyte pct 8.3 % [facility] Comment: Interpretive Data Percent cell count reference ranges are not reported, since discordance with absolute values may lead to misinterpretation of CBC data. Current Interpretive Data was last revised on 2017. Eosinophil pct 2.2 % [facility] Comment: Interpretive Data Percent cell count reference ranges are not reported, since discordance with absolute values may lead to misinterpretation of CBC data. Current Interpretive Data was last revised on 2017. Basophil pct 0.4 % [facility] Comment: Interpretive Data Percent cell count reference ranges are not reported, since discordance with absolute values may lead to misinterpretation of CBC data. Current Interpretive Data was last revised on 2017. Blood 08/12/2024 1:27 PM CDT 08/12/2024 1:54 PM CDT us Maulik Leary MD LAB BLOOD ORDERABLES Final Result [facility] Department [place] [address] * CBC with auto differential (08/12/2024 1:27 PM CDT) WBC 9.21 3.80 - 9.90 K/cumm Hgb 14.6 13.0 - 17.5 g/dL [facility] Hct 43.3 38.9 - 50.3 % [facility] Plt 179 150 - 400 K/cumm [facility] MPV 11.3 9.1 - 12.3 fL [facility] RBC 4.82 4.30 - 5.80 M/cumm [facility] MCV 89.8 81.3 - 96.4 fL [facility] MCH 30.3 27.1 - 33.3 pg [facility] MCHC 33.7 32.3 - 35.7 g/dL [facility] RDW CV 12.8 11.1 - 14.9 % [facility] RDW SD 41.7 35.7 - 48.1 fL [facility] NRBC abs 0.00 0.00 - 0.01 K/cumm [facility] Blood 08/12/2024 1:27 PM CDT 08/12/2024 1:54 PM CDT Maulik Leary MD LAB BLOOD ORDERABLES Final Result Performing Organization Address City/[facility]/ZIP Co de Phone Number [facility] Department [place] [address] * (ABNORMAL) Clozapine - Clozaril, serum (08/11/2024 11:02 PM CDT) [facility] Clozapine (Clozaril) 275(L) 350 - 600 ng/mL [facility] Norclozapine 65 Not well established ng/mL [facility] Clozapine+Norcloza pine,total 340 Not well established ng/mL [facility] Comment: ADDITIONAL INFORMATION This test was developed and its performance characteristics determined by [facility] in a manner consistent with CLIA requirements. This test has not been cleared or approved by the U.S. Food and Drug Administration. Test Performed by: [facility] [place] [id number] [employer] Instructor: Susan Mohr Ph.D.; CLIA# [id number] Blood 08/11/2024 11:0 2 PM CDT 08/11/2024 11:30 PM CDT Narrative [facility] - 08/14/2024 7:36 PM CDT To be drawn BEFORE patient's evening clozapine dose Maulik Leary MD LAB BLOOD ORDERABLES Final Result Performing Organization Address City/[facility]/ZIP Co de Phone Number [facility] Department [place] [address] [facility] * Valproic acid level, total (08/11/2024 11:02 PM CDT) [facility] Valproic Acid 75.0 50.0 - 100.0 mcg/mL Comment: Interpretive Data Therapeutic or toxic effects of anticonvulsant drugs may occur at different concentrations in different patients and the correlation between dose and clinical effect must be evaluated individually. Current interpretative data was last revised on 13. Blood 08/11/2024 11:0 2 PM CDT 08/11/2024 11:33 PM CDT Narrative [facility] - 08/12/2024 12:02 AM CDT To be taken BEFORE patient's evening depakote dose us Maulik Leary MD LAB BLOOD ORDERABLES Final Result [facility] Department [place] [address] * Differential, auto (08/07/2024 8:29 AM CDT) [facility] Neutrophil abs 3.32 1.50 - 6.50 K/cumm Imm gran abs 0.03 0.00 - 0.10 K/cumm [facility] Lymphocyte abs 1.49 0.80 - 3.30 K/cumm [facility] Monocyte abs 0.51 0.20 - 0.80 K/cumm [facility] Eosinophil abs 0.14 0.00 - 0.50 K/cumm [facility] Basophil abs 0.04 0.00 - 0.10 K/cumm [facility] Neutrophil pct 60.2 % [facility] Comment: Interpretive Data Percent cell count reference ranges are not reported, since discordance with absolute values may lead to misinterpretation of CBC data. Current Interpretive Data was last revised on 2017. Imm gran pct 0.5 % [facility] Comment: Interpretive Data Percent cell count reference ranges are not reported, since discordance with absolute values may lead to misinterpretation of CBC data. Current Interpretive Data was last revised on 2017. Lymphocyte pct 26.9 % [facility] Comment: Interpretive Data Percent cell count reference ranges are not reported, since discordance with absolute values may lead to misinterpretation of CBC data. Current Interpretive Data was last revised on 2017. Monocyte pct 9.2 % [facility] Comment: Interpretive Data Percent cell count reference ranges are not reported, since discordance with absolute values may lead to misinterpretation of CBC data. Current Interpretive Data was last revised on 2017. Eosinophil pct 2.5 % [facility] Comment: Interpretive Data Percent cell count reference ranges are not reported, since discordance with absolute values may lead to misinterpretation of CBC data. Current Interpretive Data was last revised on 2017. Basophil pct 0.7 % [facility] Comment: Interpretive Data Percent cell count reference ranges are not reported, since discordance with absolute values may lead to misinterpretation of CBC data. Current Interpretive Data was last revised on 2017. Blood 08/07/2024 8:29 AM CDT 08/07/2024 10:34 AM CDT us Maulik Leary MD LAB BLOOD ORDERABLES Final Result [facility] Department [place] [address] * CBC with auto differential (08/07/2024 8:29 AM CDT) WBC 5.53 3.80 - 9.90 K/cumm Hgb 15.5 13.0 - 17.5 g/dL [facility] Hct 46.0 38.9 - 50.3 % [facility] Plt 188 150 - 400 K/cumm [facility] MPV 11.2 9.1 - 12.3 fL [facility] RBC 5.12 4.30 - 5.80 M/cumm [facility] MCV 89.8 81.3 - 96.4 fL [facility] MCH 30.3 27.1 - 33.3 pg [facility] MCHC 33.7 32.3 - 35.7 g/dL [facility] RDW CV 12.8 11.1 - 14.9 % [facility] RDW SD 41.7 35.7 - 48.1 fL [facility] NRBC abs 0.00 0.00 - 0.01 K/cumm [facility] Blood 08/07/2024 8:29 AM CDT 08/07/2024 10:34 AM CDT Maulik Leary MD LAB BLOOD ORDERABLES Final Result Performing Organization Address [facility] de Phone Number [facility] Department [place] [address] * (ABNORMAL) Valproic acid level, total (08/07/2024 [...] AM CDT 08/07/2024 10:34 AM CDT Narrative [facility] - 08/07/2024 11:11 AM CDT To be taken BEFORE patient received depakote at 9 am Maulik Leary MD LAB BLOOD ORDERABLES Final Result Performing Organization Address [facility] Co de Phone Number [facility] Department [place] [address] * Differential, auto (07/31/2024 4:36 PM CDT) Neutrophil abs 4.57 1.50 - 6.50 K/cumm Imm gran abs 0.03 0.00 - 0.10 K/cumm [facility] Lymphocyte abs 1.40 0.80 - 3.30 K/cumm [facility] Monocyte abs 0.59 0.20 - 0.80 K/cumm [facility] Eosinophil abs 0.23 0.00 - 0.50 K/cumm [facility] Basophil abs 0.04 0.00 - 0.10 K/cumm [facility] Neutrophil pct 66.6 % [facility] Comment: Interpretive Data Percent cell count reference ranges are not reported, since discordance with absolute values may lead to misinterpretation of CBC data. Current Interpretive Data was last revised on 2017. Imm gran pct 0.4 % [facility] Comment: Interpretive Data Percent cell count reference ranges are not reported, since discordance with absolute values may lead to misinterpretation of CBC data. Current Interpretive Data was last revised on 2017. Lymphocyte pct 20.4 % [facility] Comment: Interpretive Data Percent cell count reference ranges are not reported, since discordance with absolute values may lead to misinterpretation of CBC data. Current Interpretive Data was last revised on 2017. Monocyte pct 8.6 % [facility] Comment: Interpretive Data Percent cell count reference ranges are not reported, since discordance with absolute values may lead to misinterpretation of CBC data. Current Interpretive Data was last revised on 2017. Eosinophil pct 3.4 % [facility] Comment: Interpretive Data Percent cell count reference ranges are not reported, since discordance with absolute values may lead to misinterpretation of CBC data. Current Interpretive Data was last revised on 2017. Basophil pct 0.6 % [facility] Comment: Interpretive Data Percent cell count reference ranges are not reported, since discordance with absolute values may lead to misinterpretation of CBC data. Current Interpretive Data was last revised on 2017. Blood 07/31/2024 4:36 PM CDT 07/31/2024 5:35 PM CDT us Maulik Leary MD LAB BLOOD ORDERABLES Final Result [facility] Department [place] [address] * CBC with auto differential (07/31/2024 4:36 PM CDT) WBC 6.86 3.80 - 9.90 K/cumm Hgb 13.6 13.0 - 17.5 g/dL [facility] Hct 40.0 38.9 - 50.3 % [facility] Plt 208 150 - 400 K/cumm [facility] MPV 11.2 9.1 - 12.3 fL [facility] RBC 4.44 4.30 - 5.80 M/cumm [facility] MCV 90.1 81.3 - 96.4 fL [facility] MCH 30.6 27.1 - 33.3 pg [facility] MCHC 34.0 32.3 - 35.7 g/dL [facility] RDW CV 12.7 11.1 - 14.9 % [facility] RDW SD 42.0 35.7 - 48.1 fL [facility] NRBC abs 0.00 0.00 - 0.01 K/cumm [facility] Blood 07/31/2024 4:36 PM CDT 07/31/2024 5:35 PM CDT Maulik Leary MD LAB BLOOD ORDERABLES Final Result [facility] Department [place] [address] * Valproic acid level, total (07/28/2024 9:47 PM CDT) [facility] Valproic Acid 83.0 50.0 - 100.0 mcg/mL Comment: Repeated and Verified Interpretive Data Therapeutic or toxic effects of anticonvulsant drugs may occur at different concentrations in different patients and the correlation between dose and clinical effect must be evaluated individually. Current interpretative data was last revised on 13. Blood 07/28/2024 9:47 PM CDT 07/28/2024 10:45 PM CDT Narrative [facility] - 07/28/2024 11:49 PM CDT Please take this level BEFORE patient gets his evening depakote dose Maulik Leary MD LAB BLOOD ORDERABLES Final Result Performing Organization Address [facility] Co de Phone Number [facility] Department [place] [address] * Urinalysis reflex to microscopic (07/20/2024 4:34 AM CDT) Color, ur Straw Yellow Clarity, ur Clear Clear [facility] Specific gravity, ur 1.016 1.003 - 1.030 [facility] pH, urine 6.5 [facility] Comment: Interpretive Data U rine pH is affected by diet, medications, systemic acid-base disturbances, and renal tubular function. pH may affect urinary stone formation. For example, urine pH below 6.0 may help reduce the tendency for calcium phosphate stones and pH greater than 6.0 may reduce the tendency for uric acid stone formation. Source: [facility] Current Interpretive Data was last revised on 2017 Protein, ur ql Negative Negative [facility] Glucose, ur ql Negative Negative [facility] Ketones, ur Negative Negative [facility] Bilirubin, ur Negative Negative [facility] Blood, ur Negative Negative [facility] Urobilinogen, ur <2.0 <2.0 mg/dL [facility] Nitrite, ur Negative Negative [facility] Leukocyte esterase, ur Negative Negative [facility] UA reflex comment Reflex conditions for microscopic UA not met. [facility] Urine 07/20/2024 4:34 AM CDT 07/20/2024 4:41 AM CDT Norma Ly NP LAB URINE ORDERABLES Nelida l Result Performing Organization Address [facility] Co de Phone Number [facility] Department [place] [address] * (ABNORMAL) Drugs of Abuse Screen, Urine without Confirmation (07/20/2024 4:34 AM CDT) Amphetamine, ur Not Detected CutOff [...] Barbiturates, ur Not Detected CutOff 200ng/mL [facility] Comment: Interpretive Data - Barbiturates: Samples containing greater than 200 ng/mL secobarbital or other cross-reacting barbiturate compounds are reported as positive. False positive and false negative results are possible. Confirmatory testing required for definitive results. Current Interpretive Data was last reviewed 2022. Benzodiazepines, ur Not Detected CutOff 100ng/mL [facility] Comment: Interpretive Data - Benzodiazepines: Samples containing greater than 100 ng/mL nordiazepam or other cross-reacting compounds are reported as positive. False positive and false negative results are possible. Confirmatory testing required for definitive results. Current Interpretive Data was last reviewed 2022. Cannabinoids, ur Screen Positive, presumptive (A) CutOff 50 ng/mL [facility] Comment: Interpretive Data - Cannabinoids: Samples containing greater than 50 ng/mL delta-9 THC -COOH or other cross- reacting compounds are reported as positive. False positive and false negative results are possible. Confirmatory testing required for definitive results. Current Interpretive Data was last reviewed 2022. Cocaine, ur Not Detected CutOff 150ng/mL [facility] Comment: Interpretive Data - Cocaine: Samples containing greater than 150 ng/mL benzoylecgonine or other cross- reacting compounds are reported as positive. False positive and false negative results are possible. Confirmatory testing required for definitive results. Current Interpretive Data was last reviewed 2022. Fentanyl, Ur Not Detected CutOff 5 ng/mL [facility] Comment: Interpretive Data - Fentanyl: Samples containing greater than 5 ng/mL norfentanyl, fentanyl, or other cross-reacting fentanyl compounds are reported as positive. False positive and false negative results are possible. Confirmatory testing required for definitive results. Current Interpretive Data was last reviewed 2023. Methadone, ur Not Detected CutOff 300ng/mL [facility] Comment: Interpretive Data - Methadone: Samples containing greater than 300 ng/mL d,l-methadone or other cross-reacting compounds are reported as positive. False positive and false negative results are possible. Confirmatory testing required for definitive results. Current Interpretive Data was last reviewed 2022. Opiates, ur Not Detected CutOff 300ng/mL [facility] Comment: Interpretive Data - Opiates: Samples containing greater than 300 ng/mL morphine or other cross-reacting compounds are reported as positive. False positive and false negative results are possible. Confirmatory testing required for definitive results. Current Interpretive Data was last reviewed 2022. Oxycodone, ur Not Detected CutOff 100ng/mL [facility] Comment: Interpretive Data - Oxycodone: Samples containing greater than 100 ng/mL oxycodone or other cross-reacting compounds are reported as positive. False positive and false negative results are possible. Confirmatory testing required for definitive results. Current Interpretive Data was last reviewed 2022. Phencyclidine, ur Not Detected CutOff 25 ng/mL [facility] Comment: Interpretive Data - Phencyclidine: Samples containing greater than 25 ng/mL phencyclidine or other cross-reacting compounds are reported as positive. False positive and false negative results are possible. Confirmatory testing required for definitive results. Current Interpretive Data was last reviewed 2022. Urine Creatinine 146 mg/dL [facility] Comment: Interpretive Data Urine Creatinine: < 10 mg/dL is extremely dilute = or > 10 but < 20 mg/dL is dilute = or > 20 mg/dL is normal Current Interpretive Data was last revised on 2017. Urine 07/20/2024 4:34 AM CDT 07/20/2024 4:41 AM CDT Narrative [facility] - 07/20/2024 6:03 AM CDT Drug of Abuse screening is performed by immunoassay for medical purposes only. This is not to be used for Pain Management purposes. us Norma Ly NP LAB URINE ORDERABLES Nelida walter Result [facility] Department [place] [address] * [place] CRITICAL CARE ILL/INJURED PATIENT INIT 30-74 MIN (07/19/2024 9:44 PM CDT) Narrative Norma Ly NP - 07/19/2024 9:44 PM CDT oNrma Ly NP 07/19/2024 9:44 PM Critical Care [...] us Guero Tellez MD IN CLINIC/BEDSIDE UMESH WHITE Final Result * eGFR (07/19/2024 8:38 PM [...] NP LAB BLOOD ORDERABLES Nelida walter Result [facility] Department [place] [address] * (ABNORMAL) Differential, auto (07/19/2024 8:38 PM CDT) Neutrophil abs 8.39(H) 1.50 - 6.50 K/cumm Imm gran abs 0.04 0.00 - 0.10 K/cumm [facility] Lymphocyte abs 1.79 0.80 - 3.30 K/cumm [facility] Monocyte abs 0.93(H) 0.20 - 0.80 K/cumm [facility] Eosinophil abs 0.10 0.00 - 0.50 K/cumm [facility] Basophil abs 0.08 0.00 - 0.10 K/cumm [facility] Neutrophil pct 74.0 % [facility] Comment: Interpretive Data Percent cell count reference ranges are not reported, since discordance with absolute values may lead to misinterpretation of CBC data. Current Interpretive Data was last revised on 2017. Imm gran pct 0.4 % [facility] Comment: Interpretive Data Percent cell count reference ranges are not reported, since discordance with absolute values may lead to misinterpretation of CBC data. Current Interpretive Data was last revised on 2017. Lymphocyte pct 15.8 % [facility] Comment: Interpretive Data Percent cell count reference ranges are not reported, since discordance with absolute values may lead to misinterpretation of CBC data. Current Interpretive Data was last revised on 2017. Monocyte pct 8.2 % [facility] Comment: Interpretive Data Percent cell count reference ranges are not reported, since discordance with absolute values may lead to misinterpretation of CBC data. Current Interpretive Data was last revised on 2017. Eosinophil pct 0.9 % [facility] Comment: Interpretive Data Percent cell count reference ranges are not reported, since discordance with absolute values may lead to misinterpretation of CBC data. Current Interpretive Data was last revised on 2017. Basophil pct 0.7 % [facility] Comment: Interpretive Data Percent cell count reference ranges are not reported, since discordance with absolute values may lead to misinterpretation of CBC data. Current Interpretive Data was last revised on 2017. Blood 07/19/2024 8:38 PM CDT 07/19/2024 8:50 PM CDT us Norma Ly [employer] LAB BLOOD ORDERABLES Nelida l Result [facility] Department [place] [address] * (ABNORMAL) CBC with auto differential (07/19/2024 8:38 PM CDT) WBC 11.33(H) 3.80 - 9.90 K/cumm Hgb 13.9 13.0 - 17.5 g/dL [facility] Hct 40.9 38.9 - 50.3 % [facility] Plt 251 150 - 400 K/cumm [facility] MPV 11.4 9.1 - 12.3 fL [facility] RBC 4.66 4.30 - 5.80 M/cumm [facility] MCV 87.8 81.3 - 96.4 fL [facility] MCH 29.8 27.1 - 33.3 pg [facility] MCHC 34.0 32.3 - 35.7 g/dL [facility] RDW CV 13.0 11.1 - 14.9 % [facility] RDW SD 41.4 35.7 - 48.1 fL [facility] NRBC abs 0.00 0.00 - 0.01 K/cumm [facility] Blood Venous blood specimen / Unknown 07/19/2024 8:38 PM CDT 07/19/2024 8:50 PM CDT Norma Ly NP LAB BLOOD ORDERABLES Nelida l Result Performing Organization Address [facility] de Phone Number [facility] Department [place] [address] * Ethanol (07/19/2024 8:38 PM CDT) Pathologist [facility] Ethanol <10 <=10 mg/dL Comment: Interpretive Data Legal limit of intoxication > or = 80 mg/dL Levels > or = 400 mg/dL are potentially TOXIC. Current interpretive data was last revised on 2018. Blood 07/19/2024 8:38 PM CDT 07/19/2024 8:50 PM CDT Norma Nieto Malachi NP LAB BLOOD ORDERABLES Nelida l Result Performing Organization Address [facility] de Phone Number [facility] Department [place] [address] * Comprehensive metabolic panel (07/19/2024 8:38 PM CDT) [facility] Sodium 140 135 - 145 mmol/L Potassium, pl 3.9 3.3 - 4.9 mmol/L [facility] Chloride 103 97 - 110 mmol/L [facility] CO2 24 22 - 32 mmol/L [facility] Anion gap 13 2 - 15 mmol/L [facility] BUN 9 6 - 25 mg/dL [facility] Creatinine 0.89 0.80 - 1.30 mg/dL [facility] Glucose 90 70 - 199 mg/dL [facility] Comment: Interpretive Data Fasting glucose >/= 126 [...] 2022. Calcium 9.7 8.5 - 10.3 mg/dL [facility] Bilirubin, total 1.0 0.1 - 1.2 mg/dL [facility] Protein, pl 7.6 6.5 - 8.5 g/dL [facility] Albumin 4.6 3.5 - 5.0 g/dL [facility] Alk phos 67 40 - 130 Units/L [facility] ALT 23 7 - 55 Units/L [facility] AST 37 10 - 50 Units/L [facility] Blood 07/19/2024 8:38 PM CDT 07/19/2024 8:50 PM CDT us Norma Ly NP LAB BLOOD ORDERABLES Nelida walter Result [facility] Department [place] [address] * [place] CRITICAL CARE ILL/INJURED PATIENT INIT 30-74 MIN [...] ur Straw Yellow Clarity, ur Clear Clear [facility] Specific gravity, ur 1.015 1.003 - 1.030 [facility] pH, urine 6.0 [facility] Comment: Interpretive Data U rine pH is affected by diet, medications, systemic acid-base disturbances, and renal tubular function. pH may affect urinary stone formation. For example, urine pH below 6.0 may help reduce the tendency for calcium phosphate stones and pH greater than 6.0 may reduce the tendency for uric acid stone formation. Source: [facility] Current Interpretive Data was last revised on 2017 Protein, ur ql Trace Negative [facility] Glucose, ur ql Negative Negative [facility] Ketones, ur Negative Negative [facility] Bilirubin, ur Negative Negative [facility] Blood, ur Negative Negative [facility] Urobilinogen, ur <2.0 <2.0 mg/dL [facility] Nitrite, ur Negative Negative [facility] Leukocyte esterase, ur Negative Negative [facility] UA reflex comment Reflex conditions for microscopic UA and culture not met. [facility] Urine 07/16/2024 2:26 AM CDT 07/16/2024 2:35 AM CDT Rosalio Balbuena MD LAB MICROBIOLOGY - GENERAL ORDERABLES Final Result [facility] Department [place] [address] * (ABNORMAL) Drugs of Abuse Screen, Urine without Confirmation (07/16/2024 2:26 AM CDT) Amphetamine, ur Not Detected CutOff [...] Barbiturates, ur Not Detected CutOff 200ng/mL [facility] Comment: Interpretive Data - Barbiturates: Samples containing greater than 200 ng/mL secobarbital or other cross-reacting barbiturate compounds are reported as positive. False positive and false negative results are possible. Confirmatory testing required for definitive results. Current Interpretive Data was last reviewed 2022. Benzodiazepines, ur Not Detected CutOff 100ng/mL [facility] Comment: Interpretive Data - Benzodiazepines: Samples containing greater than 100 ng/mL nordiazepam or other cross-reacting compounds are reported as positive. False positive and false negative results are possible. Confirmatory testing required for definitive results. Current Interpretive Data was last reviewed 2022. Cannabinoids, ur Screen Positive, presumptive (A) CutOff 50 ng/mL [facility] Comment: Interpretive Data - Cannabinoids: Samples containing greater than 50 ng/mL delta-9 THC -COOH or other cross- reacting compounds are reported as positive. False positive and false negative results are possible. Confirmatory testing required for definitive results. Current Interpretive Data was last reviewed 2022. Cocaine, ur Not Detected CutOff 150ng/mL [facility] Comment: Interpretive Data - Cocaine: Samples containing greater than 150 ng/mL benzoylecgonine or other cross- reacting compounds are reported as positive. False positive and false negative results are possible. Confirmatory testing required for definitive results. Current Interpretive Data was last reviewed 2022. Fentanyl, Ur Not Detected CutOff 5 ng/mL [facility] Comment: Interpretive Data - Fentanyl: Samples containing greater than 5 ng/mL norfentanyl, fentanyl, or other cross-reacting fentanyl compounds are reported as positive. False positive and false negative results are possible. Confirmatory testing required for definitive results. Current Interpretive Data was last reviewed 2023. Methadone, ur Not Detected CutOff 300ng/mL [facility] Comment: Interpretive Data - Methadone: Samples containing greater than 300 ng/mL d,l-methadone or other cross-reacting compounds are reported as positive. False positive and false negative results are possible. Confirmatory testing required for definitive results. Current Interpretive Data was last reviewed 2022. Opiates, ur Not Detected CutOff 300ng/mL [facility] Comment: Interpretive Data - Opiates: Samples containing greater than 300 ng/mL morphine or other cross-reacting compounds are reported as positive. False positive and false negative results are possible. Confirmatory testing required for definitive results. Current Interpretive Data was last reviewed 2022. Oxycodone, ur Not Detected CutOff 100ng/mL [facility] Comment: Interpretive Data - Oxycodone: Samples containing greater than 100 ng/mL oxycodone or other cross-reacting compounds are reported as positive. False positive and false negative results are possible. Confirmatory testing required for definitive results. Current Interpretive Data was last reviewed 2022. Phencyclidine, ur Not Detected CutOff 25 ng/mL [facility] Comment: Interpretive Data - Phencyclidine: Samples containing greater than 25 ng/mL phencyclidine or other cross-reacting compounds are reported as positive. False positive and false negative results are possible. Confirmatory testing required for definitive results. Current Interpretive Data was last reviewed 2022. Urine Creatinine 136 mg/dL [facility] Comment: Interpretive Data Urine Creatinine: < 10 mg/dL is extremely dilute = or > 10 but < 20 mg/dL is dilute = or > 20 mg/dL is normal Current Interpretive Data was last revised on 2017. Urine 07/16/2024 2:26 AM CDT 07/16/2024 2:41 AM CDT Narrative [facility] - 07/16/2024 3:13 AM CDT Drug of Abuse screening is performed by immunoassay for medical purposes only. This is not to be used for Pain Management purposes. us Rosalio Balbuena MD LAB URINE ORDERA BLES Final Result [facility] Department [place] [address] * POCT Rapid HIV Antibody Community Screening-Yasmin Eligible (07/16/2024 2:07 AM CDT) [facility] Rapid HIV, POC Negative Negative Lot Number [id number] QC Control Line Acceptable Blood 07/16/2024 2:07 AM CDT Rosalio Balbuena MD POINT OF CARE TE ST ORDERABLES Final Result * eGFR (07/16/2024 12:46 AM CDT) [facility] eGFR >90 >=60 mL/min/1. 73 m2 Comment: [...] MD LAB BLOOD ORDERA BLES Final Result [facility] Department [place] [address] * (ABNORMAL) Differential, auto (07/16/2024 12:46 AM CDT) [facility] Neutrophil abs 9.35(H) 1.50 - 6.50 K/cumm Imm gran abs 0.08 0.00 - 0.10 K/cumm [facility] Lymphocyte abs 1.74 0.80 - 3.30 K/cumm [facility] Monocyte abs 1.12(H) 0.20 - 0.80 K/cumm [facility] Eosinophil abs 0.28 0.00 - 0.50 K/cumm [facility] Basophil abs 0.05 0.00 - 0.10 K/cumm [facility] Neutrophil pct 74.1 % [facility] Comment: Interpretive Data Percent cell count reference ranges are not reported, since discordance with absolute values may lead to misinterpretation of CBC data. Current Interpretive Data was last revised on 2017. Imm gran pct 0.6 % [facility] Comment: Interpretive Data Percent cell count reference ranges are not reported, since discordance with absolute values may lead to misinterpretation of CBC data. Current Interpretive Data was last revised on 2017. Lymphocyte pct 13.8 % [facility] Comment: Interpretive Data Percent cell count reference ranges are not reported, since discordance with absolute values may lead to misinterpretation of CBC data. Current Interpretive Data was last revised on 2017. Monocyte pct 8.9 % [facility] Comment: Interpretive Data Percent cell count reference ranges are not reported, since discordance with absolute values may lead to misinterpretation of CBC data. Current Interpretive Data was last revised on 2017. Eosinophil pct 2.2 % [facility] Comment: Interpretive Data Percent cell count reference ranges are not reported, since discordance with absolute values may lead to misinterpretation of CBC data. Current Interpretive Data was last revised on 2017. Basophil pct 0.4 % [facility] Comment: Interpretive Data Percent cell count reference ranges are not reported, since discordance with absolute values may lead to misinterpretation of CBC data. Current Interpretive Data was last revised on 2017. Blood 07/16/2024 12:4 6 AM CDT 07/16/2024 12:55 AM CDT us Rosalio Balbuena MD LAB BLOOD ORDERA BLES Final Result [facility] Department [place] [address] * Thyroid Function [place] (07/16/2024 12:46 AM CDT) [facility] TSH 1.01 0.30 - 4.20 mcIUnit/mL Blood 07/16/2024 12:4 6 AM CDT 07/16/2024 12:55 AM CDT Rosalio Balbuena MD LAB BLOOD ORDERA BLES Final Result [facility] Department [place] [address] * (ABNORMAL) CBC with auto differential (07/16/2024 12:46 AM CDT) [facility] WBC 12.62(H) 3.80 - 9.90 K/cumm Hgb 13.9 13.0 - 17.5 g/dL [facility] Hct 41.1 38.9 - 50.3 % [facility] Plt 216 150 - 400 K/cumm [facility] MPV 11.1 9.1 - 12.3 fL [facility] RBC 4.56 4.30 - 5.80 M/cumm [facility] MCV 90.1 81.3 - 96.4 fL [facility] MCH 30.5 27.1 - 33.3 pg [facility] MCHC 33.8 32.3 - 35.7 g/dL [facility] RDW CV 13.2 11.1 - 14.9 % [facility] RDW SD 43.3 35.7 - 48.1 fL [facility] NRBC abs 0.00 0.00 - 0.01 K/cumm [facility] Blood Venous blood specimen / Unknown 07/16/2024 12:46 AM CDT 07/16/2024 12:55 AM CDT Rosalio Balbuena MD LAB BLOOD ORDERA BLES Final Result [facility] [place] [address] * Ethanol (07/16/2024 12:46 AM CDT) Ethanol <10 <=10 mg/dL Comment: Interpretive Data Legal limit of intoxication > or = 80 mg/dL Levels > or = 400 mg/dL are potentially TOXIC. Current interpretive data was last revised on 2018. Blood 07/16/2024 12:4 6 AM CDT 07/16/2024 12:55 AM CDT Rosalio Balbuena MD LAB BLOOD ORDERA BLES Final Result Performing Organization Address City/[facility] Co de Phone Number [facility] [place] [address] * (ABNORMAL) Valproic acid level, total (07/16/2024 12:46 AM CDT) Pathologist [facility] Valproic Acid <15.0(L) 50.0 - 100.0 mcg/mL [...] MD LAB BLOOD ORDERA BLES Final Result [facility] [place] [address] * Comprehensive metabolic panel (07/16/2024 12:46 AM CDT) Pathologist [facility] Sodium 142 135 - 145 mmol/L Potassium, pl 4.5 3.3 - 4.9 mmol/L [facility] Chloride 106 97 - 110 mmol/L [facility] CO2 27 22 - 32 mmol/L [facility] Anion gap 9 2 - 15 mmol/L [facility] BUN 9 6 - 25 mg/dL [facility] Creatinine 1.01 0.80 - 1.30 mg/dL [facility] Glucose 117 70 - 199 mg/dL [facility] Comment: Interpretive Data Fasting glucose >/= 126 [...] 2022. Calcium 9.7 8.5 - 10.3 mg/dL [facility] Bilirubin, total 0.5 0.1 - 1.2 mg/dL [facility] Protein, pl 7.6 6.5 - 8.5 g/dL [facility] Albumin 4.5 3.5 - 5.0 g/dL [facility] Alk phos 65 40 - 130 Units/L [facility] ALT 21 7 - 55 Units/L [facility] AST 28 10 - 50 Units/L [facility] Blood 07/16/2024 12:4 6 AM CDT 07/16/2024 12:55 AM CDT Rosalio Balbuena MD LAB BLOOD ORDERA BLES Final Result [facility] Department [place] [address] * XR Hand Right 3 or More [...] AM - Electronically signed by Bebeto Rosario M.D., KT: TALYA Report ID: [id number] Reading Location: [id number] Procedure Note Bebeto Rosario MD - 07/11/2024 [...] Bebeto Rosario M.D. KT: TALYA Report ID: [id number] Reading Location: [place] [address] us Eduin Ruth MD IMG XR PROCEDURES Final [...] tendency for uric acid stone formation. Source: [facility] [employer] Current Interpretive Data was last revised on [...] PM CDT 07/10/2024 4:28 PM CDT us Manuela Suarez MD LAB MICROBIOLOGY - GENERA L ORDERABLES Final Result [facility] Department [place] [address] * (ABNORMAL) Drugs of Abuse Screen, Urine without Confirmation (07/10/2024 4:25 PM CDT) Pathologist [facility] Amphetamine, ur Not Detected CutOff 500ng/mL Comment: [...] Opiates, ur Not Detected CutOff 300ng/mL [facility] ([place]) Comment: Interpretive Data - Opiates: Samples containing greater than 300 ng/mL morphine or other cross-reacting compounds are reported as positive. False positive and false negative results are possible. Confirmatory testing required for definitive results. Current Interpretive Data was last reviewed 2022. Oxycodone, ur Not Detected CutOff 100ng/mL [facility] ([place]) Comment: Interpretive Data - Oxycodone: [...] last reviewed 2022. Urine Creatinine 28 mg/dL [facility] ([place]) Comment: Interpretive Data Urine Creatinine: < 10 mg/dL is extremely dilute = or > 10 but < 20 mg/dL is dilute = or > 20 mg/dL is normal Current Interpretive Data was last revised on 2017. Urine 07/10/2024 4:25 PM CDT 07/10/2024 4:28 PM CDT Manuela Suarez MD LAB URINE ORDERABLES Nelida walter Result [facility] ([place] 1 [facility] Department [place] [address] * COVID-19 Coronavirus RNA Nasopharyngeal (07/10/2024 2:49 PM CDT) COVID-19 RNA Negative Negative Nasopharyngeal 07/10/2024 2: 49 PM CDT 07/10/2024 2:52 PM CDT Narrative [facility] ([place] - 07/10/2024 3:26 PM CDT Is the patient experiencing any symptoms consistent with COVID (eg. Fever, cough, shortness of breath)?->No What is the reason for testing?->Screening prior to Behavioral health admission Interpretive data: Testing performed by [facility]. This test is performed using the [facility] Xpert Xpress CoV-2 plus assay. This is a real-time RT-PCR test intended for the qualitative detection of nucleic acid from the SARS-CoV-2. This assay has been cleared by the [place] Food and Drug administration. The performance characteristics have been verified by [facility]. Results must be considered in the clinical context, and a negative result does not rule out infection. Interpretive data last revised 2023. Interpretive data: Testing performed by [facility]. This test is performed using the [facility] [facility] Xpert Xpress CoV-2 plus assay. This is a real-time RT-PCR test intended for the qualitative detection of nucleic acid from the SARS-CoV-2. This assay has been cleared by the [place] Food and Drug administration. The performance characteristics have been verified by [facility]. Results must be considered in the clinical context, and a negative result does not rule out infection. Interpretive data last revised 2023. us Manuela Suarez MD LAB MICROBIOLOGY - GENERA L ORDERABLES Final Result [facility] ([place]) 1 [facility] Department [place] [address] * eGFR (07/10/2024 2:46 PM CDT) eGFR >90 >=60 mL/min/1. 73 [...] MD LAB BLOOD ORDERABLES Nelida l Result [facility] ([place]) 1 [facility] Department [place] [address] * (ABNORMAL) Differential, auto (07/10/2024 2:46 PM CDT) Neutrophil abs 6.18 1.50 - 6.50 K/cumm [...] LAB BLOOD ORDERABLES Nelida walter Result [facility] ([place]) 1 [facility] Department [place] [address] * CBC with auto differential (07/10/2024 2:46 PM CDT) WBC 9.24 3.80 - 9.90 K/cumm Hgb 13.4 13.0 - 17.5 g/dL [facility] ([place] Hct 39.1 38.9 - 50.3 % [facility] ([place]) Plt 263 150 - 400 K/cumm [facility] ([place]) MPV 10.5 9.1 - 12.3 fL [facility] ([place]) RBC 4.40 4.30 - 5.80 M/cumm [facility] ([place]) MCV 88.9 81.3 - 96.4 fL [facility] ([place]) MCH 30.5 27.1 - 33.3 pg [facility] ([place]) MCHC 34.3 32.3 - 35.7 g/dL [facility] ([place]) RDW CV 13.2 11.1 - 14.9 % [facility] ([place]) RDW SD 42.8 35.7 - 48.1 fL [facility] ([place]) NRBC abs 0.00 0.00 - 0.01 K/cumm [facility] ([place]) Blood 07/10/2024 2:46 PM CDT 07/10/2024 2:52 PM CDT Manuela Suarez MD LAB BLOOD ORDERABLES Nelida l Result Performing Organization Address [facility] Co de Phone Number [facility] ([place]) 1 [facility] [place] [address] * Ethanol (07/10/2024 2:46 PM CDT) Ethanol <10 <=10 mg/dL Comment: Interpretive Data Legal limit of intoxication > or = 80 mg/dL Levels > or = 400 mg/dL are potentially TOXIC. Current interpretive data was last revised on 2018. Blood 07/10/2024 2:46 PM CDT 07/10/2024 2:52 PM CDT Manuela Suarez MD LAB BLOOD ORDERABLES Nelida l Result Performing Organization Address [facility] Co de Phone Number [facility] ([place]) 1 [facility] [place] [address] * Comprehensive metabolic panel (07/10/2024 2:46 PM [...] MD LAB BLOOD ORDERABLES Nelida walter Result [facility] 1 [facility] Department [place] [address] * Urinalysis reflex to microscopic (06/29/2024 6:16 AM CDT) Color, ur Straw Yellow Clarity, ur Clear Clear [facility] Specific gravity, ur 1.006 1.003 - 1.030 [facility] pH, urine 7.0 [facility] Comment: Interpretive Data U rine pH is affected by diet, medications, systemic acid-base disturbances, and renal tubular function. pH may affect urinary stone formation. For example, urine pH below 6.0 may help reduce the tendency for calcium phosphate stones and pH greater than 6.0 may reduce the tendency for uric acid stone formation. Source: [facility] Current Interpretive Data was last revised on 2017 Protein, ur ql Negative Negative [facility] Glucose, ur ql Negative Negative [facility] Ketones, ur Negative Negative [facility] Bilirubin, ur Negative Negative [facility] Blood, ur Negative Negative [facility] Urobilinogen, ur <2.0 <2.0 mg/dL [facility] Nitrite, ur Negative Negative [facility] Leukocyte esterase, ur Negative Negative [facility] UA reflex comment Reflex conditions for microscopic UA not met. [facility] Urine 06/29/2024 6:16 AM CDT 06/29/2024 6:26 AM CDT Lyndsay Sal MD LAB URINE ORDERABLES Final Result [facility] Department [place] [address] * (ABNORMAL) Drugs of Abuse Screen, Urine [...] 2022. Barbiturates, ur Not Detected CutOff 200ng/mL [facility] Comment: Interpretive Data - Barbiturates: Samples containing greater than 200 ng/mL secobarbital or other cross-reacting barbiturate compounds are reported as positive. False positive and false negative results are possible. Confirmatory testing required for definitive results. Current Interpretive Data was last reviewed 2022. Benzodiazepines, ur Not Detected CutOff 100ng/mL [facility] Comment: Interpretive Data - Benzodiazepines: Samples containing greater than 100 ng/mL nordiazepam or other cross-reacting compounds are reported as positive. False positive and false negative results are possible. Confirmatory testing required for definitive results. Current Interpretive Data was last reviewed 2022. Cannabinoids, ur Screen Positive, presumptive (A) CutOff 50 ng/mL [facility] Comment: Interpretive Data - Cannabinoids: Samples containing greater than 50 ng/mL delta-9 THC -COOH or other cross- reacting compounds are reported as positive. False positive and false negative results are possible. Confirmatory testing required for definitive results. Current Interpretive Data was last reviewed 2022. Cocaine, ur Not Detected CutOff 150ng/mL [facility] Comment: Interpretive Data - Cocaine: Samples containing greater than 150 ng/mL benzoylecgonine or other cross- reacting compounds are reported as positive. False positive and false negative results are possible. Confirmatory testing required for definitive results. Current Interpretive Data was last reviewed 2022. Fentanyl, Ur Not Detected CutOff 5 ng/mL [facility] Comment: Interpretive Data - Fentanyl: Samples containing greater than 5 ng/mL norfentanyl, fentanyl, or other cross-reacting fentanyl compounds are reported as positive. False positive and false negative results are possible. Confirmatory testing required for definitive results. Current Interpretive Data was last reviewed 2023. Methadone, ur Not Detected CutOff 300ng/mL [facility] Comment: Interpretive Data - Methadone: Samples containing greater than 300 ng/mL d,l-methadone or other cross-reacting compounds are reported as positive. False positive and false negative results are possible. Confirmatory testing required for definitive results. Current Interpretive Data was last reviewed 2022. Opiates, ur Not Detected CutOff 300ng/mL [facility] Comment: Interpretive Data - Opiates: Samples containing greater than 300 ng/mL morphine or other cross-reacting compounds are reported as positive. False positive and false negative results are possible. Confirmatory testing required for definitive results. Current Interpretive Data was last reviewed 2022. Oxycodone, ur Not Detected CutOff 100ng/mL [facility] Comment: Interpretive Data - Oxycodone: Samples containing greater than 100 ng/mL oxycodone or other cross-reacting compounds are reported as positive. False positive and false negative results are possible. Confirmatory testing required for definitive results. Current Interpretive Data was last reviewed 2022. Phencyclidine, ur Not Detected CutOff 25 ng/mL [facility] Comment: Interpretive Data - Phencyclidine: Samples containing greater than 25 ng/mL phencyclidine or other cross-reacting compounds are reported as positive. False positive and false negative results are possible. Confirmatory testing required for definitive results. Current Interpretive Data was last reviewed 2022. Urine Creatinine 36 mg/dL [facility] Comment: Interpretive Data Urine Creatinine: < 10 mg/dL is extremely dilute = or > 10 but < 20 mg/dL is dilute = or > 20 mg/dL is normal Current Interpretive Data was last revised on 2017. Urine 06/29/2024 6:16 AM CDT 06/29/2024 6:28 AM CDT Narrative [facility] - 06/29/2024 7:02 AM CDT Drug of Abuse screening is performed by immunoassay for medical purposes only. This is not to be used for Pain Management purposes. us Lyndsay Sal MD LAB URINE ORDERABLES Final Result [facility] Department [place] [address] * eGFR (06/29/2024 5:39 AM CDT) eGFR [...] AM CDT 06/29/2024 6:12 AM CDT us Roosevelt ROSE LAB BLOOD ORDERABLES F inal Result [facility] Department [place] [address] * (ABNORMAL) Differential, auto (06/29/2024 5:39 AM CDT) Pathologist [facility] Neutrophil abs 7.7(H) 1.5 - 6.5 K/cumm Imm gran abs 0.1 0.0 - 0.1 K/cumm [facility] Lymphocyte abs 1.5 0.8 - 3.3 K/cumm [facility] Monocyte abs 1.4(H) 0.2 - 0.8 K/cumm [facility] Eosinophil abs 0.2 0.0 - 0.5 K/cumm [facility] Basophil abs 0.1 0.0 - 0.1 K/cumm [facility] Neutrophil pct 70.7 % [facility] Comment: Interpretive Data Percent cell count reference ranges are not reported, since discordance with absolute values may lead to misinterpretation of CBC data. Current Interpretive Data was last revised on 2017. Imm gran pct 0.6 % [facility] Comment: Interpretive Data Percent cell count reference ranges are not reported, since discordance with absolute values may lead to misinterpretation of CBC data. Current Interpretive Data was last revised on 2017. Lymphocyte pct 13.7 % [facility] Comment: Interpretive Data Percent cell count reference ranges are not reported, since discordance with absolute values may lead to misinterpretation of CBC data. Current Interpretive Data was last revised on 2017. Monocyte pct 12.5 % [facility] Comment: Interpretive Data Percent cell count reference ranges are not reported, since discordance with absolute values may lead to misinterpretation of CBC data. Current Interpretive Data was last revised on 2017. Eosinophil pct 1.9 % [facility] Comment: Interpretive Data Percent cell count reference ranges are not reported, since discordance with absolute values may lead to misinterpretation of CBC data. Current Interpretive Data was last revised on 2017. Basophil pct 0.6 % [facility] Comment: Interpretive Data Percent cell count reference ranges are not reported, since discordance with absolute values may lead to misinterpretation of CBC data. Current Interpretive Data was last revised on 2017. Blood 06/29/2024 5:39 AM CDT 06/29/2024 5:52 AM CDT Roosevelt ROSE LAB BLOOD ORDERABLES F inal Result [facility] Department [place] [address] * (ABNORMAL) CBC with auto differential (06/29/2024 5:39 AM CDT) WBC 10.8(H) 3.8 - 9.9 K/cumm Hgb 14.7 13.0 - 17.5 g/dL [facility] Hct 42.8 38.9 - 50.3 % [facility] Plt 224 150 - 400 K/cumm [facility] MPV 11.1 9.1 - 12.3 fL [facility] RBC 4.88 4.30 - 5.80 M/cumm [facility] MCV 87.7 81.3 - 96.4 fL [facility] MCH 30.1 27.1 - 33.3 pg [facility] MCHC 34.3 32.3 - 35.7 g/dL [facility] RDW CV 13.2 11.1 - 14.9 % [facility] RDW SD 42.9 35.7 - 48.1 fL [facility] NRBC abs 0.00 0.00 - 0.01 K/cumm [facility] Blood Venous blood specimen / Unknown 06/29/2024 5:39 AM CDT 06/29/2024 5:52 AM CDT Lyndsay Sal MD LAB BLOOD ORDERABLES Final Result Performing Organization Address City/[facility] Co de Phone Number [facility] Department [place] [address] * Ethanol (06/29/2024 5:39 AM CDT) Ethanol <10 <=10 mg/dL Comment: Interpretive Data Legal limit of intoxication > or = 80 mg/dL Levels > or = 400 mg/dL are potentially TOXIC. Current interpretive data was last revised on 2018. Blood 06/29/2024 5:39 AM CDT 06/29/2024 6:12 AM CDT Lyndsay Sal MD LAB BLOOD ORDERABLES Final Result Performing Organization Address City/[facility] Co de Phone Number [facility] Department [place] [address] * (ABNORMAL) Valproic acid level, total (06/29/2024 [...] Sal MD LAB BLOOD ORDERABLES Final Result [facility] Department [place] [address] * Comprehensive metabolic panel (06/29/2024 5:39 AM CDT) Sodium 142 135 - 145 mmol/L Potassium, pl 4.0 3.3 - 4.9 mmol/L [facility] Chloride 101 97 - 110 mmol/L [facility] CO2 28 22 - 32 mmol/L [facility] Anion gap 13 2 - 15 mmol/L [facility] BUN 7 6 - 25 mg/dL [facility] Creatinine 0.80 0.80 - 1.30 mg/dL [facility] Glucose 107 70 - 199 mg/dL [facility] Comment: Interpretive Data Fasting glucose >/= 126 [...] 2022. Calcium 9.9 8.5 - 10.3 mg/dL [facility] Bilirubin, total 0.4 0.1 - 1.2 mg/dL [facility] Protein, pl 7.9 6.5 - 8.5 g/dL [facility] Albumin 4.7 3.5 - 5.0 g/dL [facility] Alk phos 67 40 - 130 Units/L [facility] ALT 23 7 - 55 Units/L [facility] AST 33 10 - 50 Units/L [facility] Blood 06/29/2024 5:3 9 AM CDT 06/29/2024 6:12 AM CDT Lyndsay Sal MD LAB BLOOD [place]AB[place] [address] * Valproic acid level, total (06/23/2024 8:21 PM CDT) [facility] Valproic Acid 60.0 50.0 - 100.0 mcg/mL Comment: Interpretive Data Therapeutic or toxic effects of anticonvulsant drugs may occur at different concentrations in different patients and the correlation between dose and clinical effect must be evaluated individually. Current interpretative data was last revised on 13. Blood 06/23/2024 8:21 PM CDT 06/23/2024 8:46 PM CDT Narrative [facility] - 06/23/2024 9:18 PM CDT Please draw just prior to giving PM dose of depakote Martell Santana MD LAB BLOOD ORDERABLES Final Result Performing Organization Address [facility] [place] [address] * HIV 1/2 Antibody plus p24 Antigen Blood (06/19/2024 11:58 AM CDT) [facility] HIV 1/2 ab + p24 ag Nonreactive [...] GENERAL ORDERABLES Final Result Performing Organization Address City/[facility] Co de Phone Number [facility] [place] [address] * RPR Blood (06/19/2024 11:58 AM CDT) RPR Nonreactive Nonreactive Blood 06/19/2024 11:5 8 AM CDT 06/19/2024 12:31 PM CDT Martell Santana MD LAB MICROBIOLOGY - GENERAL ORDERABLES Final Result Performing Organization Address City/[facility]/ZIP Co de Phone Number [facility] Department [place] [address] * Urinalysis reflex to microscopic and culture Urine (06/18/2024 2:58 PM CDT) Pathologist [facility] Color, ur Straw Yellow Clarity, ur Clear Clear [facility] Specific gravity, ur 1.010 1.003 - 1.030 [facility] pH, urine 6.0 [facility] Comment: Interpretive Data U rine pH is affected by diet, medications, systemic acid-base disturbances, and renal tubular function. pH may affect urinary stone formation. For example, urine pH below 6.0 may help reduce the tendency for calcium phosphate stones and pH greater than 6.0 may reduce the tendency for uric acid stone formation. Source: [facility] Current Interpretive Data was last revised on 2017 Protein, ur ql Negative Negative [facility] Glucose, ur ql Negative Negative [facility] Ketones, ur Negative Negative [facility] Bilirubin, ur Negative Negative [facility] Blood, ur Negative Negative [facility] Urobilinogen, ur <2.0 <2.0 mg/dL [facility] Nitrite, ur Negative Negative [facility] Leukocyte esterase, ur Negative Negative [facility] UA reflex comment Reflex conditions for microscopic UA and culture not met. [facility] Urine 06/18/2024 2:58 PM CDT 06/18/2024 3:05 PM CDT us Eleuterio Lawson MD LAB MICROBIOLOGY - GENERAL ORD ERABLES Final Result [facility] Department [place] [address] * (ABNORMAL) Drugs of Abuse Screen, Urine without Confirmation (06/18/2024 2:58 PM CDT) [facility] Amphetamine, ur Not Detected CutOff 500ng/mL Comment: Interpretive Data - Amphetamines: Samples containing greater than 500 ng/mL d-methamphetamine or other cross-reacting amphetamine compounds are reported as positive. Amphetamine immunoassays are subject to significant false positive rates due to cross-reactivity of non-amphetamine drugs. Confirmatory testing required for definitive results. Current Interpretive Data was last reviewed 2022. Barbiturates, ur Not Detected CutOff 200ng/mL [facility] Comment: Interpretive Data - Barbiturates: Samples containing greater than 200 ng/mL secobarbital or other cross-reacting barbiturate compounds are reported as positive. False positive and false negative results are possible. Confirmatory testing required for definitive results. Current Interpretive Data was last reviewed 2022. Benzodiazepines, ur Not Detected CutOff 100ng/mL [facility] Comment: Interpretive Data - Benzodiazepines: Samples containing greater than 100 ng/mL nordiazepam or other cross-reacting compounds are reported as positive. False positive and false negative results are possible. Confirmatory testing required for definitive results. Current Interpretive Data was last reviewed 2022. Cannabinoids, ur Screen Positive, presumptive (A) CutOff 50 ng/mL [facility] Comment: Interpretive Data - Cannabinoids: Samples containing greater than 50 ng/mL delta-9 THC -COOH or other cross- reacting compounds are reported as positive. False positive and false negative results are possible. Confirmatory testing required for definitive results. Current Interpretive Data was last reviewed 2022. Cocaine, ur Not Detected CutOff 150ng/mL [facility] Comment: Interpretive Data - Cocaine: Samples containing greater than 150 ng/mL benzoylecgonine or other cross- reacting compounds are reported as positive. False positive and false negative results are possible. Confirmatory testing required for definitive results. Current Interpretive Data was last reviewed 2022. Fentanyl, Ur Not Detected CutOff 5 ng/mL [facility] Comment: Interpretive Data - Fentanyl: Samples containing greater than 5 ng/mL norfentanyl, fentanyl, or other cross-reacting fentanyl compounds are reported as positive. False positive and false negative results are possible. Confirmatory testing required for definitive results. Current Interpretive Data was last reviewed 2023. Methadone, ur Not Detected CutOff 300ng/mL [facility] Comment: Interpretive Data - Methadone: Samples containing greater than 300 ng/mL d,l-methadone or other cross-reacting compounds are reported as positive. False positive and false negative results are possible. Confirmatory testing required for definitive results. Current Interpretive Data was last reviewed 2022. Opiates, ur Not Detected CutOff 300ng/mL [facility] Comment: Interpretive Data - Opiates: Samples containing greater than 300 ng/mL morphine or other cross-reacting compounds are reported as positive. False positive and false negative results are possible. Confirmatory testing required for definitive results. Current Interpretive Data was last reviewed 2022. Oxycodone, ur Not Detected CutOff 100ng/mL [facility] Comment: Interpretive Data - Oxycodone: Samples containing greater than 100 ng/mL oxycodone or other cross-reacting compounds are reported as positive. False positive and false negative results are possible. Confirmatory testing required for definitive results. Current Interpretive Data was last reviewed 2022. Phencyclidine, ur Not Detected CutOff 25 ng/mL [facility] Comment: Interpretive Data - Phencyclidine: Samples containing greater than 25 ng/mL phencyclidine or other cross-reacting compounds are reported as positive. False positive and false negative results are possible. Confirmatory testing required for definitive results. Current Interpretive Data was last reviewed 2022. Urine Creatinine 71 mg/dL [facility] Comment: Interpretive Data Urine Creatinine: < 10 mg/dL is extremely dilute = or > 10 but < 20 mg/dL is dilute = or > 20 mg/dL is normal Current Interpretive Data was last revised on 2017. Urine 06/18/2024 2:58 PM CDT 06/18/2024 3:13 PM CDT Narrative [facility] - 06/18/2024 3:53 PM CDT Drug of Abuse screening is performed by immunoassay for medical purposes only. This is not to be used for Pain Management purposes. us Eleuterio Lawson MD LAB URINE ORDERABLES Final Res ult [facility] Department [place] [address] * [place] CRITICAL CARE ILL/INJURED PATIENT INIT 30-74 MIN [...] of Race in Diagnosing Kidney Disease, JASN 2021). The CKD-EPI equation should not be used for patients with unstable renal function and has not been validated in children and those over 70. Current interpretive data was last reviewed 2021. Blood 06/18/2024 3:30 AM CDT 06/18/2024 3:39 AM CDT us Eleuterio Lawson MD LAB BLOOD ORDERABLES Final Res ult [facility] Department [place] [address] * (ABNORMAL) Differential, auto (06/18/2024 3:30 AM CDT) Neutrophil abs 7.6(H) 1.5 - 6.5 K/cumm Imm gran abs 0.0 0.0 - 0.1 K/cumm [facility] Lymphocyte abs 1.8 0.8 - 3.3 K/cumm [facility] Monocyte abs 1.0(H) 0.2 - 0.8 K/cumm [facility] Eosinophil abs 0.2 0.0 - 0.5 K/cumm [facility] Basophil abs 0.1 0.0 - 0.1 K/cumm [facility] Neutrophil pct 70.8 % [facility] Comment: Interpretive Data Percent cell count reference ranges are not reported, since discordance with absolute values may lead to misinterpretation of CBC data. Current Interpretive Data was last revised on 2017. Imm gran pct 0.3 % [facility] Comment: Interpretive Data Percent cell count reference ranges are not reported, since discordance with absolute values may lead to misinterpretation of CBC data. Current Interpretive Data was last revised on 2017. Lymphocyte pct 17.1 % [facility] Comment: Interpretive Data Percent cell count reference ranges are not reported, since discordance with absolute values may lead to misinterpretation of CBC data. Current Interpretive Data was last revised on 2017. Monocyte pct 9.5 % [facility] Comment: Interpretive Data Percent cell count reference ranges are not reported, since discordance with absolute values may lead to misinterpretation of CBC data. Current Interpretive Data was last revised on 2017. Eosinophil pct 1.8 % [facility] Comment: Interpretive Data Percent cell count reference ranges are not reported, since discordance with absolute values may lead to misinterpretation of CBC data. Current Interpretive Data was last revised on 2017. Basophil pct 0.5 % [facility] Comment: Interpretive Data Percent cell count reference ranges are not reported, since discordance with absolute values may lead to misinterpretation of CBC data. Current Interpretive Data was last revised on 2017. Blood 06/18/2024 3:30 AM CDT 06/18/2024 3:39 AM CDT Eleuterio Lawson MD LAB BLOOD ORDERABLES Final Res ult Performing Organization Address [facility] de Phone Number [facility] Department [place] [address] * Thyroid Function [place] (06/18/2024 3:30 AM CDT) Pathologist [facility] TSH 1.05 0.30 - 4.20 mcIUnit/mL Blood 06/18/2024 3:30 AM CDT 06/18/2024 3:39 AM CDT Eleuterio Lawson MD LAB BLOOD ORDERABLES Final Res ult Performing Organization Address [facility] de Phone Number [facility] Department [place] [address] * (ABNORMAL) CBC with auto differential (06/18/2024 3:30 AM CDT) WBC 10.7(H) 3.8 - 9.9 K/cumm Hgb 14.3 13.0 - 17.5 g/dL [facility] Hct 41.5 38.9 - 50.3 % [facility] Plt 263 150 - 400 K/cumm [facility] MPV 11.0 9.1 - 12.3 fL [facility] RBC 4.74 4.30 - 5.80 M/cumm [facility] MCV 87.6 81.3 - 96.4 fL [facility] MCH 30.2 27.1 - 33.3 pg [facility] MCHC 34.5 32.3 - 35.7 g/dL [facility] RDW CV 13.2 11.1 - 14.9 % [facility] RDW SD 42.7 35.7 - 48.1 fL [facility] NRBC abs 0.00 0.00 - 0.01 K/cumm [facility] Blood 06/18/2024 3:30 AM CDT 06/18/2024 3:39 AM CDT Eleuterio Lawson MD LAB BLOOD ORDERABLES Final Res ult Performing Organization Address [facility] de Phone Number [facility] [place] [address] * Ethanol (06/18/2024 3:30 AM CDT) Ethanol <10 <=10 mg/dL Comment: Interpretive Data Legal limit of intoxication > or = 80 mg/dL Levels > or = 400 mg/dL are potentially TOXIC. Current interpretive data was last revised on 2018. Blood 06/18/2024 3:30 AM CDT 06/18/2024 3:39 AM CDT Eleuterio Lawson MD LAB BLOOD ORDERABLES Final Res ult Performing Organization Address [facility] Co de Phone Number [facility] [place] [address] * Basic metabolic panel (06/18/2024 3:30 AM CDT) Sodium 143 135 - 145 mmol/L Potassium, pl 4.1 3.3 - 4.9 mmol/L [facility] Chloride 106 97 - 110 mmol/L [facility] CO2 25 22 - 32 mmol/L [facility] Anion gap 12 2 - 15 mmol/L [facility] BUN 8 6 - 25 mg/dL [facility] Creatinine 1.00 0.80 - 1.30 mg/dL [facility] Glucose 106 70 - 199 mg/dL [facility] Comment: Interpretive Data Fasting glucose >/= 126 [...] 2022. Calcium 9.8 8.5 - 10.3 mg/dL [facility] Blood 06/18/2024 3:30 AM CDT 06/18/2024 3:39 AM CDT us Eleuterio Lawson MD LAB BLOOD ORDERABLES Final Res ult [facility] [place] [address] * Hepatitis C antibody Blood (10/02/2023 5:43 AM CDT) Hep C Ab Nonreactive Nonreactive Comment:Antibodies to HCV no t detected. Does NOT exclude the possibility of recent exposure to HCV. Current interpretive data was last revised on 21 Blood 10/02/2023 5:43 AM CDT 10/02/2023 7:40 AM CDT us Denise Reyes MD LAB MICROBIOLOGY - GEN ERAL ORDERABLES Final Result [facility] [place] [address] from Last 3 Months or Most Recently Relevant to Health Maintenance Insurance [employer] Member Subscriber Plan / Payer (Ef fective 2024-Present) Name:José Miguel Marshall Relation to Subscriber:Self Name:José Miguel Marshall Payer ID:[id number] Group ID:Not on file Type:[place] Address: [address] [employer] Member Subscriber Plan / Payer (Ef fective 2024-Present) Name:José Miguel Marshall Relation to Subscriber:Self Name:José Miguel Marshall Payer ID:[id number] Group ID:Not on file Type:[place] Address: [address] [employer] Member Subscriber Plan / Payer (Ef fective 2024-Present) Name:José Miguel Marshall Relation to Subscriber:Self Name:José Miguel Marshall Payer ID:[id number] Group ID:Not on file Type:[place] Address: [place] [id number] Advance Directives For more information, please contact: [phone] * Full Code (Latest Code Status on [...] 6:20 PM 02/22/2024 6:38 PM Care Teams 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
[2024-08-27 00:46] LABS: Alanine Aminotransferase 22 U/L (6-50); Albumin Level 4.2 g/dL (3.5-5.1); Alkaline Phosphatase 38 U/L (38-126); Anion Gap 11 mmol/L (4-12); Aspartate Amino Transferase 28 U/L (17-59); Bilirubin,Total 0.5 mg/dL (0.2-1.3); Blood Urea Nitrogen 10 mg/dL (9-20); Carbon Dioxide 24 mmol/L (22-30); Chloride 101 mmol/L (98-107); Estimated CRCL calculation 119 ml/min; Estimated Glomerular Filt Rate > 60; Glucose 154 mg/dL (65-110); Potassium 3.8 mmol/L (3.4-5.0); Sodium 136 mmol/L (137-145)
[2024-08-27 01:00] LABS: Creatine Kinase 231 U/L (55-170)
[2024-08-27 02:15] LABS: Add Urine Microscopic? NO; Appearance Urine Clear (Clear); Bilirubin Urine Negative (Negative); Blood Urine Negative (Negative); Color Urine Yellow (Yellow); Glucose Urine UA 1+ mg/dL (Negative); Ketones Urine Negative (Negative); Leukocyte Esterase Ur Negative LEU/UL (Negative); Nitrate Urine Negative (Negative); Protein Urine Negative (Negative); Specific Grav Ur 1.008 (1.001-1.035); Urobilinogen Urine 0.2 mg/dL (<2.0); pH Urine 6.5 (5.0-9.0)
--- NOTE | 2024-08-27 02:20 | PC.NURSE ---
Patient is alert and oriented, able to answer orientation questions at this time. Patient is not combative anymore. Denies suicidal or homicidal ideation. Asking for a turkey sandwhich and soda. EDP Dr. Ji made aware and states patient can have food and drink that is now provided.
[2024-08-27 02:31] LABS: Amphetamine Screen Urine Negative (Negative); Barbiturate Screen Urine Negative (Negative); Benzodiazepines Screen Urine Negative (Negative); Cannabinoid Screen Urine Positive (Negative); Cocaine Screen Urine Negative (Negative); Methadone Screen Urine Negative (Negative); Opiate Screen Urine Negative (Negative); Phencyclidine Screen Urine Negative (Negative)
[2024-08-27 03:12] LABS: Acetaminophen < 10 ug/mL (10-30); Ethanol < 10 mg/dL (<10); Salicylate < 1.0 mg/dL (2-20)
== END 2024-08-27 03:34 | disposition home or self-care (01) ==
PROVIDERS: Emergency Provider Emergency Medicine
DX: F20.9 Schizophrenia, unspecified (principal); R41.82 Altered mental status, unspecified; Z79.899 Other long term (current) drug therapy
CPT/HCPCS: 36415; 70450; 80053; 80143; 80179; 80307; 81003; 82077; 82550; 84443; 85025; 96372; 99284; J1200; J1630; J2060